=== PATIENT | female | born 1945 | race Caucasian/White ===

== ENCOUNTER 2025-03-05 12:03 | Inpatient (IN) | payer MEDICARE, SELFPAY ==
[2025-03-05] VITALS (12 sets, daily range): BP systolic 110–142; BP diastolic 40–112; PULSE 68–82; RESP 15–24; TEMP 36.9–37.2; O2SAT 91–98
--- NOTE | 2025-03-05 12:00 | DI.CT_ITS ---
Exam(s) CT RENAL COLIC WO EXAM: CT RENAL COLIC WO CLINICAL HISTORY: right flank and lower back pain. TECHNIQUE: Imaging Protocol: Axial computed tomography images with coronal and sagittal reformatted images were created and reviewed CONTRAST MATERIAL: Intravenous: none Oral: None COMPARISON: No exams were available for comparison FINDINGS: VISUALIZED LUNG BASES: There are bilateral pleural effusions, right larger than left. Mild infiltrate in the right lung base. Large hiatal hernia noted in the posterior mediastinum.. ABDOMEN: There is some skin thickening over the anterior right side of the abdomen and subcutaneous streaking-probable cellulitis pattern there is no drainable fluid collection at this level. A metallic foreign body is noted in the subcutaneous tissues anteriorly at the umbilicus level. No abscess seen at this level. There is a small amount of ascites in the right pericolic gutter region. Also in the most dependent aspect of the pelvis. LIVER: Somewhat cirrhotic appearing liver, difficult to assess without IV contrast. There is no obvious focal mass in the liver evident on this non infused study. GALLBLADDER/BILIARY: Gallbladder surgically absent. CBD is not dilated. PANCREAS: No evidence of pancreatic mass nor dilatation of the pancreatic duct. SPLEEN: Spleen is not enlarged. No obvious intrasplenic lesions. ADRENALS: There are no significant adrenal masses. KIDNEYS:There is a parapelvic cyst in the inferior aspect of the left kidney which measures 3 cm. Does not require further workup. There is a larger partially exophytic cyst off the inferior pole of the opposite-right kidney which measures 7 x 6.6 cm. There are no solid renal masses. No calculi evident in the kidneys. No solid renal masses. No hydronephrosis. No hydroureter.. ABDOMINAL AORTA: Abdominal aorta is not enlarged. There is calcified plaque at the origin of the celiac and superior mesenteric arteries. Patency is difficult to assess as there is no IV contrast. However, there are no obvious ischemic appearing bowel loops. LYMPH NODES: No significant lymphadenopathy. ABDOMINAL WALL: Right anterior abdominal and pelvic wall cellulitis pattern. GI: There is no evidence of bowel obstruction, free air, nor abscess. PELVIS: LYMPH NODES: There is no intrapelvic nor inguinal adenopathy. GI: No evidence of appendicitis.Sigmoid diverticulosis but no obvious acute diverticulitis seen. URINARY BLADDER: No calculi nor obvious masses evident REPRODUCTIVE: Uterus is surgically absent. No abnormal adnexal masses. There is some free fluid in the dependent aspect of the pelvis noted. OSSEOUS: No fractures. Severe advanced degenerative changes noted in the right hip. Left hip unremarkable. SI joints unremarkable. Multilevel degenerative disc disease in lumbar spinal scoliosis convex left. IMPRESSION: 1. Somewhat cirrhotic appearing liver and a small amount of ascites. Also bilateral pleural effusions, right larger than left and mild infiltrate lung bases. 2. Skin thickening and subcutaneous infiltration of the fat over the right lower anterior abdominal wall, having the appearance of cellulitis. There is no drainable fluid collection in the subcutaneous fat. 3. Sigmoid diverticulosis without evidence of acute diverticulitis. Prior cholecystectomy and hysterectomy. Preliminary virtual Radiology report was reviewed. RADIATION DOSE DELIVERED: 1,050.06mGy.cm Total DLP DATA REPOSITORY: All CT scans at this facility are submitted to the National Radiology Data Registry (NRDR) Dose Index Registry (DIR) with the [employer] (ACR). RADIATION OPTIMIZATION: All CT scans at this facility use at least one of these dose optimization techniques: automated exposure control; mA and/or kV adjustment per patient size (includes targeted exams where dose is matched to clinical indication); or iterative reconstruction.
--- NOTE | 2025-03-05 12:15 | DI.CT_ITS ---
Exam(s) CT LUMBAR SPINE RECONS EXAM: CT LUMBAR SPINE RECONS CLINICAL HISTORY: lower back pain. TECHNIQUE: Imaging Protocol: Axial computed tomography images with coronal and sagittal reformatted images were created and reviewed COMPARISON: CT CT RENAL COLIC WO from 03/05/2025 FINDINGS: Bones: There are no acute compression fractures but there is multilevel chronic degenerative disc disease.. There are no lytic osseous lesions evident. INDIVIDUAL LEVELS: T12-L1:No disc herniation nor canal stenosis. Mild facet joint degenerative changes. No foraminal stenosis. L1-2: Chronic advanced disc space narrowing and anterior osseous lipping. Also vacuum phenomena seen within the disc space. There is mild degenerative retrolisthesis of L1 upon L2. Annular bulging. Mild central spinal canal stenosis. No significant facet arthropathy. Severe bilateral foraminal st enosis. L2-3: This level also exhibits advanced disc space narrowing, predominately right-sided and there also lateral right-sided osteophytes. Posteriorly there is no obvious disc herniation. Mild central canal stenosis evident. Mild facet joint degenerative changes. No significant foraminal stenosis on the left side. However, there is severe spinal canal stenosis on the right side, this mostly related to the asymmetric right-sided disc space narrowing. L3-4: This level exhibits chronic disc space narrowing and sub endplate sclerosis. There is mild degenerative posterior retrolisthesis of L3 upon L4. There is no distinct focal disc herniation. There is mild central canal stenosis. There is mild foraminal stenosis on the left side and more prominent foraminal stenosis on the right side at this level. L4-5: This level exhibits mild uniform disc space narrowing and vacuum phenomenon within the disc space. Posteriorly there is broad annular bulging with moderate central spinal canal stenosis. There is also significant bilateral facet arthropathy. There is moderate-severe central spinal canal stenosis. Moderate bilateral foraminal stenosis. L5-S1: There is partial fusion of this disc space. No disc herniation at this level. Central canal dimensions are lower normal. There are advanced facet joint degenerative changes bilaterally. There is moderate-severe bilateral foraminal stenosis, this mostly related to posterior annular bulging and facet arthropathy. The visualized sacroiliac joints and sacrum appear unremarkable. PARASPINAL SOFT TISSUES: Visualized paraspinal tissues appear unremarkable. IMPRESSION: 1. No acute fractures. 2. Multi level chronic degenerative disc disease and facet arthropathy. 3. There is moderate-severe spinal canal stenosis at L4-5 level and milder canal stenosis at levels above this level. There is also significant multilevel significant foraminal stenosis as described per individual level as described above. Preliminary virtual Radiology report was reviewed. RADIATION DOSE DELIVERED: 1,050.06mGy.cm Total DLP DATA REPOSITORY: All CT scans at this facility are submitted to the National Radiology Data Registry (NRDR) Dose Index Registry (DIR) with the [employer] (ACR). RADIATION OPTIMIZATION: All CT scans at this facility use at least one of these dose optimization techniques: automated exposure control; mA and/or kV adjustment per patient size (includes targeted exams where dose is matched to clinical indication); or iterative reconstruction.
--- NOTE | 2025-03-05 12:16 | ED.GENADUL_ITS ---
Discharge Plan Disposition Patient Disposition: Admit to [facility] Condition: Stable Discharge Details Clinical Impression: Lumbar back pain, Lung infiltrate, Chills Primary Care Provider: Rambo Rg ED Provider: Johnny Brennan [place] Meds and New Rx's Prescriptions: No Action clotrimazole 1 % cream 1 applic topical BID cyclobenzaprine 5 mg tablet 5 mg PO TID PRN omeprazole 20 mg capsule,delayed release(DR/EC) 20 mg PO DAILY ursodiol 500 mg tablet 500 mg PO .COMPLEX Rx Instructions: 500 mg orally q am and 1000mg q pm; ibuprofen [Advil] 200 mg tablet 400 mg PO Q6H PRN HPI General Mode of arrival: EMS . Date/Time Provider Initiated Documentation: 03/05/25 12:09 . Limitations to Documentation: no limitations . Information obtained by: patient . History of Present Illness 79 year old F presents to the emergency department with the chief complaint of lower back pain, described as moderate, Quality is described as aching, and is localized to the back. Patient reports no radiation. Patient started experiencing this day(s) (2) and it has been constant. No relieving factors improve symptom(s), No exacerbating factors reported . Patient notes denies chest pain and shortness of breath. Patient did receive the following treatments prior to arrival, none Related Data Home Medications ?Medication ?Instructions ?Recorded ?Confirmed clotrimazole 1 % topical cream 1 applic topical BID 03/05/25 cyclobenzaprine 5 mg tablet 5 mg PO TID PRN 01/04/25 0 03/05/25 omeprazole 20 mg capsule,delayed 20 mg PO DAILY 03/05/25 release ursodiol 500 mg tablet 500 mg PO .COMPLEX 01/04/25 03/05/25 ibuprofen 200 mg tablet (Advil) 400 mg PO Q6H PRN 02/1103/05/25 Allergies Allergy/AdvReac Type Severity Reaction Status Date / Time Penicillins Allergy Unknown Unknown Verified 03/05/25 12:20 scopolamine Allergy Unknown Unknown Verified 03/05/25 12:20 General Stated Complaint: GenMedical ALVERTO: 3 Review of Systems All systems reviewed & are unremarkable except as noted in HPI and below Constitutional Constitutional: Denies chills, Denies fever(s) and Denies weakness Cardiovascular Cardiovascular: Denies chest pain and Denies dyspnea Respiratory Respiratory: Denies cough and Denies dyspnea Gastrointestinal Gastrointestinal: Denies abdominal pain, Denies nausea and Denies vomiting Musculoskeletal Musculoskeletal: Reports back pain Neurologic Neurologic: Denies weakness Exam Const General: no acute distress Orientation: alert [facility] Head: normal to inspection Ears: external ears normal General nose exam: external nose normal Mouth: moist mucous membranes Eyes General: appearance normal, both eyes and all related structures Neck Neck: normal visual inspection Resp Effort & Inspection: normal respiratory effort and able to speak in complete sentences Cardio Rate: regular rate GI Palpation: soft and nontender Back/Spine/Pelvis Back: no CVA tenderness Thoracic/Lumbar Spine: No thoracic spinal tenderness and lumbar spinal tenderness Skin General skin exam: no rashes or lesions noted Neuro General: patient alert and patient oriented x3 Extrem General: normal to inspection Psych Mental Status: mental status grossly normal Course Vital Signs Vital signs: Vital Signs Temperature 37.2 C 03/05/25 12:04 Pulse 79 03/05/25 12:04 Respiratory Rate 18 03/05/25 12:04 Blood Pressure 122/40 L 03/05/25 12:04 Pulse Oximetry 92 03/05/25 12:04 Temperature 37.2 C 03/05/25 12:04 Temperature Source Oral 03/05/25 12:04 Pulse 79 03/05/25 12:04 Respiratory Rate 18 03/05/25 12:04 Blood Pressure 122/40 L 03/05/25 12:04 Pulse Oximetry 92 03/05/25 12:04 Medical Decision Making 79-year-old female who states she has a history of rheumatoid arthritis and has chronic issues with her hips and back comes in with 2 days of intermittent chills without fevers as well as increased lower back pain. Denies any cough, chest pain, difficulty breathing, headaches, neck stiffness. She is stable on arrival and localizes the pain to the right lower back. Is no visible or palpable deformities. She has no saddle anesthesia. Intact distal sensation pulses. No leg swelling or calf tenderness. Suspect musculoskeletal back pain versus disc herniation but given her reported chills will check CBC CMP procalcitonin lactate UA and CT renal colic and recons of the lumbar spine. Patient feels better, x-ray per V rad showed no acute findings other than a pleural effusion which is likely related to her known cirrhosis. In-house radiology read as possible mediastinal mass recommended CT. CT renal colic and lumbar spine shows no acute findings. She has known cirrhosis which she is aware of. They also did note infiltrate on the left base of the lungs on the renal colic CT and states she has had a cough. Procalcitonin elevated but could be related to her underlying liver disease rather than sepsis. She is hemodynamically stable and has no fevers and no leukocytosis. Will reevaluate after CT chest ct on my read shows no mediastinal mass waiting for radiology read. Patient with 2 nurses was not able to get from the bed to a wheel chair. Will order iv dilaudid and discuss with hospitalist about admission Differential Diagnosis Differential Diagnosis: Muscle spasm, compression fracture, kidney stone, UTI Lab Data Lab results reviewed: Yes I reviewed the patient's lab results. PFSH All Active Problems (Updated 03/05/25 @ 16:41 by Johnny Brennan MD) Chills (Acute) Lung infiltrate (Acute) Lumbar back pain (Acute) Vitamin D deficiency (Acute) Senile cataract (Acute) Obesity (Chronic) GERD (gastroesophageal reflux disease) (Chronic) Biliary cirrhosis (Acute) Surgical History (Updated 01/04/25 @ 11:24 by Sergio Woodall RN) History of tonsillectomy History of hand surgery Left thumb tendon repair History of hysterectomy History of cholecystectomy History of appendectomy Social History Smoking/Tobacco Use Status: Former Tobacco Use Smoking risk assessment performed?: Yes Alcohol Intake: current Alcohol Intake frequency: a few times a week Alcohol type: beer, wine and hard liquor Drug use: Daily Substance use type: marijuana Housing: house Do you feel safe at home: Yes Do you feel safe in your relationship?: Yes
[2025-03-05 12:23] LABS: BE (Venous) 0 mmol/L (-2-3); HCO3 (Venous) 25 mmol/L (23-28); O2 Sat (Venous) 75 %; TCO2 (Venous) 22 mmol/L (24-29); pCO2 (Venous) 37 mmHg (41-51); pO2 (Venous) 41 mmHg
[2025-03-05 12:24] LABS: Abs Immature Grans 0.04 10^3/uL (0.0-0.06); HCT 35.5 % (36.0-46.0); HGB 11.4 g/dL (11.2-15.7); Immature Grans % 0.4 %; MCH 28.8 pg (27.0-33.0); MCHC 32.1 % (32.0-36.0); MCV 90 fL (80-95); MPV 9.7 fL (8.0-11.0); Platelet Count 153 10^3/uL (130-400); RBC 3.96 10^6/uL (3.93-5.22); RDW 14.4 % (11.7-14.6); RDW-SD 47.8 fL; WBC 10.54 10^3/uL (4.4-10.8)
--- NOTE | 2025-03-05 12:28 | DI.RAD_ITS ---
Exam(s) XR CHEST 2V PA LATERAL EXAM: XR CHEST 2V PA LATERAL CLINICAL HISTORY: ?pneumonia. TECHNIQUE: 2D digital imaging was performed. COMPARISON: CT CT RENAL COLIC WO from 03/05/[address] LUMBAR SPINE RECONS from 03/05/2025 FINDINGS: 2 views: There is mild cardiomegaly. There is abnormal widening of the right side of the mediastinum and significant narrowing of the trachea. Findings are consistent with possible mediastinal mass. There is also a hiatal hernia. Left lung is clear. There is a small right pleural effusion. Degenerative changes in both shoulders noted. IMPRESSION: Right pleural effusion. Abnormal widening of the right-side of the mediastinum and significant narrowing of the airway. Suspect mediastinal mass. Chest CT scan recommended. Preliminary virtual Radiology report was reviewed. Final report and recommendations called by myself to ER physician 03/05/2025 at 2:22 p.m. DATA REPOSITORY: RADIATION DOSE DELIVERED:
[2025-03-05] MEDS: Ketorolac 15 MG/ML VIAL IVP (12:31)
[2025-03-05 12:52] LABS: ALT 21 U/L (14-59); AST 29 U/L (15-37); Albumin 3.0 g/dL (3.4-5.0); Alkaline Phosphatase 100 U/L (46-116); Anion Gap 9.4 mmol/L (3-11); BUN 18 mg/dL (7-18); Bilirubin, Total 1.7 mg/dL (0.2-1.0); CO2 26.6 mmol/L (21.0-32.0); Calcium 8.9 mg/dL (8.5-10.1); Chloride 100 mmol/L (98-107); Estimated GFR 50.48 (mL/min/1.73m2); Glucose 112 mg/dL (74-106); Magnesium 1.7 mg/dL (1.8-2.4); Potassium 3.5 mmol/L (3.5-5.1); Sodium 136 mmol/L (136-145); TSH (W/Ref FT4) 3.75 uIU/mL (0.36-3.74); Total Protein 6.9 g/dL (6.4-8.2)
[2025-03-05 13:00] LABS: COVID-19 PCR Negative (Negative); RSV PCR Negative (Negative)
[2025-03-05 13:13] LABS: Procalcitonin 1.49 ng/mL
--- NOTE | 2025-03-05 13:42 | DI.VRAD_ITS ---
PROCEDURE INFORMATION: Exam: XR Chest Exam date and time: 03/05/2025 1:19 PM Age: 79 years old Clinical indication: Other: ? Pneumonia TECHNIQUE: Imaging protocol: Radiologic exam of the chest. Views: 2 views. COMPARISON: CT RENAL COLIC WO 03/05/2025 1:00 PM FINDINGS: Lungs: No consolidation. Pleural spaces: Small right pleural effusion. No pneumothorax. Heart/Mediastinum: Tortuous aorta and moderate cardiomegaly Bones/joints: Unremarkable. IMPRESSION: Small right pleural fluid Dictated and Authenticated by: Osvaldo Crowder MD. Orderin Mika Truner MD
--- NOTE | 2025-03-05 13:43 | DI.VRAD_ITS ---
PROCEDURE INFORMATION: Exam: CT Abdomen And Pelvis Without Contrast Exam date and time: 03/05/2025 1:00 PM Age: 79 years old Clinical indication: Other: Right flank lower back pain TECHNIQUE: Imaging protocol: Computed tomography of the abdomen and pelvis without contrast. COMPARISON: CT LUMBAR SPINE RECONS 03/05/2025 1:00 PM FINDINGS: Small pleural fluid and subsegmental atelectasis. Calcified left lower lobe granuloma. Moderate to large hiatal hernia Liver: Cirrhosis. Gallbladder and biliary ducts: Normal. No calcified stones. No ductal dilation. Pancreas: Normal. No ductal dilation. Spleen: Normal. No splenomegaly. Adrenal glands: Normal. No mass. Kidneys and ureters: Renal cysts No hydronephrosis. Stomach and bowel: Colonic diverticulosis No obstruction. No mucosal thickening. Appendix: No evidence of appendicitis. Intraperitoneal space: Small ascites No free air. No significant fluid collection. Vasculature: Unremarkable. No abdominal aortic aneurysm. Lymph nodes: Unremarkable. No enlarged lymph nodes. Urinary bladder: Unremarkable as visualized. Reproductive: Prior hysterectomy. Bones/joints: Unremarkable. No acute fracture. Soft tissues: Mild infiltration in the right lower anterior abdominal wall with overlying skin thickening IMPRESSION: Cirrhosis and small ascites Small pleural fluid Colonic diverticulosis without diverticulitis Nonspecific skin thickening and subcutaneous infiltration in the right lower abdominal wall. Correlate clinically for cellulitis. No discrete collection Dictated and Authenticated by: Osvaldo Crowder MD. Orderin Mika Turner MD
--- NOTE | 2025-03-05 13:44 | DI.VRAD_ITS ---
PROCEDURE INFORMATION: Exam: CT Lumbar Spine Without Contrast Exam date and time: 03/05/2025 1:00 PM Age: 79 years old Clinical indication: Other: Lower back pain TECHNIQUE: Imaging protocol: Computed tomography of the lumbar spine without contrast. Radiation optimization: All CT scans at this facility use at least one of these dose optimization techniques: automated exposure control; mA and/or kV adjustment per patient size (includes targeted exams where dose is matched to clinical indication); or iterative reconstruction. COMPARISON: CT RENAL COLIC WO 03/05/2025 1:00 PM FINDINGS: Bones/joints: No acute fracture. Mild levoscoliosis of the lumbar spine. Chronic multilevel loss of vertebral body height and loss of lumbar lordosis presumed degenerative. Retrolisthesis of L2 on L3 and L3 on L4 presumed degenerative. Minimal anterolisthesis of L4 on L5 and L5 on S1 Severe multilevel foraminal stenosis most pronounced at L3-L4 and L5-S1. Moderate central canal stenosis at L4-L5. Soft tissues: Unremarkable. IMPRESSION: Multilevel degenerative changes most pronounced at L3-L4 and L4-L5 Dictated and Authenticated by: Osvaldo Crowder MD. Orderin Mika Turner MD
--- NOTE | 2025-03-05 14:15 | DI.CT_ITS ---
Exam(s) CT CHEST W EXAM: CT CHEST W CLINICAL HISTORY: ?mediastinal mass. TECHNIQUE: Multi planar reconstructions were performed. CONTRAST MATERIAL: Omnipaque 350; 75 cc COMPARISON: CR,XR XR CHEST 2V PA LATERAL from 03/05/2025 FINDINGS: CHEST: LUNGS: Small bilateral pleural effusions, right larger than left. Calcified granulomas noted in left lung base posterior basal segment left lower lobe. There is mild infiltrate in the right lower lobe. Lesser amount in the posterior basal segment of the left lower lobe. No significant focal findings in the trachea and mainstem bronchi. No bronchiectasis. MEDIASTINUM: There is a large retrocardiac hiatal hernia. There is no hilar nor mediastinal adenopathy. The right mediastinal finding on chest x-ray appears to correspond to a somewhat ectatic SVC but there is no mass nor lymphadenopathy at this level. Visualized thyroid unremarkable. CARDIAC: Mild cardiomegaly. No pericardial effusion.Caliber of the thoracic aorta is within normal limits. No evidence of dissection. VISUALIZED UPPER ABDOMEN:Previous cholecystectomy. OSSEOUS: No fractures. No significant osseous lesions.. IMPRESSION: 1. Large retrocardiac hiatal hernia. No other mediastinal masses. The finding on chest x-ray appears to correspond to a somewhat ectatic SVC. 2. Mild cardiomegaly. No pericardial effusion. 3. Infiltrates in the posterior basal segment of both lower lobes, larger on the right side and there is also a small right pleural effusion. 4. There are few lymph nodes in the right infrahilar region around the right main pulmonary vein. These correspond to a small right pericardiac density on chest x-ray. Findings discussed by phone with ER physician 03/05/2025 at 4:35 p.m. RADIATION DOSE DELIVERED: 470.51mGy.cm Total DLP DATA REPOSITORY: All CT scans at this facility are submitted to the National Radiology Data Registry (NRDR) Dose Index Registry (DIR) with the [employer] (ACR). RADIATION OPTIMIZATION: All CT scans at this facility use at least one of these dose optimization techniques: automated exposure control; mA and/or kV adjustment per patient size (includes targeted exams where dose is matched to clinical indication); or iterative reconstruction.
[2025-03-05 15:06] LABS: Glucose Negative (Negative)
[2025-03-05 15:19] LABS: RBC 0-2 HPF (0-2)
[2025-03-05 15:20] LABS: C & S Indicated? No
--- NOTE | 2025-03-05 17:15 | W.PM.HP.N ---
Date of service: 03/05/25 Time of Service: 17:15 Assessment and Plan Assessment and plan (1) Community acquired bilateral lower lobe pneumonia: Status: Acute Assessment and plan: admit to med/surg continue levaquin initiated in the ED d/t allergy profile duoneb qid, albuterol prn add mucinex I/S and acapella (2) GERD (gastroesophageal reflux disease): Status: Chronic Assessment and plan: continue PPI (3) Biliary cirrhosis: Status: Acute Assessment and plan: stable (4) Obesity: Status: Chronic Assessment and plan: nutrition consultation (5) Low back pain: Status: Acute Assessment and plan: scheduled apap ibuprofen prn lidocaine patch PT consultation discussed with Dr Martinez History of Present Illness Narrative: This is 79-year-old female patient past medical history significant for obesity GERD, cirrhosis, back pain who presents to the emergency department for complaints of generalized weakness malaise back pain exacerbation. Workup in the emergency department most concerning for bilateral lower lobe pneumonia. She also was unable to safely be re-ambulated, requiring dilaudid IV. Review of Systems All systems reviewed & are unremarkable except as noted in HPI and below PFSH All Active Problems (Updated 03/05/25 @ 18:14 by Joan Larkin NP) Low back pain (Acute) Community acquired bilateral lower lobe pneumonia (Acute) Chills (Acute) Lung infiltrate (Acute) Lumbar back pain (Acute) Vitamin D deficiency (Acute) Senile cataract (Acute) Obesity (Chronic) GERD (gastroesophageal reflux disease) (Chronic) Biliary cirrhosis (Acute) Surgical History (Updated 01/04/25 @ 11:24 by Sergio Woodall RN) History of tonsillectomy History of hand surgery Left thumb tendon repair History of hysterectomy History of cholecystectomy History of appendectomy Social History Smoking/Tobacco Use Status: Former Tobacco Use Smoking risk assessment performed?: Yes Alcohol Intake: current Alcohol Intake frequency: a few times a week Alcohol type: beer, wine and hard liquor Drug use: Daily Substance use type: marijuana Housing: house Do you feel safe at home: Yes Do you feel safe in your relationship?: Yes Meds Allergies and Home Medications Allergies Allergy/AdvReac Type Severity Reaction Status Date / Time Penicillins Allergy Unknown Unknown Verified 03/05/25 12:20 scopolamine Allergy Unknown Unknown Verified 03/05/25 12:20 Home Medications ?Medication ?Instructions ?Recorded ?Confirmed ?Type clotrimazole 1 % topical cream 1 applic topical BID 01/04/25 03/05/25 History cyclobenzaprine 5 mg tablet 5 mg PO TID PRN 01/04/25 03/05/25 History omeprazole 20 mg capsule,delayed 20 mg PO DAILY 01/04/25 03/05/25 History release ursodiol 500 mg tablet 500 mg PO .COMPLEX 01/04/25 03/05/25 History ibuprofen 200 mg tablet (Advil) 400 mg PO Q6H PRN 03/05/25 03/05/25 History Results Labs 03/05/25 12:14 03/05/25 12:00 Labs: Laboratory Results - last 24 hr 03/05/25 03/05/25 03/05/25 12:00 12:14 14:58 WBC 10.54 RBC 3.96 Hgb 11.4 Hct 35.5 L MCV 90 MCH 28.8 MCHC 32.1 RDW 14.4 Plt Count 153 MPV 9.7 Immature Gran % 0.4 Neutrophils % 83.5 Lymphocytes % 4.6 Monocytes % 11.3 Eosinophils % 0.0 Basophils % 0.2 Nucleated RBC % 0.0 Absolute Neutrophils 8.81 H Absolute Lymphocytes 0.48 L Absolute Monocytes 1.19 H Absolute Eosinophils 0.00 Absolute Basophils 0.02 VBG pH 7.43 H VBG pCO2 37 L VBG pO2 41 VBG HCO3 25 VBG Total CO2 22 L VBG O2 Saturation 75 VBG Base Excess 0 VBG Lactate 1.3 Sodium 136 Potassium 3.5 Chloride 100 Carbon Dioxide 26.6 Anion Gap 9.4 BUN 18 Creatinine 1.1 H Est GFR (CKD-EPI 2020) 50.48 Glucose 112 H Calcium 8.9 Magnesium 1.7 L Total Bilirubin 1.7 H AST 29 ALT 21 Alkaline Phosphatase 100 Total Protein 6.9 Albumin 3.0 L Procalcitonin 1.49 TSH 3.75 H Free T4 1.39 Urine Color Dark Yellow Urine Clarity Sl Cloudy Urine pH 5.5 Ur Specific [place] 1.015 Urine Protein 30 H Urine Ketones Trace H Urine Blood Negative Urine Nitrite Negative Urine Bilirubin Small H Urine Urobilinogen 1.0 H Ur Leukocyte Esterase Trace H Urine RBC 0-2 Urine WBC 3-5 Ur Epithelial Cells Few Urine Crystals Negative Urine Bacteria Moderate Urine Casts 3-5 Hyaline Urine Mucus Negative Urine Other Few Transitional Ur Culture Indicated? No Urine Glucose Negative COVID-19 Source Nasopharynx SARS-CoV-2 (PCR) Negative Influenza Type A (PCR) Negative Influenza Type B (PCR) Negative RSV (PCR) Negative Last Vital Signs Temp 37.2 C 03/05/25 12:04 Pulse 79 03/05/25 12:04 Resp 18 03/05/25 12:04 BP 122/40 L 03/05/25 12:04 Pulse Ox 92 03/05/25 12:04 PAWSS Have you Been Recently Intoxicated or Drunk Within the Last 30 days?: No Have you Ever Experienced Previous Episodes of Alcohol Withdrawal?: No Have you ever Experienced Withdrawal Seizures?: No Have you ever Experienced Delirium Tremens(DT)s?: No Have you ever undergone Alcohol Rehabilitation Treatment (i.e, inpt ot outpatient treatment programs)?: No Have you ever Experienced Blackouts?: No Have you ever Combined Alcohol with other Downers within the last 90 days?: No Have you ever Combined Alcohol with any other Substance of Abuse during the last 90 days?: No Result: 0 Time Spent Time spent with Patient: 55-74 minutes Time was spent: preparing to see the patient(eg.review tests), obtaining and/or reviewing separately otained hiistory, ordering medications,tests, procedures and indepentently interpreting results
[2025-03-05] MEDS: HYDROmorphone 2 MG/ML SYR 1 MG IVP (17:35)
[2025-03-05] MEDS: levoFLOXacin 750 MG/150 ML BAG 100 MG IVPB (17:36)
--- NOTE | 2025-03-05 17:46 | W.PC.ACHO ---
Registration Status: REG ER Primary Language: Preferred Language: ED Information & Data Chief Complaint GenMedical 03/05/25 12:18 Chief Complaint GenMedical 03/05/25 12:17 Triage Note STEPHON - has not been feeling 03/05/25 12:04 well since thursday Hot cold flashes with increased fatigue. Lower right back pain increased yesterday (Last Updated 01/04/25 @ 11:24 by Sergio Woodall RN) History of tonsillectomy History of hand surgery History of hysterectomy History of cholecystectomy History of appendectomy Most Recent Vital Signs Temperature 37.2 C 03/05/25 12:04 Temperature Source Oral 03/05/25 12:04 Pulse 79 03/05/25 12:04 Respiratory Rate 18 03/05/25 12:04 Blood Pressure 122/40 L 03/05/25 12:04 Pulse Oximetry 92 03/05/25 12:04 Pain Level 5 03/05/25 17:35 Allergies Penicillins Allergy (Unknown, Verified 03/05/25 12:20) Unknown scopolamine Allergy (Unknown, Verified 03/05/25 12:20) Unknown Precautions Isolation Standard precaution 03/05/25 12:18 Active Medications Generic Name Dose Route Start Last Admin Trade Name Traeq PRN Reason Stop Dose Admin Levofloxacin 750 mg in 150 mls @ 100 mls/hr 03/05/25 16:36 03/05/25 17:36 Levaquin Premixed Bag IVPB 03/05/25 18:05 100 mls/hr NOW ONE Administration IV IV Catheter Type [Right Saline Lock Antecubital] IV Catheter Gauge [Right 18 Antecubital] Diet Orders Category Date Time Status Regular/Normal [DIET] Nutrition 03/05/25 Dinner Active Diagnostics 03/05/25 03/05/25 03/05/25 Range/Units 14:58 12:14 12:00 WBC 10.54 (4.4-10.8) 10^3/uL RBC 3.96 (3.93-5.22) 10^6/uL Hgb 11.4 (11.2-15.7) g/dL Hct 35.5 L (36.0-46.0) % MCV 90 (80-95) fL MCH 28.8 (27.0-33.0) pg MCHC 32.1 (32.0-36.0) % RDW 14.4 (11.7-14.6) % Plt Count 153 (130-400) 10^3/uL MPV 9.7 (8.0-11.0) fL Immature Gran % 0.4 % Neutrophils % 83.5 % Lymphocytes % 4.6 % Monocytes % 11.3 % Eosinophils % 0.0 % Basophils % 0.2 % Nucleated RBC % 0.0 (0.0-0.3) % Absolute Neutrophils 8.81 H (1.2-6.7) 10^3/uL Absolute Lymphocytes 0.48 L (1.2-3.4) 10^3/uL Absolute Monocytes 1.19 H (0.1-0.8) 10^3/uL Absolute Eosinophils 0.00 (0.0-0.7) 10^3/uL Absolute Basophils 0.02 (0.0-0.2) 10^3/uL VBG pH 7.43 H (7.31-7.41) VBG pCO2 37 L (41-51) mmHg VBG pO2 41 mmHg VBG HCO3 25 (23-28) mmol/L VBG Total CO2 22 L (24-29) mmol/L VBG O2 Saturation 75 % VBG Base Excess 0 (-2-3) mmol/L VBG Lactate 1.3 (<or=2.0) mmol/L Sodium 136 (136-145) mmol/L Potassium 3.5 (3.5-5.1) mmol/L Chloride 100 (98-107) mmol/L Carbon Dioxide 26.6 (21.0-32.0) mmol/L Anion Gap 9.4 (3-11) mmol/L BUN 18 (7-18) mg/dL Creatinine 1.1 H (0.55-1.02) mg/dL Est GFR (CKD-EPI 2020) 50.48 (mL/min/1.73m2) Glucose 112 H (74-106) mg/dL Calcium 8.9 (8.5-10.1) mg/dL Magnesium 1.7 L (1.8-2.4) mg/dL Total Bilirubin 1.7 H (0.2-1.0) mg/dL AST 29 (15-37) U/L ALT 21 (14-59) U/L Alkaline Phosphatase 100 (46-116) U/L Total Protein 6.9 (6.4-8.2) g/dL Albumin 3.0 L (3.4-5.0) g/dL Procalcitonin 1.49 ng/mL TSH 3.75 H (0.36-3.74) uIU/mL Free T4 1.39 (0.76-1.46) ng/dL Urine Color Dark Yellow (Yellow) Urine Clarity Sl Cloudy (Clear) Urine pH 5.5 (5-8) Ur Specific [place] 1.015 (1.005-1.025) Urine Protein 30 H (Neg-Trace) mg/dL Urine Ketones Trace H (Negative) mg/dL Urine Blood Negative (Negative) Urine Nitrite Negative (Negative) Urine Bilirubin Small H (Negative) Urine Urobilinogen 1.0 H (Up to 0.2) mg/dL Ur Leukocyte Esterase Trace H (Negative) Urine RBC 0-2 (0-2) HPF Urine WBC 3-5 (0-5) HPF Ur Epithelial Cells Few (Negative) HPF Urine Crystals Negative (Negative) HPF Urine Bacteria Moderate (Negative) HPF Urine Casts 3-5 Hyaline (Negative) LPF Urine Mucus Negative (Negative) Urine Other Few Transitional (Negative) Ur Culture Indicated? No Urine Glucose Negative (Negative) mg/dL COVID-19 Source Nasopharynx SARS-CoV-2 (PCR) Negative (Negative) Influenza Type A (PCR) Negative (Negative) Influenza Type B (PCR) Negative (Negative) RSV (PCR) Negative (Negative) 03/05/25 17:15 Blood Culture - Pending Blood 03/05/25 17:15 Blood Culture - Pending Blood Intake and Output - 24 Hour Total 03/05/25 11:49 thru 03/05/25 12:17 Intake Total 10 Balance 10 Weight 112.854 kg Intake: IV 10 Falls Risk Assessment History of Falls Previous History 03/05/25 17:12 Contributing Factors Impairments 03/05/25 17:12 Ambulatory Aids Uses ambulatory device + 03/05/25 17:12 Tubes/Lines With any additional score 03/05/25 17:12 Gait Evaluation W/any additional score 03/05/25 17:12 Fall Total Score 88 03/05/25 17:12 Level of Risk Maximum Risk 03/05/25 17:12 Problems Community acquired bilateral lower lobe pneumonia (Acute) Obesity (Chronic) GERD (gastroesophageal reflux disease) (Chronic) Biliary cirrhosis (Acute) v v v v v v v v v Sending and/or Receiving Nurses: Please use comment section below to note any information pertinent to the patient hand-off not included above. Information / Comments: report received, all questions answered. Report received from: LAZ Miranda [id number]
[2025-03-05] MEDS: Cyclobenzaprine 10 MG TAB 5 MG PO (18:43)
[2025-03-05] MEDS: Lidocaine 5% Patch 2 PATCH TP (18:44)
[2025-03-05] MEDS: Acetaminophen 325 MG TAB 650 MG PO (20:31)
[2025-03-05] MEDS: Normal Saline Flush 10 ML SYR IVP (20:32)
[2025-03-06] VITALS (7 sets, daily range): BP systolic 100–113; BP diastolic 57–60; PULSE 74–90; RESP 17–18; TEMP 36.7; O2SAT 90–95
[2025-03-06] MEDS: Albuterol/Ipratropium 3 ML UPD VIAL UPD ×2 (00:03→05:54)
[2025-03-06] MEDS: Ibuprofen 200 MG TAB 400 MG PO ×2 (05:02→10:33)
[2025-03-06 07:02] LABS: Abs Immature Grans 0.04 10^3/uL (0.0-0.06); HCT 32.2 % (36.0-46.0); HGB 10.6 g/dL (11.2-15.7); Immature Grans % 0.4 %; MCH 29.5 pg (27.0-33.0); MCHC 32.9 % (32.0-36.0); MCV 90 fL (80-95); MPV 10.3 fL (8.0-11.0); Platelet Count 154 10^3/uL (130-400); RBC 3.59 10^6/uL (3.93-5.22); RDW 14.6 % (11.7-14.6); RDW-SD 48.1 fL; WBC 8.99 10^3/uL (4.4-10.8)
[2025-03-06 07:35] LABS: ALT 16 U/L (14-59); AST 22 U/L (15-37); Albumin 2.4 g/dL (3.4-5.0); Alkaline Phosphatase 88 U/L (46-116); Anion Gap 9.5 mmol/L (3-11); BUN 20 mg/dL (7-18); Bilirubin, Total 1.1 mg/dL (0.2-1.0); CO2 25.5 mmol/L (21.0-32.0); Calcium 8.5 mg/dL (8.5-10.1); Chloride 101 mmol/L (98-107); Estimated GFR 56.60 (mL/min/1.73m2); Glucose 95 mg/dL (74-106); Potassium 3.5 mmol/L (3.5-5.1); Sodium 136 mmol/L (136-145); Total Protein 6.1 g/dL (6.4-8.2)
[2025-03-06] MEDS: Acetaminophen 325 MG TAB 650 MG PO ×4 (08:14→19:37)
[2025-03-06] MEDS: levoFLOXacin 500 MG, levoFLOXacin 250 MG 750 MG PO (08:16)
[2025-03-06] MEDS: Omeprazole 20 MG CAPCR PO (08:16)
[2025-03-06] MEDS: Enoxaparin 40 MG/0.4 ML SYR SC (08:19)
[2025-03-06] MEDS: Normal Saline Flush 10 ML SYR IVP ×3 (08:25→19:38)
--- NOTE | 2025-03-06 08:44 | PDOC.CMIN ---
Date of service: 03/06/25 Time of Service: 14:44 Care Management Initial Assmt Initial Assessment Reason for Hospitalization: pneumonia, back pain, cirrhosis Functional Status/Living Situation Patient Presentation: Angeline was awake and lying in bed when CM met with her. She presented to the ED yesterday afternoon for evaluation of lower back pain, described as moderate. A PT consult was placed, and the recommendation is for discharge to a SNF for LTP. Angeline currently lives with her son, Мария, and [id number], Kaylen, in [place], [place]. She shares that she co-owns two homes in [place] with her son but feels more comfortable [facility]. Angeline is connected with the [place] [facility] ([facility]), and her foster care case manager is Bernadette, who can be reached at . Angeline is not currently on Choices for Care and has not completed the Long-Term Medicaid application due to concerns about potential financial barriers. Angeline reports that she is experiencing pain at present. At home, her baseline pain is typically steady at 2?4/10. She currently manages her pain with Tylenol, which she reports is inconsistently effective. Functionally, Angeline states she is independent while living at her son's home. However, she has recently begun using a wheelchair due to increased pain and ceased driving approximately four months ago and now utilizes [facility] as a primary form of transportation. Angeline states she is on the 'board' for [employer]. Angeline states her mu-ism is Unitarian Universalist. CM completed advance directives with Angeline during the visit; Copies sent to [place] AD registry, and PCP office. She is agreeable to SNF placement and has requested to take the night to consider her preferred location for referral. CM will continue to follow up. 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 ) Medications Medication Management: No Issues/Barriers identified Physical Functioning/Mobility Assistive Device: utilizes a wheelchair her son got her. Advance Directives Advance Directives: Do you have an Advance Directive: Y Today, 15:56 AD On File at [facility]: Y Today, 15:56 Date Asked 03/06/25 Today, 15:56 AD Date Reviewed COLST On File at [facility] No 03/05/25, 15:35 COLST Date Scanned Comment: Advanced directives completed on this date with this contract writer. Will have them scanned into the pateints chart. Code Status Resuscitation Status Full Code Portal Pt does not currently have a portal and education provided: Yes Insurance Coverage/Financial Issues Insurance: Medicare Part A & B - [id number] [employer]ETNA [facility] Ins - [id number] Care Team Visit Care Team Role Provider Type Lianet Alfonso NP MD [facility] STAFF PHYSICIAN Rambo Rg Primary Care Provider NON-[facility] STAFF PHYSICIAN InPatient Froy Awan Other Providers OTHER Johnny Brennan MD Emergency Provider [facility] STAFF PHYSICIAN Pio Martinez MD Admit Provider [facility] STAFF PHYSICIAN Attending Provider Discharge Potential Discharge Needs: PT Evaluation and PCP F/U Appt Anticipated Barriers to Discharge: None Identified Patient/Family Education Needs: Review discharge instructions, discuss Ask Me Three Transportation: Private vehicle Plan: Anticipate Angeline will be discharged to a SNF prior to going home. It is recommended Angeline will follow up with her community providers and continue per her plan of care. Angeline's transport is pending PT recommendation and patient mobility at discharge. CM will continue to follow. Social Determinants of Health Screening Will the Patient Participate in the Screening?: Declined to provide Do you worry about having a steady place to live?: no PFSH All Active Problems (Updated 03/05/25 @ 18:14 by Joan Larkin NP) Low back pain (Acute) Community acquired bilateral lower lobe pneumonia (Acute) Chills (Acute) Lung infiltrate (Acute) Lumbar back pain (Acute) Vitamin D deficiency (Acute) Senile cataract (Acute) Obesity (Chronic) GERD (gastroesophageal reflux disease) (Chronic) Biliary cirrhosis (Acute) Surgical History (Updated 01/04/25 @ 11:24 by Sergio Woodall RN) History of tonsillectomy History of hand surgery Left thumb tendon repair History of hysterectomy History of cholecystectomy History of appendectomy Social History Smoking/Tobacco Use Status: Former Tobacco Use Smoking risk assessment performed?: Yes Alcohol Intake: current Alcohol Intake frequency: a few times a week Alcohol type: beer, wine and hard liquor Drug use: Daily Substance use type: marijuana Housing: house Do you feel safe at home: Yes Do you feel safe in your relationship?: Yes Readmission Within the Past 30 Days Yes or No: No
[2025-03-06] MEDS: Clotrimazole 1% 15 GM TUBE TP (09:23)
[2025-03-06] MEDS: Patch Removal 1 EACH TP (09:24)
[2025-03-06] MEDS: VANCOMYCIN/WATER (PEG) 2 GM/400 ML BAG IVPB (10:18)
[2025-03-06] MEDS: Cyclobenzaprine 10 MG TAB 5 MG PO (10:34)
--- NOTE | 2025-03-06 12:19 | IN_ITS ---
PT Notes Visit Reasons: Pneumonia, Back Pain, Cirrhosis Physical Therapy Inpatient Initial Evaluation Date:03/06/2025 Referring Doctor: Joan Larkin PATTERN KEEPER PT Orders: PT CONSULT: PT evaluation and treatment Precautions: IV access right antecubital, fall risk Patient Profile/Admitting Diagnosis: Pt is an 80 yo female who presented to the ED on 03/05/25 with severe right hip and low back pain x 2 days. 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 Pt treated with antibiotic. and started Flexeral for pain management. No imaging of hip completed PMHX: Low back pain (Acute) Community acquired bilateral lower lobe pneumonia (Acute) Chills (Acute) Lung infiltrate (Acute) Lumbar back pain (Acute) Vitamin D deficiency (Acute) Senile cataract (Acute) Obesity (Chronic) GERD (gastroesophageal reflux disease) (Chronic) Biliary cirrhosis (Acute) Surgical History (Updated 01/04/25 @ 11:24 by Sergio Woodall RN) History of tonsillectomy History of hand surgery Left thumb tendon repair History of hysterectomy History of cholecystectomy History of appendectomy Social History/Home Situation: Resides in her son and dtr in law home. she is w/c bound, nonambulatory for 2+years. She utilizes a commode to hold onto ken ria on her forearms to support her for swiveling her feet to sit on w/c. She uses the grab bar leaning on her forearms to get onto the toilet which has a raised toilet seat. Pt reports she is able to go out of the 2 rooms which are considered her space into the rest of the home. Pt reported she transitions to sit at foot of her bed by sliding down to end of bed then using the arms of a commode to pull trunk upright after her feet are on the floor. Equipment Owned/DME: w/c ( donation) commode, raised toilet seat, grab bar near the toilet., Elena wheelchair. Subjective: Pt reports it hurts to just roll how do you expect me to get sitting at the edge of the bed unless they give me something else. [ Nurse present and aware. Pt was premedicated 1/2 hour before session. Objective: [] General Observation: female supine in bed, ER BLE , (+) charcot joint noted B, stockinette discoloration to BLE. Pt with weight shift toward right Mental Status: A+Ox4 pleasant cooperative, able to follow instructions and able to provide direction for her care to reduce pain. Pain: 2 at rest and 10 with mobility low back at L4 and right LE ROM: [] Right Upper Extremity: WNL Left Upper Extremity: WNL Right Lower Extremity: hip flexion 70 degrees AAROM, hip abduction 12 degrees AAROM, knee 0- 94 degrees, ankle DF to neutral, flat footed with collapsed arch noted Left Lower Extremity: hip flexion 90 degrees, hip abduction 15 degrees, knee 0-98 degrees, ankle DF to neutral with (+) charcot joint Strength: [] Right Upper Extremity: 4/5 Left Upper Extremity: 4/5 Right Lower Extremity: Hip flexion: 2- /5; hip abduction: 2- /5; hip extension: 2- /5; knee extension: 2- /5; knee flexion: 2- /5 ankle DF: 2 /5 ; ankle PF: 2 /5 Left Lower Extremity: Hip flexion: 3- /5; hip abduction: 2 /5; hip extension: 3-/5; knee extension: 3/5; knee flexion: 2 /5 ankle DF: 2/5 ; ankle PF: 2 /5 Sensation: Intact to pain and touch Bed Mobility/Transfers: Rolling to right with rail CGA with increase time to move LEs , Roll to the left with rail Max Assist of 1 Supine to sit - pt able to get BLE off bed with min A and attempted to perform however severe pain in back even with HOB elevated to highest level. Sit to stand not able to attempt at this time Stand to sit not able to attempt at this time Bed to chair not able to attempt at this time Gait:non ambulatory at baseline Balance: [] Static Sitting: not able to assess Dynamic Sitting: not able to attempt at this time Static Standing:not able to attempt at this time Dynamic Standing: not able to attempt at this time Special Tests: [] Mobility Limitations Standardized Measure [] [facility] AM-PAC 6 clicks Basic Mobility Inpatient Short Form: [] Raw Score: 7 CMS Score: 92.36% Informed Consent/Education: Patient instructed in purpose of PT consult. Assessment: Pt demonstrates significant RLE ROM deficits and pain. Pt with varus and valgus instability of right knee resulting in significant pain with ROM and functional movements in supine at this time. Pt vocalizing pain in right knee and hip with repositioning. Pt also limited by B charcot joints . Pt attempted supine to sit able to get BLE off bed slowly with mod A however with attempts at transitioning trunk from supine to sit pt yells out. unable to achieve seated position. Pt dependent of 4 to boost in bed d/t pain in LB and right LE. Requested further imaging of right hip/pelvis from medical team. Patient is an 79 yo female who presents with clinical signs and symptoms consistent with current/admitting diagnoses that have resulted to mobility limitations, gait instability, generalized weakness, and impairment of motor control as demonstrated by the following impairment level findings: 1. Decreased strength to BLE major muscle groups 2. Impaired standing balance 3. Limitation of joint range of motion in B knee 4. Pain in Right hip and low back at L4 5. inability to tolerate unsupported sitting 6. impaired functional activity tolerance Impairments are contributing to the following functional limitations: 1. Inability to safely ambulate without assistive device 2. Increase completion time for mobility ADL performance 3. Increased fall risk 4. decline in bed mobility 5. decline in transfer skills Patient is assessed as a moderate complexity based on the following: History: 80-year-old female with impairment level findings, functional limitations, and past medical history as indicated above Examination: Demonstrable impairment in strength, balance, and mobility level with underlying impairments and functional limitations as documented above Presentation: evolving Decision Making:moderate Goalsx 1week: 1. roll B directions with rails with min A 2. supine to sit at EOB with max A of 2 3. sit at EOB with min A in prep for transfers 4. participate in OOB assessment to chair Plan of Care/Treatment Plan: 1-2x/day, 7 days/week x 1 week. Plan of care has been reviewed with the MORTUARY OPERATIONS MANAGER providing the service under Physical Therapy direction. Initiate Physical Therapy intervention for strengthening, bed mobility, transfers, gait, stairs, balance training, use of assistive device. DISCHARGE RECOMMENDATIONS: SNF VS LTP if unable to return to prior level of function TREATMENT CODE/TIME: [id number] Thank you for the opportunity to participate in the care of this patient. Marianne Lee, PT [facility]
[2025-03-06] MEDS: Magnesium Chloride 64 MG TABCR PO (13:48)
[2025-03-06] MEDS: Lidocaine 5% Patch 2 PATCH TP (17:47)
[2025-03-06 19:43] LABS: Legionella Ag Detection Urine Negative (Negative)
--- NOTE | 2025-03-06 20:00 | W.PM.PROGNOT ---
Date of Service Date of service: 03/06/25 Time of Service: 20:00 Assessment and Plan Assessment and plan (1) Community acquired bilateral lower lobe pneumonia: Status: Acute Assessment and plan: admit to med/surg continue levaquin initiated in the ED d/t allergy profile; + BC gm + cocci - add vanco - await sensitivities and narrow duoneb qid, albuterol prn add mucinex I/S and acapella (2) GERD (gastroesophageal reflux disease): Status: Chronic Assessment and plan: continue PPI (3) Biliary cirrhosis: Status: Acute Assessment and plan: stable (4) Obesity: Status: Chronic Assessment and plan: nutrition consultation (5) Low back pain: Status: Acute Assessment and plan: scheduled apap ibuprofen prn lidocaine patch PT consultation discussed with Dr Martinez Exam Const General: no acute distress Orientation: alert HENMT Head: normal to inspection Ears: external ears normal General nose exam: external nose normal Mouth: moist mucous membranes Eyes General: appearance normal, both eyes and all related structures Neck Neck: normal visual inspection Resp Effort & Inspection: normal respiratory effort and able to speak in complete sentences Cardio Rate: regular rate GI Palpation: soft and nontender Back/Spine/Pelvis Back: no CVA tenderness Thoracic/Lumbar Spine: No thoracic spinal tenderness and lumbar spinal tenderness Skin General skin exam: no rashes or lesions noted Neuro General: patient alert and patient oriented x3 Extrem General: normal to inspection Psych Mental Status: mental status grossly normal Objective Last Vital Signs Temp 36.7 C 03/06/25 19:22 Pulse 74 03/06/25 19:22 Resp 18 03/06/25 19:22 BP 113/60 03/06/25 19:22 Pulse Ox 95 03/06/25 19:22 Laboratory Results - last 24 hr 03/06/25 06:25 WBC 8.99 RBC 3.59 L Hgb 10.6 L Hct 32.2 L MCV 90 MCH 29.5 MCHC 32.9 RDW 14.6 Plt Count 154 MPV 10.3 Immature Gran % 0.4 Neutrophils % 78.5 Lymphocytes % 9.9 Monocytes % 10.9 Eosinophils % 0.1 Basophils % 0.2 Nucleated RBC % 0.0 Absolute Neutrophils 7.05 H Absolute Lymphocytes 0.89 L Absolute Monocytes 0.98 H Absolute Eosinophils 0.01 Absolute Basophils 0.02 Sodium 136 Potassium 3.5 Chloride 101 Carbon Dioxide 25.5 Anion Gap 9.5 BUN 20 H Creatinine 1.0 Est GFR (CKD-EPI 2020) 56.60 Glucose 95 Calcium 8.5 Total Bilirubin 1.1 H AST 22 ALT 16 Alkaline Phosphatase 88 Total Protein 6.1 L Albumin 2.4 L PAWSS Have you Been Recently Intoxicated or Drunk Within the Last 30 days?: No Have you Ever Experienced Previous Episodes of Alcohol Withdrawal?: No Have you ever Experienced Withdrawal Seizures?: No Have you ever Experienced Delirium Tremens(DT)s?: No Have you ever undergone Alcohol Rehabilitation Treatment (i.e, inpt ot outpatient treatment programs)?: No Have you ever Experienced Blackouts?: No Have you ever Combined Alcohol with other Downers within the last 90 days?: No Have you ever Combined Alcohol with any other Substance of Abuse during the last 90 days?: No Positive Blood Alcohol level on Presentation? [PCS.BAL]: No Evidence of Increased Autonomic Activity (i.e. HR>120, tremor, sweating, agitation, nausea)?: No Result: 0 Time Spent with Patient Time Spent with Patient: 35-49 minutes Time was spent: preparing to see the patient(eg.review tests), ordering medications,tests, procedures, referring, communicating with other health animal care service worker, indepentently interpreting results, counseling the patient and care coordination
--- NOTE | 2025-03-07 | DI.RAD_ITS ---
Exam(s) XR HIP RT COMPLETE AP PELVIS EXAM: XR HIP RT COMPLETE AP PELVIS CLINICAL HISTORY: Pain with ambulation/movement; no known trauma. TECHNIQUE: 2D digital imaging was performed. COMPARISON: No exams were available for comparison FINDINGS: 3 views There is severe advanced degenerative changes in the right hip noted and unremarkable appearing opposite-left hip. No osseous lesions. Sacroiliac joints unremarkable. Degenerative facet arthropathy noted in the lower lumbar spine. 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 DATA REPOSITORY: RADIATION DOSE DELIVERED:
[2025-03-07] MEDS: Cyclobenzaprine 10 MG TAB 5 MG PO ×2 (03:18→20:27)
[2025-03-07] MEDS: Ibuprofen 200 MG TAB 400 MG PO (03:18)
[2025-03-07] MEDS: Patch Removal 1 EACH TP (06:09)
[2025-03-07 06:39] LABS: Abs Immature Grans 0.04 10^3/uL (0.0-0.06); HCT 33.3 % (36.0-46.0); HGB 10.9 g/dL (11.2-15.7); Immature Grans % 0.5 %; MCH 29.2 pg (27.0-33.0); MCHC 32.7 % (32.0-36.0); MCV 89 fL (80-95); MPV 10.0 fL (8.0-11.0); Platelet Count 164 10^3/uL (130-400); RBC 3.73 10^6/uL (3.93-5.22); RDW 14.5 % (11.7-14.6); RDW-SD 46.8 fL; WBC 7.67 10^3/uL (4.4-10.8)
[2025-03-07 06:53] LABS: Anion Gap 9.5 mmol/L (3-11); BUN 18 mg/dL (7-18); CO2 25.5 mmol/L (21.0-32.0); Calcium 8.3 mg/dL (8.5-10.1); Chloride 104 mmol/L (98-107); Estimated GFR 63.83 (mL/min/1.73m2); Glucose 95 mg/dL (74-106); Magnesium 1.7 mg/dL (1.8-2.4); Potassium 3.3 mmol/L (3.5-5.1); Sodium 139 mmol/L (136-145)
[2025-03-07 06:58] LABS: Vancomycin, Random 11.1 ug/mL
[2025-03-07 07:34] VITALS: BP 118/66; PULSE 77; RESP 18; TEMP 37.6; O2SAT 94
[2025-03-07] MEDS: Enoxaparin 40 MG/0.4 ML SYR SC (08:01)
[2025-03-07] MEDS: levoFLOXacin 500 MG, levoFLOXacin 250 MG 750 MG PO (08:02)
[2025-03-07] MEDS: Normal Saline Flush 10 ML SYR IVP ×3 (08:03→20:24)
[2025-03-07] MEDS: Acetaminophen 325 MG TAB 650 MG PO ×4 (08:03→20:23)
--- NOTE | 2025-03-07 09:43 | PDOC.CMPRO ---
Date of service: 03/07/25 Time of Service: 16:04 Care Management Progress Note Progress Note Text Progress Note Text: Angeline was lying in bed with her eyes covered by a pillow when CM met with her. It is Angeline's birthday today. She was agreeable to referrals being sent to [facility] for potential post-acute care placement. Angeline will continue to participate in PT. Per report, she is experiencing pain in her hip. She shared that while she does experience hip pain at home, the intensity has increased and was her primary reason for presenting to the ED. PT has recommended imaging and the development of a structured pain management plan. In support of these efforts, CM has requested a palliative care consult to assist with managing Angeline?s pain and to explore options for continuity of care upon discharge. Per provider, an X-ray will be done and results are pending. CM will continue to follow. Discharge Potential Discharge Needs: PCP F/U Appt Anticipated Barriers to Discharge: None Identified Patient/Family Education Needs: Review discharge instructions, discuss Ask Me Three Transportation: Private vehicle Plan: Anticipate Angeline will be discharged to a SNF prior to going home. It is recommended Angeline will follow up with her community providers and continue per her plan of care. Angeline's transport is pending PT recommendation and patient mobility at discharge. CM will continue to follow. Social Determinants of Health Screening Will the Patient Participate in the Screening?: Declined to provide Do you worry about having a steady place to live?: no
[2025-03-07] MEDS: Clotrimazole 1% 15 GM TUBE TP (10:05)
[2025-03-07] MEDS: MAGNESIUM SULFATE 1 GM/100 ML BAG IV_INF (10:31)
[2025-03-07] MEDS: Potassium Chloride 20 MEQ TABCR 40 MEQ PO (10:31)
[2025-03-07 11:57] VITALS: BP 122/76; PULSE 73; RESP 17; TEMP 36.2; O2SAT 95
[2025-03-07] MEDS: VANCOMYCIN/WATER (PEG) 1.5 GM/300 ML BAG IVPB (12:20)
[2025-03-07] MEDS: Magnesium Chloride 64 MG TABCR PO (12:41)
--- NOTE | 2025-03-07 13:43 | W.PM.PROGNOT ---
Date of Service Date of service: 03/07/25 Time of Service: 13:43 Assessment and Plan Assessment and plan (1) Community acquired bilateral lower lobe pneumonia: Status: Acute Assessment and plan: admit to med/surg Discontinue levaquin and vanco - bc + for GBS - start Cefazolin 2 gm IV q8h duoneb qid, albuterol prn mucinex I/S and acapella (2) GERD (gastroesophageal reflux disease): Status: Chronic Assessment and plan: continue PPI (3) Biliary cirrhosis: Status: Acute Assessment and plan: stable (4) Obesity: Status: Chronic Assessment and plan: nutrition consultation Lovenox BID (5) Low back pain: Status: Acute Assessment and plan: scheduled apap Ketorolac prn lidocaine patch Continue PT - premedicate discussed with Dr Portillo Exam Const General: no acute distress Orientation: alert HENMT Head: normal to inspection Ears: external ears normal General nose exam: external nose normal Mouth: moist mucous membranes Eyes General: appearance normal, both eyes and all related structures Neck Neck: normal visual inspection Resp Effort & Inspection: normal respiratory effort and able to speak in complete sentences Cardio Rate: regular rate GI Palpation: soft and nontender Back/Spine/Pelvis Back: no CVA tenderness Thoracic/Lumbar Spine: No thoracic spinal tenderness and lumbar spinal tenderness Skin General skin exam: no rashes or lesions noted Neuro General: patient alert and patient oriented x3 Extrem General: normal to inspection Psych Mental Status: mental status grossly normal Objective Last Vital Signs Temp 36.2 C L 03/07/25 11:57 Pulse 73 03/07/25 11:57 Resp 17 03/07/25 11:57 BP 122/76 03/07/25 11:57 Pulse Ox 95 03/07/25 11:57 Laboratory Results - last 24 hr 03/06/25 03/07/25 11:16 06:03 WBC 7.67 RBC 3.73 L Hgb 10.9 L Hct 33.3 L MCV 89 MCH 29.2 MCHC 32.7 RDW 14.5 Plt Count 164 MPV 10.0 Immature Gran % 0.5 Neutrophils % 78.7 Lymphocytes % 6.8 Monocytes % 13.0 Eosinophils % 0.5 Basophils % 0.5 Nucleated RBC % 0.0 Absolute Neutrophils 6.03 Absolute Lymphocytes 0.52 L Absolute Monocytes 1.00 H Absolute Eosinophils 0.04 Absolute Basophils 0.04 Sodium 139 Potassium 3.3 L Chloride 104 Carbon Dioxide 25.5 Anion Gap 9.5 BUN 18 Creatinine 0.9 Est GFR (CKD-EPI 2020) 63.83 Glucose 95 Calcium 8.3 L Magnesium 1.7 L Random Vancomycin 11.1 Urine Legionella Ag Negative PAWSS Have you Been Recently Intoxicated or Drunk Within the Last 30 days?: No Have you Ever Experienced Previous Episodes of Alcohol Withdrawal?: No Have you ever Experienced Withdrawal Seizures?: No Have you ever Experienced Delirium Tremens(DT)s?: No Have you ever undergone Alcohol Rehabilitation Treatment (i.e, inpt ot outpatient treatment programs)?: No Have you ever Experienced Blackouts?: No Have you ever Combined Alcohol with other Downers within the last 90 days?: No Have you ever Combined Alcohol with any other Substance of Abuse during the last 90 days?: No Positive Blood Alcohol level on Presentation? [PCS.BAL]: No Evidence of Increased Autonomic Activity (i.e. HR>120, tremor, sweating, agitation, nausea)?: No Result: 0 Time Spent with Patient Time Spent with Patient: 25-34 minutes Time was spent: preparing to see the patient(eg.review tests), ordering medications,tests, procedures, referring, communicating with other health assisted living care manager, indepentently interpreting results, counseling the patient and care coordination
--- NOTE | 2025-03-07 14:30 | PTTR_ITS ---
PT Notes Visit Reasons: Pneumonia, Back Pain, Cirrhosis Inpatient Physical Therapy Treatment Note [facility] Date:03/07/2025 PRECAUTIONS:standard, IV access right antecubital SUBJECTIVE:Pt reports she had a terrible night , she did not get much sleep. She states she feels she can move her legs a bit easier than yesterday, but still has pain in her right hip with all movement of the hip OBJECTIVE: ? PAIN: right hip with movement 5/10 VITALS: ?monitored by Nursing Therapeutic Activities ([id number]): Direct one-on-one instruction in dynamic activities to improve functional performance. ?? Provided skilled cues and instruction on performance and technique throughout. ? BED MOBILITY/TRANSFERS? Rolling L/R: min A B directions multiple times for repositioning and care Supine-sit: with HOB fully upright max A of 3? Sit-supine: max A of 3 ? Sit-stand: unable? Stand-sit: unable ? Bed-Chair: unable ? Chair-bed: unable - pt able to perform sit at EOB with BUE and BLE support including weight shif ting down on R/L elbow with CGA for 8 mins then began to fatigue requiring min A and resultant increase right hip pain. ASSESSMENT:? Pt progress noted with ableity to perform active ROM BLE Left >Ri ght pt continues to require assistance to flex right knee with hip in neutral but is able to perform knee flexion with right hip ER. Pt able to assist with rolling and was able to achieve sitting at the EOB this session. Pt has most pain with hip flexion and knee flexion. right knee ligamentous instability remains with crepitus with knee ROM. Pt position of pain relief is sidelying on right hip. Medical team was updated on concern for right hip pain limiting pt's functional ability. Pt is very motivated to return to her home after STR. PLAN: 1-2x/day, 7 days/week x 1 week. Plan of care has been reviewed with the FLORIST SUPPLIES SALESPERSON providing the service under Physical Therapy direction. Initiate Physical Therapy intervention for strengthening, bed mobility, transfers, gait, stairs, balance training, use of assistive device. TREATMENT CODE/TIME: 09545/ [id number] DISCHARGE RECOMMENDATION: Short term SNF
--- NOTE | 2025-03-07 14:59 | CHAPLAIN ---
Angeline was resting in bed when I visited. She had one visitor with her, possibly her son. 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 Angeline attends by [employer] on Sundays. According to Care Management notes, Angeline currently lives in [facility] with her son. I explained my role and offered support.
[2025-03-07 15:00] VITALS: BP 111/66; PULSE 78; RESP 16; TEMP 36.4; O2SAT 94
[2025-03-07] MEDS: ceFAZolin 2 GM/50 ML BAG IVPB (17:46)
[2025-03-07] MEDS: Lidocaine 5% Patch 2 PATCH TP (17:46)
[2025-03-07 20:00] VITALS: BP 123/65; PULSE 79; RESP 18; TEMP 36.8; O2SAT 94
[2025-03-08 00:17] LABS: Streptococcus Pneumoniae Ag, U Negative (Negative)
[2025-03-08] MEDS: Ketorolac 15 MG/ML VIAL IVP ×2 (00:23→16:12)
[2025-03-08] MEDS: Normal Saline Flush 10 ML SYR IVP ×7 (00:24→20:53)
[2025-03-08] MEDS: ceFAZolin 2 GM/50 ML BAG IVPB ×3 (02:02→18:12)
[2025-03-08] MEDS: Patch Removal 1 EACH TP (06:30)
--- NOTE | 2025-03-08 06:46 | OCONE_ITS ---
Date of service: 03/08/25 Time of Service: 12:00 History of Present Illness History of Present Illness Chief Complaint: Right Hip Pain Narrative: Angeline is an 80-year-old female who was admitted for pneumonia and overall malaise and weakness. She has known lumbar spine arthritis with previous issues of low back pain. She was receiving medications as well as antibiotics. She worked with physical therapy. However, she had quite significant pain in the back but particular the right hip. This pain of the right hip is described as being in the posterior aspect the hip below the sacrum and the butt. She also describes some pain about the anterior thigh extending towards the groin. This pain has been worsen when she tries to actively flex the right hip. Is also been quite problematic with weightbearing. Her blood cultures have also returned positive with group B strep, strep agalactiae. Due to the pain, an x- ray of the right hip was ordered which demonstrated severe arthritis about the right hip with deformity to the femoral head, collapse, and large cystic change. In reviewing previous notes within the system she has been seen in [facility] for most of her previous care. She also has seen orthopedist at [facility] as well as [facility] for her low back, hip, bilateral knees and bilateral feet. 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 She uses a wheelchair at baseline for any long distance mobility but can still walk short distances. While she does report having some discomfort with walking she is able to do so and short distances. However, she has been unable to here. She denies any radicular symptoms. She reports never having pain this severe. She will take ibuprofen on occasion but otherwise no chronic pain medications. She currently denies any fevers, chills, sweats. Her malaise has improved slightly but limited by pain of the right hip. 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 She presented initially to the emergency department with generalized weakness, malaise and low back pain. The right hip seems to be primarily her biggest complaint at this point. Interestingly, she does not have significant pain with internal and external rotation. Her pain is mostly with flexion. She denies any systemic complaints although does have positive blood cultures for strep agalactiae. An ultrasound aspiration of the right hip was performed but unfortunately was not successful. There is no significant effusion able to be withdrawn. However, I was able to inject the right hip. This did seem to help out some of her pain. I do not have a great explanation for her constellation of symptoms. She has multiple joint ailments. She has severe arthritis of the back, SI joint, knees, and bilateral feet and ankles with notable planovalgus deformity with talonavicular dissociation. She is not ambulating currently. Even for the past few years she is only ambulated very short distance with a walker and a forward flexed and hunched posture. While she does have deformity of the right femoral head and this could be responsible for current ongoing pain, I am reluctant to think that hip replacement is going to be a significant improvement. My greatest concern would be her recovery from the surgery. Additionally, rehabilitation from the hip replacement would be limited by her other joint ailments as well. Nevertheless, it could be considered if she does have significant improvement with this injection. She would not be a surgical candidate here for some time given her current bacteremia. Additionally, further discussion with palliative care and her primary team would have to be performed given the likely need [facility] upon discharge and the potential for long-term. Continue with PT. Weightbearing as tolerated. If no significant improvements could consider CT of the pelvis with contrast. Review of Systems All systems reviewed & are unremarkable except as noted in HPI and below PFSH All Active Problems (Updated 03/09/25 @ 16:29 by Blanca San APRN) Large hiatal hernia (Acute) On deep vein thrombosis (DVT) prophylaxis (Acute) Arthritis of right knee (Acute) Spondylosis of lumbar region without myelopathy or radiculopathy (Acute) Acquired pes planovalgus (Acute) Arthritis of right hip (Acute) Palliative care encounter (Acute) Deficit in activities of daily living (ADL) (Acute) ACP (advance care planning) (Acute) Degenerative arthritis of hip (Acute) Osteoarthritis (Chronic) Low back pain (Acute) Community acquired bilateral lower lobe pneumonia (Acute) Chills (Acute) Lung infiltrate (Acute) Lumbar back pain (Acute) Vitamin D deficiency (Acute) Senile cataract (Acute) Obesity (Chronic) GERD (gastroesophageal reflux disease) (Chronic) Biliary cirrhosis (Acute) Surgical History History of tonsillectomy History of hand surgery Left thumb tendon repair History of hysterectomy History of cholecystectomy History of appendectomy Social History Smoking/Tobacco Use Status: Former Tobacco Use Smoking risk assessment performed?: Yes Alcohol Intake: current Alcohol Intake frequency: a few times a week Alcohol type: beer, wine and hard liquor Drug use: Daily Substance use type: marijuana Housing: house Do you feel safe at home: Yes Do you feel safe in your relationship?: Yes Exam Narrative Exam Narrative: Resting in the supine position in the hospital bed. No acute distress, alert and orient x 3. In a left lateral cubitus position I examined her back. There is a notable hyperlordosis to her lumbar spine. There is no true step-off. There is some mild pain to palpation in the paraspinal region of the low lumbar spine, slightly worse on the right side. Mild pain centrally. There is some pain to palpation of the soft tissues of the right hip and buttock just distal to the sacrum and the pelvic brim. There also is some pain over the iliotibial band and the greater trochanter of the right side although palpation is challenging given the patient habitus. There is very poor muscle tone throughout the examination. In a supine position there is a notable pes planovalgus deformity of bilateral feet, worse on the left side, with exposed talar heads prominent about the medial aspect of the feet. There is some hyperemia over the prominence of the talar head on the left side but no break in the skin. No active signs of infection. Chronic venous stasis changes are seen about both lower extremities. There is a mild valgus deformity of both knees with significant crepitus of range of motion of bilateral knees, worse on the right. She does not seem to report much pain despite the audible and palpable crepitus through range of motion. Range of motion of the right knee is approximately 5 to 105 degrees. There is some laxity with varus and valgus stress, worse with valgus, however with a firm endpoint, and once again no pain. Gentle internal and external rotation of the right leg in the supine position does not seem to increase any pain. However, she is unable to flex the right hip. If I passively flex the right hip she also complains of pain within the buttock region as well as within the anterior thigh and groin. Once into a semiflexed position, approximately 60 degrees, I am able to internally and externally rotate the right hip. This does not seem to increase any pain. Results Last Vital Signs Temp 36.8 C 03/07/25 20:00 Pulse 79 03/07/25 20:00 Resp 18 03/07/25 20:00 BP 123/65 03/07/25 20:00 Pulse Ox 94 03/07/25 20:00 Labs 03/10/25 05:50 03/09/25 06:15 Labs: Laboratory Results - last 24 hr 03/06/25 03/07/25 11:16 06:03 Sodium 139 Potassium 3.3 L Chloride 104 Carbon Dioxide 25.5 Anion Gap 9.5 BUN 18 Creatinine 0.9 Est GFR (CKD-EPI 2020) 63.83 Glucose 95 Calcium 8.3 L Magnesium 1.7 L Random Vancomycin 11.1 Urine Legionella Ag Negative Imaging Imaging Studies: X-ray of the right hip shows grade 4 osteoarthritis with flattening of the femoral head, complete joint space obliteration, cystic change in a superior and lateral subluxed position. Severe arthritic changes are also seen in the lumbar spine, particular at the facet joints on this pelvic film. There also appears to be SI joint disease, worse on the right. Procedures Joint Aspiration/Injection Joint Asp./Inject. 1: Time out performed: Yes Side of body: right Additional comments: An ultrasound-guided evaluation of the right hip was performed. There is notable irregularity the proximal femur and identifying the hip joint is actually quite challenging given the irregularity. There was some bony debris seen within the joint itself. Once the appropriate anatomy was identified, the area of the skin was prepped with ChloraPrep. Using a spinal needle I then inserted the needle down to the proximal femur. In this region there seem to be a small area of the joint with some fluid. The needle was resting against bone and appear to be in appropriate position. However, is unable to aspirate any fluid. I have performed an air arthrogram which showed air within the joint space. Therefore, I proceeded with an injection consisting of 7 cc of 0.25% bupivacaine along with 40 mg of Depo-Medrol. She tolerated the procedure well. Needle was withdrawn and hemostasis was obtained. Joint Injections Hip Joint injection(s): Right Hip Indications: Arthritis Visualized Structures: Femoral Head Findings/Impressions: Verbal consent obtained, Anatomical Landmarks palpated, Injection site marked, Skin prepped with chlorhexidine, Topical Anesthetic sprayed, 7cc bupivacaine mixed with 40mg Depo-Medrol, 22 gauge needle used, Injection made without resistance and Hemostasis achieved Hip Injection Billing: Exam Complete
[2025-03-08 06:52] LABS: Abs Immature Grans 0.07 10^3/uL (0.0-0.06); HCT 31.8 % (36.0-46.0); HGB 10.7 g/dL (11.2-15.7); Immature Grans % 0.8 %; MCH 29.6 pg (27.0-33.0); MCHC 33.6 % (32.0-36.0); MCV 88 fL (80-95); MPV 10.0 fL (8.0-11.0); Platelet Count 190 10^3/uL (130-400); RBC 3.62 10^6/uL (3.93-5.22); RDW 14.3 % (11.7-14.6); RDW-SD 46.2 fL; WBC 8.56 10^3/uL (4.4-10.8)
[2025-03-08 07:16] LABS: Anion Gap 6.0 mmol/L (3-11); BUN 17 mg/dL (7-18); CO2 27.0 mmol/L (21.0-32.0); Calcium 8.5 mg/dL (8.5-10.1); Chloride 107 mmol/L (98-107); Estimated GFR 73.52 (mL/min/1.73m2); Glucose 102 mg/dL (74-106); Magnesium 2.0 mg/dL (1.8-2.4); Potassium 3.4 mmol/L (3.5-5.1); Sodium 140 mmol/L (136-145)
[2025-03-08 08:07] VITALS: BP 130/70; PULSE 72; RESP 16; TEMP 35.5; O2SAT 93
[2025-03-08] MEDS: Acetaminophen 325 MG TAB 650 MG PO ×4 (08:27→20:54)
[2025-03-08] MEDS: Enoxaparin 40 MG/0.4 ML SYR SC (08:27)
[2025-03-08] MEDS: Omeprazole 20 MG CAPCR PO (08:28)
[2025-03-08] MEDS: Potassium Chloride 20 MEQ TABCR 40 MEQ PO (10:13)
--- NOTE | 2025-03-08 10:31 | PTTR_ITS ---
PT Notes Visit Reasons: Pneumonia, Back Pain, Cirrhosis Inpatient Physical Therapy Treatment Note [facility] Date:03/07/2025 PRECAUTIONS:standard SUBJECTIVE:Pt reports she had a terrible night , and is having significantly more pain with all movement of the hip OBJECTIVE: Pt had xray of right hip showing severe osseous changes with collapse of femoral head. Pt to be seen by Ortho for further consultation and Plan of treatment? PAIN: right hip with movement 12/20 VITALS: ?monitored by Nursing Therapeutic Activities ([id number]): Direct one-on-one instruction in dynamic activities to improve functional performance. ?? Provided skilled cues and instruction on performance and technique throughout. ? BED MOBILITY/TRANSFERS? Rolling L/R: max A B directions multiple times for repositioning and care ASSESSMENT:? Pt with significantly increased pain with IR, hip flexion and abduction. Pt increased assistance for bed mobility. Pt positioned on side with use of multiple pillow to support RLE. Will await Ortho COnsult for further direction on plan to treat . PLAN: 1-2x/day, 7 days/week x 1 week. Plan of care has been reviewed with the BEHAVIORAL INTERVENTION SPECIALIST providing the service under Physical Therapy direction. Initiate Physical Therapy intervention for strengthening, bed mobility, transfers, gait, stairs, balance training, use of assistive device. TREATMENT CODE/TIME:1st session: [id number]/ [id number] 2nd Session: pt undergoing procedure by Ortho not available for PT treatment. DISCHARGE RECOMMENDATION: Short term SNF
--- NOTE | 2025-03-08 12:01 | CMPROGNOTE_ITS ---
Date of service: 03/08/25 Time of Service: 16:26 Care Management Progress Note Progress Note Text Progress Note Text: Angeline currently has a pending bed offer at [facility] which she happily accepted. Angeline states she would prefer to stay here since she is familiarized with the staff and comfortable here. Per provider, she may require 10?14 days of IV antibiotics. If no oral regimen is optional, Angeline may remain at [facility] for IV abx. Per Physical Therapy, Angeline is currently an assist of three to sit at the edge of the bed. Discharge planning will proceed once her antibiotic regimen is finalized. Had an ortho consult today, see documentation. CM will continue to fo llow and coordinate her care. Discharge Potential Discharge Needs: Imaging/labs and PCP F/U Appt Anticipated Barriers to Discharge: Medical Status Patient/Family Education Needs: Review discharge instructions, discuss Ask Me Three Transportation: RCT RCT Transportation: Wheel chair van Plan: Anticipate Angeline will be discharged to a SNF prior to going home vs swingbed; [facility] has accepted this patient. Angeline may require 10-14 days of IV abx prior to d/c. It is recommended Angeline will follow up with her community providers and continue per her plan of care. Angeline's transport recommendation per PT is EMS due to being unable to sit up, at this time. CM will continue to follow. Social Determinants of Health Screening Will the Patient Participate in the Screening?: Declined to provide Do you worry about having a steady place to live?: no
[2025-03-08] MEDS: Magnesium Chloride 64 MG TABCR PO (12:31)
--- NOTE | 2025-03-08 13:14 | PHA.REVIEW2 ---
Pharmacy Admission Review Admission Clinical Review Admission Pharmacy Review: Low back pain (Acute) Community acquired bilateral lower lobe pneumonia (Acute) Biliary cirrhosis (Acute) Penicillins Allergy (Unknown, Verified 03/05/25 12:20) Unknown scopolamine Allergy (Unknown, Verified 03/05/25 12:20) Unknown Resuscitation Status Full Code Height 5 ft 9 in Weight 112.854 kg Pharmacy Admission Review Renal Dosing Renal Dosing: BUN 17 mg/dL (7-18) 03/08/25 06:20 Creatinine 0.8 mg/dL (0.55-1.02) 03/08/25 06:20 Medications needing adjustments: Reviewed (CrCl 58.11 mL/min) List of meds needing interventions: Current medications are okay Anticoagulation Anticoagulation: Hgb 10.7 g/dL (11.2-15.7) L 03/08/25 06:20 Hct 31.8 % (36.0-46.0) L 03/08/25 06:20 Plt Count 190 10^3/uL (130-400) 03/08/25 06:20 Creatinine 0.8 mg/dL (0.55-1.02) 03/08/25 06:20 DVT Prophylaxis: Reviewed Medications: Enoxaparin (40mg daily) Opiate Usage Evaluate Pain Scale/Pains Meds: Reviewed (hydromorphone 0.5mg IVP q4h PRN - no doses given) Scheduled Bowel Reg ordered if on Opiates?: No (PRN Miralax) Relevant Labs Relevant Labs: Sodium 140 mmol/L (136-145) 03/08/25 06:20 Potassium 3.4 mmol/L (3.5-5.1) L 03/08/25 06:20 Chloride 107 mmol/L (98-107) 03/08/25 06:20 Magnesium 2.0 mg/dL (1.8-2.4) 03/08/25 06:20 Electrolytes, C-Reactive P, ESR: Reviewed (potassium 40mEq PO now one given this morning) Cardiac Review BP, HR, EF%: Reviewed (BP and HR WNL) QTc Review QTc: Reviewed (No EKG on file) IV to PO Switch IV Medications: Reviewed (cefazolin, hydromorphone and ketorolac) Home Meds Home Med List reviewed: Reviewed Relevent Home Meds Not ordered & why?: ibuprofen (PRN and has order for PRN ketorolac) Current Meds Current Medication Order Review: Intervened Comments: Changed lidocaine patch timing from 1818 to 1800 per pharmacy protocol Pharmacy Antibiotic Review Relevant Labs: WBC 8.56 10^3/uL (4.4-10.8) 03/08/25 06:20 Procalcitonin 1.49 ng/mL 03/05/25 12:00 Temperature 35.5 C Comments: Patient is on cefazolin, day 1, for pneumonia/bacteremia. Had received 2 days of levofloxacin and vancomycin before changing to cefazolin. Per provider patient will require 10-14 days of IV cefazolin for bacteremia. Inital blood cultures grew strep. agalactiae. Repeat blood cultures are pending.
--- NOTE | 2025-03-08 13:45 | W.PALLCONSUL ---
Date of service: 03/08/25 Time of Service: 12:30 History of Present Illness Narrative: Ms. Marcus is an 80 y/o F currently hospitalized 2/2 bilateral LL PNA; PMHx sig for severe OA of L hip, GERD, biliary cirrhosis, lymphedema Hospital course: presented to ED 03/05 w/CC excruciating back/hip pain; work up in ED most concerning for bilateral lower lobe PNA; admitted for management and unable to safely ambulate; given IV Dilaudid in ED w/good effect; GBS +, started on cefazolin IV q8h on 03/07, midline placed; PT consult recommends SNF w/potential need for LTP; XR of hip showed severe advanced degenerative arthritis; scheduled for ortho consult today; ketorolac today w/good effect Angeline reports she initially presented to hospital w/CC hip pain; on Thursday she was not feeling too well, w/chills and sweats intermittent, went to bed Thursday, extremely sleepy/fatigued Thursday, remained in bed all day, on Thursday went to get up, extreme/severe pain, like nothing she has never felt before. reports her pain is keeping her up at night. - reports her pain has been present for a long time, has been managing at home, not taking a lot of meds, increasing impairment overtime, she is using a WC in home more often than not. scheduled for outpatient ortho in [place], WC evaluation in [place], pursuing both directions for hip replacement vs no replacement/unable to walk. Lives at home w/son Мария and his Kaylen, she is extremely grateful for both of them. She typically only eats two meals a day, skips breakfast, this is not a new trend for her. difficult eating 2/2 having next to no teeth and reduced saliva, does best w/moist/minced foods Previously completed AD. trusts son to be HCA; would want LST, no matter what, goal ot live another 20 years. her goal w/hip right now is to fix it and get going, she would want surgery for hip if there was a 50/50 or greater shot it would work, for her, to work means to be able to walk If she were at the end of her life, she would be interested in participating in [facility] Assessment and Plan Assessment and plan (1) Community acquired bilateral lower lobe pneumonia: Status: Acute Assessment and plan: continue cefazolin q8h IV midline placed current POC for 10-14d of IV abx (2) Low back pain: Status: Acute Assessment and plan: continue ketorolac q6h IV, diluadid q4h IV PRN for both reviewed w/Angeline need for requesting pain meds if pain intolerable, otherwise not scheduled (3) Osteoarthritis: Status: Chronic Assessment and plan: see ortho note significant and multiple locations (4) Degenerative arthritis of hip: Status: Acute Assessment and plan: plan for steroid injection today as above per conversation w/ortho: likely hip replacement will not aide in her goal of regaining ability to walk d/t significant arhtritis in multiple joints, would not recommend surgery at this time given generalized weakness and muscle atrophy (5) Deficit in activities of daily living (ADL): Status: Acute Assessment and plan: now requiring assistance w/transfers, unable to ambulate d/t current pain, 3 person assist to edge of bed continue pain management (6) Palliative care encounter: Status: Acute Assessment and plan: PC will continue to follow, if remains inpatient saturday 03/10 PC may follow up - recommend outpatient f/u pending d/c location and pain management requirements Angeline may remain hospitalized for 14d of antibiotics, would recommend work w/PT 2x/d, potentially avoid SNF pending response to pain mx w/injection/medications (7) ACP (advance care planning): Status: Acute Assessment and plan: reviewed AD completed on Thursday, reflects accurately her preferences, reviewed CPR, what it involves and statistics of survival; remains full code reviewed preferences for management of hip, surgery only if 50/50% or higher of returning to walk, otherwise would not consider it worth it; reviewed pain management, need for honest assessment of pain and request for medications for appropriate management spent 20m w/ACP Review of Systems Narrative: as per HPI PFSH All Active Problems (Updated 03/08/25 @ 15:58 by Michael Arevalo MD) Arthritis of right knee (Acute) Spondylosis of lumbar region without myelopathy or radiculopathy (Acute) Acquired pes planovalgus (Acute) Arthritis of right hip (Acute) Palliative care encounter (Acute) Deficit in activities of daily living (ADL) (Acute) ACP (advance care planning) (Acute) Degenerative arthritis of hip (Acute) Osteoarthritis (Chronic) Low back pain (Acute) Community acquired bilateral lower lobe pneumonia (Acute) Chills (Acute) Lung infiltrate (Acute) Lumbar back pain (Acute) Vitamin D deficiency (Acute) Senile cataract (Acute) Obesity (Chronic) GERD (gastroesophageal reflux disease) (Chronic) Biliary cirrhosis (Acute) Surgical History History of tonsillectomy History of hand surgery Left thumb tendon repair History of hysterectomy History of cholecystectomy History of appendectomy Social History Smoking/Tobacco Use Status: Former Tobacco Use Smoking risk assessment performed?: Yes Alcohol Intake: current Alcohol Intake frequency: a few times a week Alcohol type: beer, wine and hard liquor Drug use: Daily Substance use type: marijuana Housing: house Do you feel safe at home: Yes Do you feel safe in your relationship?: Yes Exam Narrative Exam Narrative: General: frail appearing older adult female sitting in hospital bed HEENT: edentulous, eats yogurt w/no issues, MMM, hearing grossly WNL Resp: even and unlabored, speaks full sentences w/o SOB; no cough, no audible wheeze Psych: cooperative, pleasant, MS WNL, speech clear, mood/affect congruent; thought process impoverished, loose association, normal; thought content normal; insight/judgment limited Results Last Vital Signs Temp 95.9 F L 03/08/25 08:07 Pulse 72 03/08/25 08:07 Resp 16 03/08/25 08:07 BP 130/70 03/08/25 08:07 Pulse Ox 93 03/08/25 08:07 Labs 03/08/25 06:20 03/08/25 06:20 Labs: Laboratory Results - last 24 hr 03/08/25 06:20 WBC 8.56 RBC 3.62 L Hgb 10.7 L Hct 31.8 L MCV 88 MCH 29.6 MCHC 33.6 RDW 14.3 Plt Count 190 MPV 10.0 Immature Gran % 0.8 Neutrophils % 74.3 Lymphocytes % 8.9 Monocytes % 14.1 Eosinophils % 1.3 Basophils % 0.6 Nucleated RBC % 0.0 Absolute Neutrophils 6.36 Absolute Lymphocytes 0.76 L Absolute Monocytes 1.21 H Absolute Eosinophils 0.11 Absolute Basophils 0.05 Sodium 140 Potassium 3.4 L Chloride 107 Carbon Dioxide 27.0 Anion Gap 6.0 BUN 17 Creatinine 0.8 Est GFR (CKD-EPI 2020) 73.52 Glucose 102 Calcium 8.5 Magnesium 2.0 Time Spent Time Spent with Patient Time Spent(min): 70
[2025-03-08] MEDS: Cyclobenzaprine 10 MG TAB 5 MG PO ×2 (13:56→20:54)
--- NOTE | 2025-03-08 14:50 | W.PM.PROGNOT ---
Date of Service Date of service: 03/08/25 Time of Service: 14:50 Assessment and Plan Assessment and plan (1) Community acquired bilateral lower lobe pneumonia: Status: Acute Assessment and plan: continue cefazolin q8h IV current POC for 10-14d of IV abx for + BC - GBS; second BC pending Midline (2) Low back pain: Status: Acute Assessment and plan: continue ketorolac q6h IV prn - watch renal fxn. diluadid q4h IV PRN breakthrough Asked nursing to offer pain medicine - she felt her pain was not controlled, however she did not receive pain medication that was ordered prn (3) Osteoarthritis: Status: Chronic Assessment and plan: see ortho note significant and multiple locations; she has been wc bound for quite some time, months to years. (4) Degenerative arthritis of hip: Status: Acute Assessment and plan: Ortho attempted to aspirate joint and got nothing - steroid injection done by ortho; shantel well. as above hip replacement is not an option as it will not aide in her goal of regaining ability to walk and surgery is not recommended (5) Deficit in activities of daily living (ADL): Status: Acute Assessment and plan: Not ambulatory, has not been for quite sometime, 3 person assist to edge of bed continue pain management Discussed with Lindsey and Dr Arevalo Subjective Subjective Patient reports: no new complaints, tolerating liquids well, tolerating a regular diet, voiding w/o difficulty, bowel movement and afebrile; denies diarrhea, nausea or vomiting Interval history since last seen: C/A supine in bed, conversant, pleasant. Exam Const General: no acute distress Orientation: alert HENOH Head: normal to inspection Ears: external ears normal General nose exam: external nose normal Mouth: moist mucous membranes Eyes General: appearance normal, both eyes and all related structures Neck Neck: normal visual inspection Resp Effort & Inspection: normal respiratory effort and able to speak in complete sentences Cardio Rate: regular rate GI Palpation: soft and nontender Back/Spine/Pelvis Back: no CVA tenderness Thoracic/Lumbar Spine: No thoracic spinal tenderness and lumbar spinal tenderness Skin General skin exam: no rashes or lesions noted Neuro General: patient alert and patient oriented x3 Extrem General: normal to inspection Other: severe right hip pain, increased with ROM and touch; 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 Psych Mental Status: mental status grossly normal Objective Last Vital Signs Temp 35.5 C L 03/08/25 08:07 Pulse 72 03/08/25 08:07 Resp 16 03/08/25 08:07 BP 130/70 03/08/25 08:07 Pulse Ox 93 03/08/25 08:07 Laboratory Results - last 24 hr 03/06/25 03/08/25 11:16 06:20 WBC 8.56 RBC 3.62 L Hgb 10.7 L Hct 31.8 L MCV 88 MCH 29.6 MCHC 33.6 RDW 14.3 Plt Count 190 MPV 10.0 Immature Gran % 0.8 Neutrophils % 74.3 Lymphocytes % 8.9 Monocytes % 14.1 Eosinophils % 1.3 Basophils % 0.6 Nucleated RBC % 0.0 Absolute Neutrophils 6.36 Absolute Lymphocytes 0.76 L Absolute Monocytes 1.21 H Absolute Eosinophils 0.11 Absolute Basophils 0.05 Sodium 140 Potassium 3.4 L Chloride 107 Carbon Dioxide 27.0 Anion Gap 6.0 BUN 17 Creatinine 0.8 Est GFR (CKD-EPI 2020) 73.52 Glucose 102 Calcium 8.5 Magnesium 2.0 Ur Strep pneumoniae Ag Negative PAWSS Have you Been Recently Intoxicated or Drunk Within the Last 30 days?: No Have you Ever Experienced Previous Episodes of Alcohol Withdrawal?: No Have you ever Experienced Withdrawal Seizures?: No Have you ever Experienced Delirium Tremens(DT)s?: No Have you ever undergone Alcohol Rehabilitation Treatment (i.e, inpt ot outpatient treatment programs)?: No Have you ever Experienced Blackouts?: No Have you ever Combined Alcohol with other Downers within the last 90 days?: No Have you ever Combined Alcohol with any other Substance of Abuse during the last 90 days?: No Positive Blood Alcohol level on Presentation? [PCS.BAL]: No Evidence of Increased Autonomic Activity (i.e. HR>120, tremor, sweating, agitation, nausea)?: No Result: 0 Time Spent with Patient Time Spent with Patient: 25-34 minutes Time was spent: preparing to see the patient(eg.review tests), ordering medications,tests, procedures, referring, communicating with other health critical care physician assistant, indepentently interpreting results, counseling the patient and care coordination
[2025-03-08] MEDS: Bupivacaine 0.25% Pres-Free 10 ML VIAL IJ (15:29)
[2025-03-08] MEDS: methylPREDNISolone ACETATE 80 MG/ML VIAL 40 MG IJ (15:36)
[2025-03-08] MEDS: Lidocaine 5% Patch 2 PATCH TP (18:13)
[2025-03-08 18:37] VITALS: BP 131/77; PULSE 69; RESP 18; TEMP 36.3; O2SAT 93
[2025-03-09] MEDS: ceFAZolin 2 GM/50 ML BAG IVPB ×3 (02:48→17:31)
[2025-03-09] MEDS: Normal Saline Flush 10 ML SYR IVP ×4 (02:49→20:47)
[2025-03-09] MEDS: Ketorolac 15 MG/ML VIAL IVP (06:37)
[2025-03-09 06:46] LABS: Abs Immature Grans 0.14 10^3/uL (0.0-0.06); HCT 34.9 % (36.0-46.0); HGB 11.5 g/dL (11.2-15.7); MCH 29.3 pg (27.0-33.0); MCHC 33.0 % (32.0-36.0); MCV 89 fL (80-95); MPV 9.9 fL (8.0-11.0); Platelet Count 230 10^3/uL (130-400); RBC 3.92 10^6/uL (3.93-5.22); RDW 14.2 % (11.7-14.6); RDW-SD 46.1 fL; WBC 7.02 10^3/uL (4.4-10.8)
[2025-03-09] MEDS: Patch Removal 1 EACH TP (06:46)
[2025-03-09 07:04] LABS: Anion Gap 6.9 mmol/L (3-11); BUN 20 mg/dL (7-18); CO2 26.1 mmol/L (21.0-32.0); Calcium 8.8 mg/dL (8.5-10.1); Chloride 107 mmol/L (98-107); Estimated GFR 73.52 (mL/min/1.73m2); Glucose 169 mg/dL (74-106); Magnesium 2.0 mg/dL (1.8-2.4); Potassium 4.3 mmol/L (3.5-5.1); Sodium 140 mmol/L (136-145)
[2025-03-09 07:23] VITALS: BP 150/84; PULSE 57; TEMP 36; O2SAT 96
[2025-03-09 07:39] LABS: Immature Grans % 0.0 %
[2025-03-09 07:40] LABS: RBC Morphology Normal
[2025-03-09] MEDS: Acetaminophen 325 MG TAB 650 MG PO ×4 (08:38→20:46)
[2025-03-09] MEDS: Enoxaparin 40 MG/0.4 ML SYR SC (08:38)
--- NOTE | 2025-03-09 09:58 | PGE_ITS ---
Date of Service Date of service: 03/09/25 Time of Service: 09:58 Assessment and Plan Assessment and plan (1) Community acquired bilateral lower lobe pneumonia: Status: Acute Assessment and plan: As per Chest CT : bilat infiltrates in the posterior basal segment of both lower lobes, R>L and there is also a small right pleural effusion. continue cefazolin q8h IV current POC for 2 weeks of IV abx for + BC - GBS:Streptococcus agalactiae(Gp B) If outpatient infusion is an option will transition to ceftraixone 2 gm Q 24 hours 03/08/25- second BC - negative at 24 hours - end date IV antibiotics --will be 03/22/[address] (2) Large hiatal hernia: Status: Acute Assessment and plan: As per Chest CT report: - Large retrocardiac hiatal hernia w/o other mediastinal masses; questioning to a somewhat ectatic SVC -Few lymph nodes in the right infrahilar region around the right main pulmonary vein. These correspond to a small right pericardiac density on chest x-ray. Stable hemodynamically Echocardiogram results are pending - If positive for vegetation/endocarditis - IV antibiotics X 4 weeks (3) Low back pain: Status: Acute Assessment and plan: As per XR findings on 03/07/25:severe advanced degenerative changes in the right hip and degenerative facet arthropathy noted in the lower lumbar spine. Steroid infiltration completed to R hip joint by Dr. Arevalo on 03/08 with improved pain control - As per notes: If no significant improvements could consider CT of the pelvis with contrast. On IV PPI - will resume home oral PPI at d/c BMP in AM Consider scheduled celebrex asper discussion with orthopedics- will stop ketorolac q6h IV prn - Continue Dilaudid q4h IV PRN breakthrough Nursing to offer pain medicine - and will premedicate prior to PT (4) Osteoarthritis: Status: Chronic Assessment and plan: see ortho note significant and multiple locations; she has been wc bound for quite some time, months to years. (5) Degenerative arthritis of hip: Status: Acute Assessment and plan: As per XR findingson 03/07/25:severe advanced degenerative changes in the right hip and degenerative facet arthropathy noted in the lower lumbar spine. Ortho attempted to aspirate joint and got nothing - steroid injection done by ortho; shanetl well. as above hip replacement is not an option as it will not aide in her goal of regaining ability to walk and surgery is not recommended (6) Deficit in activities of daily living (ADL): Status: Acute Assessment and plan: Not ambulatory, has not been for quite sometime, 3 person assist to edge of bed continue pain management Discussed with Lindsey and Dr Arevalo (7) On deep vein thrombosis (DVT) prophylaxis: Status: Acute Assessment and plan: On LMWH Discussed with Dr. Portillo Subjective Subjective Patient reports: still having pain, pain is less, tolerating liquids well, tolerating a regular diet, voiding w/o difficulty and no bowel movement (Last BM liquid on 03/07); denies diarrhea, nausea, vomiting, shortness of breath or fever Exam Narrative Exam Narrative: 78-year-old female patient without acute distress, unlabored breathing clear lungs, S1-S2 regular heart, abdomen is nondistended soft nontender, no CVA tenderness, ankles and feet deformities with chronic dark discoloration, pulses are positive palpable to all 4 extremities Objective Last Vital Signs Temp 36.0 C L 03/09/25 07:23 Pulse 57 L 03/09/25 07:23 Resp 18 03/08/25 18:37 BP 150/84 H 03/09/25 07:23 Pulse Ox 96 03/09/25 07:23 Laboratory Results - last 24 hr 03/06/25 03/08/25 03/09/25 11:16 13:59 06:15 WBC 7.02 RBC 3.92 L Hgb 11.5 Hct 34.9 L MCV 89 MCH 29.3 MCHC 33.0 RDW 14.2 Plt Count 230 MPV 9.9 Immature Gran % 0.0 Neutrophils % 84.0 Lymphocytes % 8.0 Atypical Lymphs % 2 Monocytes % 6.0 Eosinophils % 0.0 Basophils % 0.3 Nucleated RBC % 0.0 Absolute Neutrophils 5.90 Absolute Lymphocytes 0.70 L Absolute Monocytes 0.42 Absolute Eosinophils 0.00 Absolute Basophils 0.02 RBC Morphology Normal Sodium 140 Potassium 4.3 Chloride 107 Carbon Dioxide 26.1 Anion Gap 6.9 BUN 20 H Creatinine 0.8 Est GFR (CKD-EPI 2020) 73.52 Glucose 169 H Calcium 8.8 Magnesium 2.0 Fluid Source Cancelled Fluid Color Cancelled Fluid Clarity Cancelled Fluid WBC Cancelled Fld Polynuclear WBCs % Cancelled Fluid Mononuclear Cell Cancelled Fluid Other Cells Cancelled Ur Strep pneumoniae Ag Negative Path Cons Comment Cancelled PAWSS Have you Been Recently Intoxicated or Drunk Within the Last 30 days?: No Have you Ever Experienced Previous Episodes of Alcohol Withdrawal?: No Have you ever Experienced Withdrawal Seizures?: No Have you ever Experienced Delirium Tremens(DT)s?: No Have you ever undergone Alcohol Rehabilitation Treatment (i.e, inpt ot outpatient treatment programs)?: No Have you ever Experienced Blackouts?: No Have you ever Combined Alcohol with other Downers within the last 90 days?: No Have you ever Combined Alcohol with any other Substance of Abuse during the last 90 days?: No Positive Blood Alcohol level on Presentation? [PCS.BAL]: No Evidence of Increased Autonomic Activity (i.e. HR>120, tremor, sweating, agitation, nausea)?: No Result: 0 Time Spent with Patient Time Spent with Patient: >50 minutes Time was spent: preparing to see the patient(eg.review tests), obtaining and/or reviewing separately otained hiistory, ordering medications,tests, procedures, referring, communicating with other health healthcare administration internship, indepentently interpreting results, counseling the patient and care coordination
[2025-03-09] MEDS: Pantoprazole 40 MG VIAL IVP (11:01)
[2025-03-09] MEDS: Cyclobenzaprine 10 MG TAB 5 MG PO (11:01)
[2025-03-09] MEDS: Magnesium Chloride 64 MG TABCR PO (11:01)
--- NOTE | 2025-03-09 12:12 | PTTR_ITS ---
PT Notes Visit Reasons: Pneumonia, Back Pain, Cirrhosis Inpatient Physical Therapy Treatment Note [facility] Date:03/09/2025 PRECAUTIONS:standard SUBJECTIVE: Upon this PT entering her room she stated look what I can do ( as she was able to achieve upright position without pain in her hip utilizing bed control) OBJECTIVE: pt s/p injection to right hip by Dr Arevalo on 03/08/2025.Pt presented supine in bed.? PAIN: right hip with movement /10 VITALS: ?monitored by Nursing Therapeutic Activities ([id number]): Direct one-on-one instruction in dynamic activities to improve functional performance. ?? Provided skilled cues and instruction on performance and technique throughout. ? BED MOBILITY/TRANSFERS? am session Rolling L/R: min A of 1 B directions multiple times for repositioning and care supine to sit at EOB with HOB upright : mod A of 2 scoot at EOB with min A of 2 pivot transfer toward the left with mod A of 2 and increased time and use of commode for BUE support. - pm session: scoot forward on recliner with min A of 2 sit to 3/4 stand with mod A of 2 in prep for step turn toward left with use of commode in front of her for BUE WB support. Pt able to reposition UE and LE to perform turn with CGA of 2 and increased time to allow her to move slowly. sit to semirecline with HOB elevated with mod A of 2 for trunk and RLE ASSESSMENT:? Significant improvement in level of pain allowing her to particiapte in transfers in and out of bed on this date. Pt was premedicated prior to session. She demonstrates ability to manipulate her RLE with her LLE as she did at home. Knee flexion with hip flexion she continues to require dependent assist for. Pt does not transition to the side of the bed at her home she enters and exits her bed via the bottom/foot of the bed as it is too difficult for her to get BLE off and on from the side of the bed. PLAN: 1-2x/day, 7 days/week x 1 week. Plan of care has been reviewed with the [employer] providing the service under Physical Therapy direction. Initiate Physical Therapy intervention for strengthening, bed mobility, transfers, gait, stairs, balance training, use of assistive device. TREATMENT CODE/TIME:1st session: 40999/ [id number] 2nd Session: 91652/ [id number] DISCHARGE RECOMMENDATION: Short term SNF vs HHPT if continues to progress.
--- NOTE | 2025-03-09 14:45 | DI.US_ITS ---
APPROVED REPORT EXAM: Comprehensive 2D, Doppler, and color-flow Echocardiogram Patient Location: In-Patient Room/Bed: [address] Worker: Little Peck RDCS (AE) Indications: Bacteremia Other Information Study Quality: Poor. Technically limited study due to body habitus, inability to position patient exam done supine bedside, H/O smoking. Conclusion Technically limited study Normal left ventricular wall thickness chamber size and systolic function. Ejection fraction is 55% Right ventricle not well-visualized but appears grossly normal in size Atria are not well-visualized The aortic valve is sclerotic. There is mild aortic regurgitation Normal mitral valve with mild regurgitation Normal tricuspid valve with moderate regurgitation. Estimated right ventricular systolic pressure is 40 mmHg Within the limits of the study no valvular vegetations are identified Wall motion Left Ventricle The left ventricle is normal size. The overall left ventricular systolic function appears normal. Technically limited images. Unable to position patient. There is normal left ventricular wall thickness. There is normal LV segmental wall motion. There is no ventricular septal defect visualized. LVEF is 55%. Right Ventricle Right ventricle is not well visualized. Right ventricular systolic function could not be assessed. Atria Left atrium is not well visualized. Right atrium is not well visualized. The interatrial septum is intact with no evidence for an atrial septal defect. Aortic Valve The Aortic valve is sclerotic. Number of aortic valve leaflets could not be assessed. There is no aortic valvular stenosis. Mild aortic regurgitation. Mitral Valve The mitral valve is normal in structure. No evidence of mitral valve stenosis. Mild mitral regurgitation. Tricuspid Valve The tricuspid valve is normal in structure. There is no tricuspid valve stenosis. Moderate tricuspid regurgitation. The RVSP is 39.7mmHg. Pulmonic Valve Pulmonic valve is not well visualized. There is no pulmonic valvular stenosis. Great Vessels The aortic root is normal in size. Ascending aorta is not well visualized. Aortic arch is not well visualized. IVC is normal in size and collapses >50% with inspiration. Pericardium There is no pericardial effusion. 2D Dimensions IVSD d PLAX 0.90 cm F: 0.6-1.0 Ao Root d 2.93 cm F: 2.7 - 3.3 LVPW d PLAX 0.92 cm F: 0.6 - 1.0 LVID d PLAX 5.10 cm F: 3.8 - 5.2 LVDs 3.60 cm F: 2.2 - 3.5 LV EF Teichholz 55.7 % FS 29.18 % LV EDV (Teich) 122.8 mL LV ESV (Teich) 54.4 mL Auto EF LV EDV A4C 168.5 mL LV EDV A2C 193.3 mL LV EDV BP 183.8 mL LV ESV A4C 76.6 mL LV ESV A2C 84.7 mL LV ESV BP 83.5 mL LVEF(%) A4C 54.6 % LVEF(%) A2C 56.2 % LVEF(%) BP 54.6 % LV SV A4C 92.0 ml LV SV A2C 108.6 ml LV SV BP 100.4 ml LV CO A4C 6.2 L/min LV CO A2C 7.0 L/min LV CO BP 6.6 L/min HR A4C 67.80 BPM HR A2C 64.52 BPM LV EDV Index (BP) LV Diastology MV E' medial 0.094 (>0.07 m/s) MV E Vmax 0.79 (0.4-1.3 m/s) MV E/E' MED 8.41 (<14) MV A Vmax 0.55 (0.4-1.3 m/s) MV E' lateral 0.108 (>0.1 m/s) E/A Ratio 1.4 MV E/E' LAT 7.37 (<14) MV E' Average 0.101 m/s MV E/E'(average) 7.86 Aortic Valve AoV Vmax 1.52 m/s LVOT Vmax 1.08 m/s AoV Peak Grad 9.3 mmHg LVOT Peak Grad 4.7 mmHg AoV Area (Vmax) 2.27 cm2 LVOT VTI 0.234 m AoV VTI 0.319 m LVOT Mean Grad 2.6 mmHg AoV Mean Semaj. 0.99 m/s LVOT SV 74.84 mL AoV Mean Grad 4.7 mmHg LVOT Diam s 2.00 cm AoV Area (VTI) 2.34 cm2 AV Regurg Peak Gr. 9.30 mmHg Velocity Ratio 0.71 Mitral Valve MV DT 202 (160-240 msec) MV Vmax TIPS 0.95 m/s MV Mean Grad 1.3 (<2mmHg) MV VTI 0.246 m Pulmonary Valve PV Vmax 0.97 (0.5-1.5 m/s) RVOT Vmax 0.67 m/s PV Peak Grad 3.7 mmHg RVOT Peak Gr. 1.8 mmHg PV Mean Semaj 0.69 m/s RVOT VTI 0.127 m PV Mean Grad 2.1 mmHg RVOT Mean Gr. 0.8 mmHg Tricuspid Valve RA Pressure 3.00 mmHg TR Vmax 3.03 m/s TV S' 0.14 m/s TR Peak Grad 36.7 mmHg RVSP (TR) 39.7 mmHg
--- NOTE | 2025-03-09 16:30 | W.PM.PROGNOT ---
Date of Service Date of service: 03/09/25 Time of Service: 16:30 Assessment and Plan Assessment and plan (1) Arthritis of right hip: Status: Acute Assessment and plan: Angeline had significant improvement with pain after the right hip injection. We could consider repeating injections about the right hip to help manage pain every 3 months or longer based on the results she has. While hip replacement would potentially improve her pain in a more permanent fashion given the amount of arthritis and deformity of the right hip along with the response she had with the injection, I am somewhat pessimistic that it would make a meaningful difference in her overall function. At this point she has been relegated to a wheelchair for many months and even before that she walked very minimal steps. She has significant deformity of both the and notable knee arthritis which is going to limit her ultimate functional progress. They will have to see how this injection works and also be realistic with expectation and goals in addition to risk of surgery. With her recent bacteremia I would not recommend any joint replacement until this has been fully treated. I will plan to see her in the office in 3 months. Subjective Subjective Interval history since last seen: Angeline reports to be doing much better after the injection. She was able to sit up to the edge of the bed and turn and pivot. The pain has been significantly improved about the right side. No other new symptoms. Objective Last Vital Signs Temp 36.5 C 03/09/25 23:14 Pulse 66 03/09/25 23:14 Resp 18 03/09/25 23:14 BP 134/74 03/09/25 23:14 Pulse Ox 97 03/09/25 23:14 Laboratory Results - last 24 hr 03/09/25 06:15 WBC 7.02 RBC 3.92 L Hgb 11.5 Hct 34.9 L MCV 89 MCH 29.3 MCHC 33.0 RDW 14.2 Plt Count 230 MPV 9.9 Immature Gran % 0.0 Neutrophils % 84.0 Lymphocytes % 8.0 Atypical Lymphs % 2 Monocytes % 6.0 Eosinophils % 0.0 Basophils % 0.3 Nucleated RBC % 0.0 Absolute Neutrophils 5.90 Absolute Lymphocytes 0.70 L Absolute Monocytes 0.42 Absolute Eosinophils 0.00 Absolute Basophils 0.02 RBC Morphology Normal Sodium 140 Potassium 4.3 Chloride 107 Carbon Dioxide 26.1 Anion Gap 6.9 BUN 20 H Creatinine 0.8 Est GFR (CKD-EPI 2020) 73.52 Glucose 169 H Calcium 8.8 Magnesium 2.0 PAWSS Have you Been Recently Intoxicated or Drunk Within the Last 30 days?: No Have you Ever Experienced Previous Episodes of Alcohol Withdrawal?: No Have you ever Experienced Withdrawal Seizures?: No Have you ever Experienced Delirium Tremens(DT)s?: No Have you ever undergone Alcohol Rehabilitation Treatment (i.e, inpt ot outpatient treatment programs)?: No Have you ever Experienced Blackouts?: No Have you ever Combined Alcohol with other Downers within the last 90 days?: No Have you ever Combined Alcohol with any other Substance of Abuse during the last 90 days?: No Positive Blood Alcohol level on Presentation? [PCS.BAL]: No Evidence of Increased Autonomic Activity (i.e. HR>120, tremor, sweating, agitation, nausea)?: No Result: 0 Time Spent with Patient Time Spent with Patient: <25 minutes Time was spent: preparing to see the patient(eg.review tests), obtaining and/or reviewing separately otained hiistory, referring, communicating with other health medical care manager and counseling the patient
--- NOTE | 2025-03-09 17:27 | PDOC.CMPRO ---
Date of service: 03/09/25 Time of Service: 17:27 Care Management Progress Note Progress Note Text Progress Note Text: Angeline was sitting up in the bed when CM met with her today. She was very pleasant, and very easy to talk with. She stated that she is feeling so much better since Dr. Arevalo did his magic. Angeline will require 10-14 days more of IV antibiotics for her bacteremia. She stated that she will not be able to get a ride to and from the infusion center for these treatments. She will not be able to receive IV abx at any SNF. Angeline is willling to stay at [facility] through the course of the antibiotics. Discharge Potential Discharge Needs: PCP F/U Appt Anticipated Barriers to Discharge: Medical Status Patient/Family Education Needs: Review discharge instructions, discuss Ask Me Three Transportation: RCT Plan: Angeline will need any extended course of antibiotics, and will likely need to transition to swing bed 1. Currently, she is still being worked up medically, and is not quite ready for that. Once discharged, Angeline will f/u with her PCP and community providers and continue per her plan of care. CM will continue to follow. Social Determinants of Health Screening Will the Patient Participate in the Screening?: Declined to provide Do you worry about having a steady place to live?: no
[2025-03-09] MEDS: Lidocaine 5% Patch 2 PATCH TP (17:30)
[2025-03-09] MEDS: Celecoxib 100 MG CAP PO (20:46)
[2025-03-09 20:51] VITALS: BP 146/82; PULSE 79; RESP 18; TEMP 36.2; O2SAT 96
[2025-03-09 23:14] VITALS: BP 134/74; PULSE 66; RESP 18; TEMP 36.5; O2SAT 97
[2025-03-10] MEDS: ceFAZolin 2 GM/50 ML BAG IVPB ×2 (02:34→10:44)
[2025-03-10] MEDS: Patch Removal 1 EACH TP (05:38)
[2025-03-10 06:29] LABS: Abs Immature Grans 0.27 10^3/uL (0.0-0.06); HCT 31.9 % (36.0-46.0); HGB 10.5 g/dL (11.2-15.7); Immature Grans % 3.1 %; MCH 28.8 pg (27.0-33.0); MCHC 32.9 % (32.0-36.0); MCV 87 fL (80-95); MPV 9.6 fL (8.0-11.0); Platelet Count 267 10^3/uL (130-400); RBC 3.65 10^6/uL (3.93-5.22); RDW 14.6 % (11.7-14.6); RDW-SD 47.1 fL; WBC 8.73 10^3/uL (4.4-10.8)
[2025-03-10 07:04] LABS: Anion Gap 7.8 mmol/L (3-11); BUN 27 mg/dL (7-18); CO2 25.2 mmol/L (21.0-32.0); Calcium 8.5 mg/dL (8.5-10.1); Chloride 106 mmol/L (98-107); Estimated GFR 63.83 (mL/min/1.73m2); Glucose 131 mg/dL (74-106); Potassium 4.2 mmol/L (3.5-5.1); Sodium 139 mmol/L (136-145)
[2025-03-10 07:22] VITALS: BP 124/70; PULSE 69; RESP 17; TEMP 36.7; O2SAT 95
[2025-03-10] MEDS: Pantoprazole 40 MG VIAL IVP (08:45)
[2025-03-10] MEDS: Celecoxib 100 MG CAP PO (08:45)
[2025-03-10] MEDS: Acetaminophen 325 MG TAB 650 MG PO ×2 (08:45→12:14)
[2025-03-10] MEDS: Normal Saline Flush 10 ML SYR IVP (08:46)
[2025-03-10] MEDS: Enoxaparin 40 MG/0.4 ML SYR SC (08:46)
--- NOTE | 2025-03-10 08:51 | CMPROGNOTE_ITS ---
Date of service: 03/10/25 Time of Service: 13:34 Care Management Progress Note Progress Note Text Progress Note Text: Angeline was lying down in bed and awake when CM met with her. Per PT, she is making significant progress and Angeline states she is feeling less pain in her hip. Angeline will require 10 - 14 days of IV abx and will be transitioned to swingbed 1 today for prolonged IV antibiotics, and strengthing by working with PT. Patient is agreeable to this plan. CM will continue to follow. Discharge Potential Discharge Needs: PCP F/U Appt, Surgical F/U Appt and Other (SB 1) Anticipated Barriers to Discharge: Medical Status Patient/Family Education Needs: Review discharge instructions, discuss Ask Me Three Plan: Angeline will need any extended course of antibiotics, and will likely need to transition to swing bed 1. Currently, she is still being worked up medically. Once discharged, Angeline community providers and continue per her plan of care. Angeline's transport recommendation will be dependant upon her mobility at time of discharged. She likely will be referred to services of PT/OT/REMEDIAL READING TEACHER at discharge. CM will continue to follow. Social Determinants of Health Screening Will the Patient Participate in the Screening?: Declined to provide Do you worry about having a steady place to live?: no
[2025-03-10] MEDS: HYDROmorphone 2 MG/ML SYR 0.5 MG IVP (09:44)
--- NOTE | 2025-03-10 11:54 | PTTR_ITS ---
PT Notes Visit Reasons: Pneumonia, Back Pain, Cirrhosis Inpatient Physical Therapy Treatment Note [facility] Date:03/10/2025 PRECAUTIONS:standard SUBJECTIVE: Pt eports her hip still feels good and the patches to her back are really helping alot as well as the IV pain meds. OBJECTIVE: pt s/p injection to right hip by Dr Arevalo on 03/08/2025.Pt presented supine in bed.? PAIN: right hip with movement / VITALS: ?monitored by Nursing Therapeutic Activities ([id number]): Direct one-on-one instruction in dynamic activities to improve functional performance. ?? Provided skilled cues and instruction on performance and technique throughout. ? BED MOBILITY/TRANSFERS? am session ( pt will provide full instructions on how to set up for transfer including placement of commode which she uses for BUE support) Rolling L/R: min A of 1 B directions multiple times for repositioning and care supine to sit at EOB with HOB upright : min A of 1 to scoot forward to get feet onto floor scoot at EOB with min A of 1 pivot transfer toward the right with CGA and increased time and use of commode for BUE support. ASSESSMENT:? Pt continues to report (+) effect from injection enabling her to progress to stand step turn transfers with 1 assist and stand by of 1. Pt was able to perform transition to EOB with min A and HOB fully upright. Pt with poor footwear although this is all that will accomodate her pes valgus deformities. Pt does not transition to the side of the bed at her home she enters and exits her bed via the bottom/foot of the bed as it is too difficult for her to get BLE off and on from the side of the bed. PLAN: 1-2x/day, 7 days/week x 1 week. Plan of care has been reviewed with the NURSING ADMIN providing the service under Physical Therapy direction. Initiate Physical Therapy intervention for strengthening, bed mobility, transfers, gait, stairs, balance training, use of assistive device. TREATMENT CODE/TIME:1st session: [id number]/ [id number] DISCHARGE RECOMMENDATION: Short term SNF vs HHPT if continues to progress.
[2025-03-10] MEDS: Magnesium Chloride 64 MG TABCR PO (12:15)
--- NOTE | 2025-03-10 13:23 | CM.SWINGPC ---
Date of service: 03/10/25 Time of Service: 13:31 Swingbed Plan of Care Activites/Discharge Plan of care: SWING BED PROGRAM ACTIVITIES/DISCHARGE PLAN OF CARE ACTIVITIES PLAN Date: 03/10/25 Identified Need: individual needs/life enrichment during prolonged hospital stay. Intervention/Plan: TV in room, offer activity cart, reiki, pet and music therapy. Initials: AB DISCHARGE PLAN Date: 03/24/25 Identified Need: Safe discharge plan Intervention/Plan: Angeline will be discharged home with new PT/OT/TONE CABINET ASSEMBLER, once PT goals are met and IV antibiotic course completed. Initials: AB
--- NOTE | 2025-03-10 13:45 | W.PM.DS.N ---
Date of service: 03/10/25 Time of Service: 17:34 DS: Diagnosis Discharge Diagnosis (1) Arthritis of right hip: Status: Acute Discharge Plan Disposition Patient Disposition: Swing Bed(Skilled,SB1) Condition: Stable Discharge Details Reason For Visit: Pneumonia, Back Pain, Cirrhosis Admit Date/Time: 03/05/25 17:00 Admit Provider: Pio Martinez Attending Provider: Pio Martinez Primary Care Provider: Rambo Rg Hospital Course Hospital Course: This is a morbidly obese female with past medical history significant for osteoarthritis degenerative arthritis, cirrhosis, GERD, back pain who presented to the emergency department with complaints of general malaise back pain exacerbation. Workup in the emergency department was most concerning for bilateral lobe pneumonia she was unable to be safely really ambulated so admitted under hospitalist service. She was treated with antibiotics. Blood cultures did grow positive for group B strep. Plan is for cefazolin for a 2-week course. Second set of blood cultures on March 08 was negative to date. If this remains negative her course of antibiotics will complete on March 22, 2025. She does have a midline in place. Hospital course was also complicated with right hip pain. she has been working with physical therapy but was complaining of significant pain in the back but worse in the right hip. Orthopedics was consulted and she did receive an injection in her right hip with significant improvement in her symptoms. She also has significant deformity of both of her ankles with notable knee arthritis which will also hinder her rehabilitation. It is thought that she will be realistically reliant on wheelchair for mobility. Plan is for discharge to swing level status to continue working with physical therapy and to complete her course of IV antibiotics. She has remained medically stable. She has been weaned off oxygen. She is eating and drinking and bowels and bladder functioning. Pain has been managed on scheduled Tylenol and Celebrex. She can use Dilaudid for breakthrough pain which she has rarely needed. Plan will be for her to be discharged to skilled level rehabilitation after she has completed her IV antibiotics Discharged discussed with Dr. Sommer [place] Meds and New Rx's Prescriptions: No Action clotrimazole 1 % cream 1 applic topical BID cyclobenzaprine 5 mg tablet 5 mg PO TID PRN omeprazole 20 mg capsule,delayed release(DR/EC) 20 mg PO DAILY ursodiol 500 mg tablet 500 mg PO .COMPLEX Rx Instructions: 500 mg orally q am and 1000mg q pm; Discharge Instructions Activity:: Activity as Tolerated Equipment/Supplies:: No Equipment Needed Diet:: As Tolerated Discharge Orders Discharge Orders: Discharge Order (Routine); Ordered 03/10/25 Ordered By: Joan Larkin Discharge Data Discharge Date/Time-TO BE ENTERED AT DEPARTURE: 03/10/25 14:38 DS: Summary Time Spent with Patient providing and/or coordinating discharge services: Greater than 30 minutes Status at Discharge Functional status at discharge: wheelchair bound Overall status at discharge: patient is not back to baseline Mental Status: mental status grossly normal Speech and Movement: speech and movement normal Mood: congruent mood Affect: normal affect Exam Narrative Exam Narrative: Morbidly obese female no acute distress head is atraumatic eyes nonicteric noninjected oral dentition poor most missing teeth respirations even and unlabored abdomen round soft obese nontender cardiovascular regular rate and rhythm bilateral lower extremities with severe deformity at the ankles positive edema at baseline chronic discoloration consistent with venous stasis dermatitis Psych Mental Status: mental status grossly normal Speech and Movement: speech and movement normal Mood: congruent mood Affect: normal affect DS: Data Vitals/I&O Vitals and I&O: Vital Signs Temperature 36.7 C 03/10/25 07:22 Temperature Source Temporal Artery Scan 03/10/25 07:22 Pulse 69 03/10/25 07:22 Pulse Rhythm Regular 03/05/25 18:29 Pulse 74 03/05/25 17:40 Respiratory Rate 17 03/10/25 07:22 Respiratory Effort Normal 03/05/25 18:29 Respiratory Depth Normal 03/05/25 18:29 Respiratory Pattern Normal 03/05/25 18:29 Blood Pressure 124/70 03/10/25 07:22 Blood Pressure Mean 88 03/10/25 07:22 Pulse Oximetry 95 03/10/25 07:22 Oxygen Delivery Method Room Air 03/10/25 07:22 Oxygen Flow Rate 0 03/10/25 07:22 Pain Level 0 03/10/25 07:22 Intake & Output 03/09/25 03/10/25 03/10/25 23:59 11:59 23:59 Intake Total 50 / 210 50 / 50 Output Total 700 / 1100 1000 / 1000 Balance -650 / -890 -950 / -950 Intake: IV 50 / 210 50 / 50 Output: Urine 700 / 1100 1000 / 1000 Other: Urine Color Yellow Yellow Urine Appearance Clear Cloudy Urine Odor Normal None Data Completed and Pending Labs on day of discharge: Labs from last 24 hours 03/10/25 05:50 WBC 8.73 RBC 3.65 L Hgb 10.5 L Hct 31.9 L MCV 87 MCH 28.8 MCHC 32.9 RDW 14.6 Plt Count 267 MPV 9.6 Immature Gran % 3.1 Neutrophils % 72.7 Lymphocytes % 12.6 Monocytes % 11.0 Eosinophils % 0.3 Basophils % 0.3 Nucleated RBC % 0.0 Absolute Neutrophils 6.34 Absolute Lymphocytes 1.10 L Absolute Monocytes 0.96 H Absolute Eosinophils 0.03 Absolute Basophils 0.03 Sodium 139 Potassium 4.2 Chloride 106 Carbon Dioxide 25.2 Anion Gap 7.8 BUN 27 H Creatinine 0.9 Est GFR (CKD-EPI 2020) 63.83 Glucose 131 H Calcium 8.5 03/10/25 11:00 Sputum - Expectorated Sputum Culture - Pending 03/10/25 11:00 Sputum - Expectorated Gram Stain - Pending 03/09/25 09:58 Sputum Sputum Culture - Pending 03/09/25 09:58 Sputum Gram Stain - Pending Preliminary micro results at discharge 03/10/25 11:00 Sputum - Expectorated Sputum Culture - Pending 03/10/25 11:00 Sputum - Expectorated Gram Stain - Pending 03/09/25 09:58 Sputum Sputum Culture - Pending 03/09/25 09:58 Sputum Gram Stain - Pending 03/08/25 12:48 Blood Blood Culture - Preliminary NO GROWTH 24 HOURS 03/08/25 12:40 Blood Blood Culture - Preliminary NO GROWTH 24 HOURS PFSH All Active Problems (Updated 03/10/25 @ 14:23 by Joan Larkin NP) Bacteremia (Acute) Large hiatal hernia (Acute) On deep vein thrombosis (DVT) prophylaxis (Acute) Arthritis of right knee (Acute) Spondylosis of lumbar region without myelopathy or radiculopathy (Acute) Acquired pes planovalgus (Acute) Arthritis of right hip (Acute) Palliative care encounter (Acute) Deficit in activities of daily living (ADL) (Acute) ACP (advance care planning) (Acute) Degenerative arthritis of hip (Acute) Osteoarthritis (Chronic) Low back pain (Acute) Community acquired bilateral lower lobe pneumonia (Acute) Chills (Acute) Lung infiltrate (Acute) Lumbar back pain (Acute) Vitamin D deficiency (Acute) Senile cataract (Acute) Obesity (Chronic) GERD (gastroesophageal reflux disease) (Chronic) Biliary cirrhosis (Acute) Surgical History History of tonsillectomy History of hand surgery Left thumb tendon repair History of hysterectomy History of cholecystectomy History of appendectomy Social History Smoking/Tobacco Use Status: Former Tobacco Use Smoking risk assessment performed?: Yes Alcohol Intake: current Alcohol Intake frequency: a few times a week Alcohol type: beer, wine and hard liquor Drug use: Daily Substance use type: marijuana Housing: house Do you feel safe at home: Yes Do you feel safe in your relationship?: Yes Time Spent with Patient Time Spent with Patient: 70-84 minutes4 Time was spent: preparing to see the patient(eg.review tests), obtaining and/or reviewing separately otained hiistory, ordering medications,tests, procedures, indepentently interpreting results, counseling the patient and care coordination
== END 2025-03-10 14:38 | disposition swing bed (61) | DRG 195 ==
LOC: ER 17:14 → MS 17:52
PROVIDERS: Nurse Practitioner Acute Care; Nurse Practitioner Family; Admitting Provider Family Medicine; Emergency Provider Emergency Medicine; PCP Registered Nurse; Responsible Provider Nurse Practitioner Acute Care; Visit Provider Family Medicine
DX: J18.9 Pneumonia, unspecified organism (principal); K74.5 Biliary cirrhosis, unspecified; K21.9 Gastro-esophageal reflux disease without esophagitis; M47.816 Spondylosis without myelopathy or radiculopathy, lumbar region; K44.9 Diaphragmatic hernia without obstruction or gangrene; Z79.899 Other long term (current) drug therapy; R53.1 Weakness; E55.9 Vitamin D deficiency, unspecified; Z87.891 Personal history of nicotine dependence; M21.072 Valgus deformity, not elsewhere classified, left ankle; M21.071 Valgus deformity, not elsewhere classified, right ankle; M15.9 Polyosteoarthritis, unspecified; Z73.89 Other problems related to life management difficulty; Z74.09 Other reduced mobility; E66.01 Morbid (severe) obesity due to excess calories; Z68.36 Body mass index [BMI] 36.0-36.9, adult
CPT/HCPCS: 36410; 20610; 00123; 36415; 80048; 80053; 82805; 84145; 87040; 87077; 87449; 87637; 93306; 96365; 96375; 97140; 97162; 97530; 99222; 99285; J1650; 71046; 71260; 73502; 74176; 80202; 81003; 81015; 83605; 83735; 84439; 84443; 85025; 87070; 87205; 87899; 89051; 94640; 94760; 99231; 99232; 99233; 99239; J0665; J0690; J1010; J1171; J1885; J1956; J2470; J3373; J3475; J3490; J7620

== ENCOUNTER 2025-03-10 14:20 | Inpatient (IN) | payer MEDICARE, SELFPAY ==
--- NOTE | 2025-03-10 14:22 | W.PM.HP.N ---
Date of service: 03/10/25 Time of Service: 14:22 Assessment and Plan Assessment and plan (1) Bacteremia: Status: Acute Assessment and plan: continue cefazolin for positive blood cultures 03/05/25 growning group B strep negative blood cultures to date from 03/08/25 will complete 2 weeks on March 22, 2025. echo shows no evidence of vegetation to complete 14 days of IV antibiotics. (2) Large hiatal hernia: Status: Acute Assessment and plan: Chest CT report: - Large retrocardiac hiatal hernia w/o other mediastinal masses; questioning to a somewhat ectatic SVC -Few lymph nodes in the right infrahilar region around the right main pulmonary vein. These correspond to a small right pericardiac density on chest x-ray. (3) Low back pain: Status: Acute Assessment and plan: As per XR findings on 03/07/25:severe advanced degenerative changes in the right hip and degenerative facet arthropathy noted in the lower lumbar spine. Steroid infiltration completed to R hip joint by Dr. Arevalo on 03/08 with improved pain control - As per notes: If no significant improvements could consider CT of the pelvis with contrast. Continue scheduled apap and celebrex Continue Dilaudid q4h IV PRN breakthrough Nursing to offer pain medicine - and will premedicate prior to PT (4) Osteoarthritis: Status: Chronic Assessment and plan: see ortho note significant and multiple locations; she has been wc bound for quite some time, months to years. (5) Degenerative arthritis of hip: Status: Acute Assessment and plan: As per XR findingson 03/07/25:severe advanced degenerative changes in the right hip and degenerative facet arthropathy noted in the lower lumbar spine. Ortho attempted to aspirate joint and got nothing - steroid injection done by ortho; shantel well. as above hip replacement is not an option as it will not aide in her goal of regaining ability to walk and surgery is not recommended (6) Deficit in activities of daily living (ADL): Status: Acute Assessment and plan: Not ambulatory, has not been for quite sometime, 3 person assist to edge of bed continue pain management (7) On deep vein thrombosis (DVT) prophylaxis: Status: Acute Assessment and plan: On LMWH Discussed with Dr. Portillo History of Present Illness Narrative: This is a morbidly obese female with past medical history significant for osteoarthritis degenerative arthritis, cirrhosis, GERD, back pain who presented to the emergency department with complaints of general malaise back pain exacerbation. Workup in the emergency department was most concerning for bilateral lobe pneumonia she was unable to be safely really ambulated so admitted under hospitalist service. She was treated with antibiotics. Blood cultures did grow positive for group B strep. Plan is for cefazolin for a 2-week course. Second set of blood cultures on March 08 was negative to date. If this remains negative her course of antibiotics will complete on March 22, 2025. She does have a midline in place. Hospital course was also complicated with right hip pain. she has been working with physical therapy but was complaining of significant pain in the back but worse in the right hip. Orthopedics was consulted and she did receive an injection in her right hip with significant improvement in her symptoms. She also has significant deformity of both of her ankles with notable knee arthritis which will also hinder her rehabilitation. It is thought that she will be realistically reliant on wheelchair for mobility. Plan is for discharge to swing level status to continue working with physical therapy and to complete her course of IV antibiotics. She has remained medically stable. She has been weaned off oxygen. She is eating and drinking and bowels and bladder functioning. Pain has been managed on scheduled Tylenol and Celebrex. She can use Dilaudid for breakthrough pain which she has rarely needed. She is being admitted to skilled level rehabilitation after she has completed her IV antibiotics Review of Systems All systems reviewed & are unremarkable except as noted in HPI and below PFSH All Active Problems (Updated 03/10/25 @ 14:23 by Joan Larkin NP) Bacteremia (Acute) Large hiatal hernia (Acute) On deep vein thrombosis (DVT) prophylaxis (Acute) Arthritis of right knee (Acute) Spondylosis of lumbar region without myelopathy or radiculopathy (Acute) Acquired pes planovalgus (Acute) Arthritis of right hip (Acute) Palliative care encounter (Acute) Deficit in activities of daily living (ADL) (Acute) ACP (advance care planning) (Acute) Degenerative arthritis of hip (Acute) Osteoarthritis (Chronic) Low back pain (Acute) Community acquired bilateral lower lobe pneumonia (Acute) Chills (Acute) Lung infiltrate (Acute) Lumbar back pain (Acute) Vitamin D deficiency (Acute) Senile cataract (Acute) Obesity (Chronic) GERD (gastroesophageal reflux disease) (Chronic) Biliary cirrhosis (Acute) Surgical History History of tonsillectomy History of hand surgery Left thumb tendon repair History of hysterectomy History of cholecystectomy History of appendectomy Social History Smoking/Tobacco Use Status: Former Tobacco Use Smoking risk assessment performed?: Yes Alcohol Intake: current Alcohol Intake frequency: a few times a week Alcohol type: beer, wine and hard liquor Drug use: Daily Substance use type: marijuana Housing: house Do you feel safe at home: Yes Do you feel safe in your relationship?: Yes Meds Allergies and Home Medications Allergies Allergy/AdvReac Type Severity Reaction Status Date / Time Penicillins Allergy Unknown Unknown Verified 03/05/25 12:20 scopolamine Allergy Unknown Unknown Verified 03/05/25 12:20 Home Medications ?Medication ?Instructions ?Recorded ?Confirmed ?Type clotrimazole 1 % topical cream 1 applic topical BID 01/04/25 03/10/25 History cyclobenzaprine 5 mg tablet 5 mg PO TID PRN 01/04/25 03/10/25 History omeprazole 20 mg capsule,delayed 20 mg PO DAILY 01/04/25 03/10/25 History release ursodiol 500 mg tablet 500 mg PO .COMPLEX 01/04/25 03/10/25 History Exam Narrative Exam Narrative: Morbidly obese female no acute distress head is atraumatic eyes nonicteric noninjected oral dentition poor most missing teeth respirations even and unlabored abdomen round soft obese nontender cardiovascular regular rate and rhythm bilateral lower extremities with severe deformity at the ankles positive edema at baseline chronic discoloration consistent with venous stasis dermatitis Time Spent Time spent with Patient: 55-74 minutes Time was spent: preparing to see the patient(eg.review tests), obtaining and/or reviewing separately otained hiistory, ordering medications,tests, procedures, indepentently interpreting results and counseling the patient
--- NOTE | 2025-03-10 14:57 | W.PC.ACHO ---
Registration Status: ADM IN Primary Language: Preferred Language: (Last Reviewed 03/08/25 @ 06:50 by Michael Arevalo MD) History of tonsillectomy History of hand surgery History of hysterectomy History of cholecystectomy History of appendectomy Allergies Penicillins Allergy (Unknown, Verified 03/05/25 12:20) Unknown scopolamine Allergy (Unknown, Verified 03/05/25 12:20) Unknown Diet Orders Category Date Time Status Regular/Normal [DIET] Nutrition 03/10/25 Dinner Active 03/10/25 14:19 Sputum Culture - Pending Sputum Gram Stain - Pending Problems (Last Reviewed 03/08/25 @ 06:50 by Michael Arevalo MD) Bacteremia (Acute) Large hiatal hernia (Acute) On deep vein thrombosis (DVT) prophylaxis (Acute) Deficit in activities of daily living (ADL) (Acute) Degenerative arthritis of hip (Acute) Osteoarthritis (Chronic) Low back pain (Acute) v v v v v v v v v Sending and/or Receiving Nurses: Please use comment section below to note any information pertinent to the patient hand-off not included above. Information / Comments: This nurse received orders to switch patient to swing bed for better management, patient keeps same room number. Report received from:
--- NOTE | 2025-03-10 15:03 | CM.SBPSYCH ---
Date of service: 03/10/25 Time of Service: 15:03 SB Psychosocial/Act. Assme Hospital Admission Admission Date: 03/10/25 Admission From:: [facility] Diagnosis:: Pneumonia, back pain, cirrhosis Swing Bed Admission Swing Bed Admit Date:: 03/10/25 Swing Bed Level of Care: Level 1/SNF Social Supports PREVIOUS FUNCTIONAL STATUS/SOCIAL/FAMILY SUPPORTS:: Aureeloise Prior to Admission Living Arrangements/Environment Prior to Admission:: Lives in her sons home in [facility] Education Highest Grade Completed:: Masters Degree Where did you attend School:: [employer] Special Education/Training:: Non-violent communication Work History 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 DRB board Interests Music:: yes TV/Movies:: yes Gardening:: yes Reading:: yes Present Functional Status Physical Abilities:: Patient presents with pain in the right hip, particularly with movement, which limits functional mobility. Currently requires assistance of two persons for transfers. Able to sit upright with support, demonstrating improved tolerance to upright positioning. Still limited in initiating or completing functional mobility tasks. Ongoing physical therapy and pain management are recommended to improve mobility, transfer ability, and overall functional independence. Cognitive:: Patient is alert and oriented to person, place, time, and situation. Demonstrates normal memory, attention, and judgment. No cognitive deficits noted; able to follow commands and participate in care. Communication:: Patient demonstrates clear and effective communication. Speech is coherent and appropriate. Able to express needs and follow verbal instructions without difficulty. Sensory Systems: Patient demonstrates intact vision, hearing, and sensation. No deficits noted in response to verbal cues, tactile stimuli, or visual input during assessment. Behavior:: Patient demonstrates appropriate behavior and affect. Cooperative with care, engages appropriately with staff, and exhibits no signs of agitation or behavioral concerns. Admission Data Reason for Swing Bed Admission:: IV antibiotic course, and continue with strength training for PT Discharge Plan:: Anticipate Angeline will be discharged back to her sons home possibly with new PT, OT, and HEART SPECIALIST. It will be recommended that Angeline follow up with her community providers, services, palliative care, and discharge plan of care. Her transportation will be dependent on mobility at time of discharge. CM will continue to follow. Assessment: Pleasant female patient with intact cognitive and communication abilities. Alert and oriented ?4, follows commands, and communicates needs clearly. Demonstrates appropriate behavior and affect; cooperative and engaged during care. Sensory systems are intact, with no noted deficits in vision, hearing, or sensation. Currently experiences right hip pain with movement and requires maximum assistance (?2) for transfers. Able to sit upright with support and is participating in ongoing rehabilitation. Patient continues to show meaningful effort to improve and get stronger, and she consistently expresses a clear desire to return home. Yield Loss Inspector: Lani Baron Date Assessment was completed:: 03/10/25
[2025-03-10] MEDS: Acetaminophen 325 MG TAB 650 MG PO ×2 (15:28→21:03)
--- NOTE | 2025-03-10 16:09 | PT.INTREAT ---
PT Notes Visit Reasons: Bacteemia Date: 03/10/2025 PRECAUTIONS: Fall, standard, Activity as tolerated. SUBJECTIVE: Pt in recliner resting when approached for therapy this afternoon, agreed to participating with therapy session OBJECTIVE: + pes valgus deformities? PAIN: 2/10 at rest, 8/10 standing up VITALS: monitored by nursing Therapeutic Activities 69163: Direct one-on-one instruction in dynamic activities to improve functional performance. ?? BED MOBILITY/TRANSFERS? Sit-stand: Max A from recliner? Stand-sit: ?CGA? Chair to commode:?Max A ? Commode to Chair: Max A Provided skilled cues and instruction on performance and technique throughout. ASSESSMENT:?Pt able to scoot backward in recliner min A, reports feeling weaker since it is late in the afternoon, pt felt relief with TPR on the lumbar paraspinals/quadratus lumborum followed by lateral trunk rotation with side bending. pt stayed in recliner after using commode and stand pivot transfer PLAN: Continue with balance training, global strengthening and general conditioning for improved safety, mobility and activity tolerance until pt is ready for DC. TREATMENT CODE/TIME: [id number], [id number] 30mins (2:00-2:38pm)
[2025-03-10] MEDS: ceFAZolin 2 GM/50 ML BAG IVPB (17:54)
[2025-03-10] MEDS: Lidocaine 5% Patch 2 PATCH TP ×2 (17:57→20:17)
[2025-03-10 19:34] VITALS: BP 112/69; PULSE 63; RESP 18; TEMP 36.6; O2SAT 95
[2025-03-10] MEDS: Celecoxib 100 MG CAP PO (21:03)
[2025-03-10] MEDS: Normal Saline Flush 10 ML SYR IVP (21:04)
[2025-03-11] MEDS: ceFAZolin 2 GM/50 ML BAG IVPB ×3 (01:56→17:14)
[2025-03-11 08:39] VITALS: BP 149/82; PULSE 63; RESP 16; TEMP 35.9; O2SAT 98
[2025-03-11] MEDS: Acetaminophen 325 MG TAB 650 MG PO ×4 (09:17→21:28)
[2025-03-11] MEDS: Enoxaparin 40 MG/0.4 ML SYR SC (09:18)
[2025-03-11] MEDS: Celecoxib 100 MG CAP PO ×2 (09:18→21:28)
[2025-03-11] MEDS: Omeprazole 20 MG CAPCR PO (09:18)
[2025-03-11] MEDS: Normal Saline Flush 10 ML SYR IVP ×2 (09:19→21:27)
--- NOTE | 2025-03-11 10:04 | IN_ITS ---
PT Notes Visit Reasons: Bacteemia Physical Therapy Swing Bed level 1 Initial Evaluation Date: 03/10/2025 Referring Doctor: Joan Larkin NP PT Orders: PT CONSULT: PT evaluation and treatment Precautions: Wheelchair-bound. Stand pivot transfer only. Activity as tolerated. May use STEDY back to bed if for safety. Patient Profile/Admitting Diagnosis: Angeline converted to swing bed level I of care as of 03/10/2025 for continued management and rehabilitation. She is an 80-year-old female who presented to the ED on 03/05/25 with general body malaise and severe right hip/low back pain 2 days prior. Patient was admitted for management of B LL PNA as well as L4-L5 severe central canal stenosis. Patient has been placed on cefazolin as of 03/05/25 for growing group B streptococcus, tested negative for it as of 03/08/25 with plan to continue abx treatment until 03/22/2025. Patient also with large retrocardiac hiatal herna, and severe DJD of the R hip as well as facet arthropathy of the lower lumbar spine per most recent radiographs. She received steroid injection through the R hip by Dr Arevalo on 03/08/25 with good relief from pain since. Patient is now being followed by PT services for continued functional mobilty training in order to increase safety and independence of stand pivot transfers. PMHX: Surgical History (Updated 01/04/25 @ 11:24 by Sergio Woodall RN) Low back pain (Acute) Community acquired bilateral lower lobe pneumonia (Acute) Chills (Acute) Lung infiltrate (Acute) Lumbar back pain (Acute) Vitamin D deficiency (Acute) Senile cataract (Acute) Obesity (Chronic) GERD (gastroesophageal reflux disease) (Chronic) Biliary cirrhosis (Acute) Surgical History (Updated 01/04/25 @ 11:24 by Sergio Woodall RN) History of tonsillectomy History of hand surgery Left thumb tendon repair History of hysterectomy History of cholecystectomy History of appendectomy Social History/Home Situation: Resides with son's family in a private home. Wheelchair-bound and non-ambulatory for over 2 years now, only able to stand using pivot transfer. Space at home has been specifically arranged to allow her to scoot down at the foot of her bed and to stand pivot onto wheelchair using pivot technique while holding onto said commode. Son and [id number] have been very supportive. Main mode of mobility inside house has been the wheelcahir. Equipment Owned/DME: w/c, bedside commode, raised toilet seat, grab bar near the toilet, walker Subjective: Wanted to simulate home environment arrangement and perform transfer as close to how it is at home. Had a challenging time scooting down onto foot of bed due to mattress quality, patient's high BMI, continued weakness, and low back pain. Patient was anxious but was able to complete task with support from PT and from ELEAZAR Younger. Added that wheelchair at home does not fit her and will need reassessment of fit from PT. Objective: General Observation: Patient with high BMI resting in bed in semi-hernandez's in bed. B hip in ER with R more than L. B ankle with charcot deformities. H emosiderring staining to B legs from venous insufficiency. Mental Status: A and O x 4 Pain: 4-5/10 while transferrring ROM: Right Upper Extremity: WNL Left Upper Extremity: WNL Right Lower Extremity: Hip flexion allowed up to 70 degrees. Hip abduction about 10 degrees. Knee flexion about 90 degrees. Ankle DF to neutral. Left Lower Extremity: Hip flexion allowed up to 90 degrees, hip abduction about 15 degrees. Hip ER to about 45 degrees. Knee up to about 100 degrees. Ankle DF to neutral only. Strength: Right Upper Extremity: 4/5 Left Upper Extremity: 4/5 Right Lower Extremity: Hip flexion: 2- /5. Hip abduction 2- /5. Hip extension: 2-/5. Knee extension 2-/5. knee flexion 3- /5. Ankle DF: 3-/5. Ankle DF 3-/5. Left Lower Extremity: Hip flexion 3- /5. Hip abduction 3- /5. Hip ER 3-/5. Hip extension 3-/5. Knee extension 3-/5. Knee flexion 3- /5. Ankle DF 3-/5. Ankle PF 3-/5. Sensation: Intact to pain and light touch in B LE Bed Mobility/Transfers: Provided minimal verbal cueing to make use of the HOB adjustments as well as the bed rails as needed to move in bed Rolling to right with rail CGA with increase time to move LE Supine to sit stand by assist midway through the task but needed intermittent hand-held assist to minimal assist so she could pull on PT's and ELEAZAR Younger's hands interchangeably to scoot to the foot of the bed safely Sit to stand not able to attempt at this time Stand to sit not able to attempt at this time Sit to squat contact guard assist with B hands holding onto bedside commode handles Bed to wheelchair minimal assist of 2 with stand pivot while holding onto bedside commode handles for support and stability Sit to stand from wheelchair moderate assist of 2 while pulling from horizontal and vertical grab bars Wheelchair to toilet seat moderate assist of 2 while pulling from horizontal and vertical grab bars Toilet seat to edge of bed STEDY lift of 2 as patient was too tired to try atsnd up this time Sit to supine moderate assist of 2 by PT and ELEAZAR Younger Gait: Not applicable, patient has been non-ambulatory Balance: Static Sitting: Good Dynamic Sitting: Fair Static Standing: Poor Dynamic Standing: Unable to test Special Tests: Mobility Limitations Standardized Measure [] [facility] AM-PAC 6 clicks Basic Mobility Inpatient Short Form: [] Raw Score: 10 CMS Score: 77% Informed Consent/Education: Patient instructed in purpose of PT consult and plan of care. Agreeable to proceed with established PT POC to achieve personal goals. Assessment: Patient with pre-existing high BMI, B LE /generalized weakness, B knee pain, recurrent low back pain, and ankle deformity which have rendered patient non- ambulatory and have been wheelchair-bound for over 2 years now. Admitting diagnoses have compounded mobility status as well as activity tolerance. Patient converted to swing bed level I status as of 03/10/2025 for continued abx treatment and functional mobility training. Session today consisted of SB1 initial evalaution and observation of patient's ability to move in bed and perform stand pivot transfer onto wheelchair in a simulated environment where a bedside commode was placed at foot of bed and wheelchair placed placed adjacent to commode and bed to assess transfer. Patient remains relatively weak and needed assistance of 2 people for safety. Standing up from a low surface would require up to 3 people for safety but if patient is placed in an elevated seat, patient is able to manage on her own using either a stable surface or grab bars. Onset of fatigue is quick related to ongoing pneumonia and pain level immediately increases from low back issue which negatively impact mobility performance. Patient is an 79 yo female who presents with clinical signs and symptoms consistent with current/admitting diagnoses that have resulted to mobility limitations, gait instability, generalized weakness, and impairment of motor control as demonstrated by the following impairment level findings: 1. Decreased strength to BLE major muscle groups 2. Impaired standing balance 3. Limitation of joint range of motion in B knee 4. Pain in Right hip and low back at L4 5. inability to tolerate unsupported sitting 6. impaired functional activity tolerance Impairments are contributing to the following functional limitations: 1. Inability to safely ambulate without assistive device 2. Increase completion time for mobility ADL performance 3. Increased fall risk 4. decline in bed mobility 5. decline in transfer skills Patient is assessed as a 24755 moderate complexity based on the following: History: 80-year-old female with impairment level findings, functional limitations, and past medical history as indicated above Examination: Demonstrable impairment in strength, balance, and mobility level with underlying impairments and functional limitations as documented above Presentation: Evolving Decision Makin moderate complexity Goalsx 1week: 1. roll B directions with rails with stand by assist 2. supine to sit at EOB with mod A of 2 3. sit at EOB with min A in prep for transfers 4. scoot to foot of bed with stand by assist 5. foot of bed transfer to wheelchair with stand by assist using stand ivot technique while holding onto bedside commode for stability 6. perform bed level exercises with 100% mastery for core and B LE strength ening Plan of Care/Treatment Plan: 1x/day, 7 days/week x 1 week. Plan of care has been reviewed with the CHARGE AUTHORIZER providing the service under Physical Therapy direction. Initiate Physical Therapy intervention for strengthening, bed mobility, transfers, gait, stairs, balance training, use of assistive device. DISCHARGE RECOMMENDATIONS: PT vs short-term SNF based on ability and availability of caregivers at home TREATMENT CODE/TIME: Sessin1--31612 x 20 minutes for 1 unit, 22091 x 35 mnutes for 2 units (10:04- 10:59). Session 2-- 00939 x 30 minutes for 2 units (12:58-13:28). Thank you for the opportunity to participate in the care of this patient. Marina Macario PT, DPT, CLT [facility], [place]
--- NOTE | 2025-03-11 11:46 | PHACLINREV_ITS ---
Pharmacy Admission Review Admission Clinical Review Admission Pharmacy Review: Bacteremia (Acute) Large hiatal hernia (Acute) On deep vein thrombosis (DVT) prophylaxis (Acute) Deficit in activities of daily living (ADL) (Acute) Degenerative arthritis of hip (Acute) Low back pain (Acute) Penicillins Allergy (Unknown, Verified 03/05/25 12:20) Unknown scopolamine Allergy (Unknown, Verified 03/05/25 12:20) Unknown Resuscitation Status Full Code Height 5 ft 9 in Weight 112.9 kg Pharmacy Admission Review Renal Dosing Medications needing adjustments: Reviewed (CrCl 58.11 mL/min) List of meds needing interventions: Current medications are okay Anticoagulation DVT Prophylaxis: Reviewed Medications: Enoxaparin (40mg daily) Opiate Usage Evaluate Pain Scale/Pains Meds: Reviewed (hydromorphone 0.5mg IVP q4h PRN - no doses given) Scheduled Bowel Reg ordered if on Opiates?: No (PRN Miralax) Relevant Labs Electrolytes, C-Reactive P, ESR: Reviewed (No new labs for today) Cardiac Review BP, HR, EF%: Reviewed (BP 149/82, HR WNL) QTc Review QTc: Reviewed (No EKG on file) IV to PO Switch IV Medications: Reviewed (cefazolin and hydromorphone) Home Meds Home Med List reviewed: Reviewed Relevent Home Meds Not ordered & why?: Patients own ursodiol brought in - 1 bottle sent up stairs, 2 others put in 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 Patient changed to swing bed status for 2 weeks of IV antibiotics - will complete on 03/22/25. Negative blood cultures on 03/08/25.
[2025-03-11] MEDS: Magnesium Chloride 64 MG TABCR PO (12:08)
[2025-03-11] MEDS: Lidocaine 5% Patch 2 PATCH TP (17:15)
[2025-03-11 19:45] VITALS: BP 131/70; PULSE 71; RESP 14; TEMP 36.9; O2SAT 94
[2025-03-11 20:00] VITALS: PULSE 72; O2SAT 96
[2025-03-11] MEDS: Albuterol/Ipratropium 3 ML UPD VIAL UPD (20:00)
[2025-03-11 20:04] VITALS: PULSE 73
[2025-03-12] MEDS: Normal Saline Flush 10 ML SYR IVP ×3 (03:07→20:28)
[2025-03-12] MEDS: ceFAZolin 2 GM/50 ML BAG IVPB ×3 (03:08→17:01)
[2025-03-12 07:34] VITALS: BP 138/87; PULSE 67; RESP 20; TEMP 36.6; O2SAT 94
[2025-03-12] MEDS: Celecoxib 100 MG CAP PO ×2 (09:17→20:30)
[2025-03-12] MEDS: Enoxaparin 40 MG/0.4 ML SYR SC (09:17)
[2025-03-12] MEDS: Patch Removal 1 EACH TP (09:19)
[2025-03-12] MEDS: Acetaminophen 325 MG TAB 650 MG PO ×4 (09:22→20:30)
[2025-03-12] MEDS: Clotrimazole 1% 15 GM TUBE TP (10:34)
[2025-03-12] MEDS: Magnesium Chloride 64 MG TABCR PO (12:54)
--- NOTE | 2025-03-12 16:08 | PT.INNT ---
PT Notes Visit Reasons: Bacteemia Patient expressed fatigue from yesterday's activities and planned to rest for today. Complained of increased B knee discomfort and feet pain. Nurse aware and managing. Agreeable to having no session today. Refused bed level exercises as well. Patient was seen from 16:08-16:16. No charge was made for this session. Patient will be seen tomorrow. Decrease to one time a day as of 03/13/2025 for PT services under swing bed elvel of care.
[2025-03-12] MEDS: Lidocaine 5% Patch 2 PATCH TP (20:30)
[2025-03-12 20:42] VITALS: BP 140/75; PULSE 72; RESP 18; TEMP 36.8; O2SAT 94
[2025-03-13] MEDS: ceFAZolin 2 GM/50 ML BAG IVPB ×3 (01:37→17:14)
[2025-03-13 08:00] VITALS: BP 153/93; PULSE 59; RESP 16; TEMP 36.2; O2SAT 93
[2025-03-13] MEDS: Celecoxib 100 MG CAP PO ×2 (09:11→20:43)
[2025-03-13] MEDS: Enoxaparin 40 MG/0.4 ML SYR SC (09:11)
[2025-03-13] MEDS: Normal Saline Flush 10 ML SYR IVP ×2 (09:13→20:45)
[2025-03-13] MEDS: Patch Removal 1 EACH TP (10:18)
[2025-03-13] MEDS: Magnesium Chloride 64 MG TABCR PO (11:05)
[2025-03-13] MEDS: Acetaminophen 325 MG TAB 650 MG PO ×3 (11:07→20:43)
[2025-03-13] MEDS: Clotrimazole 1% 15 GM TUBE TP ×2 (11:07→20:50)
--- NOTE | 2025-03-13 14:39 | PT.INTREAT ---
PT Notes Visit Reasons: Bacteemia Inpatient Physical Therapy Treatment Note [facility] Date: 03/13/25 PRECAUTIONS:Wheelchair-bound. Stand pivot transfer only. Activity as tolerated. May use STEDY back to bed if for safety. SUBJECTIVE: c/o right LE pain with bed mobility but states that it is better than it was prior to her injection. Pt reports that stretching is helpful with her pain management. She was able to perform a trunk rotation stretch that she likes to do in sitting with supervision. OBJECTIVE: ? Therapeutic Activities (50098w[1]): Direct one-on-one instruction in dynamic activities to improve functional performance. ?? BED MOBILITY/TRANSFERS? Rolling L/R: min assit and use of bed rail Supine-sit: min assist for trunk and left LE, mod assist for right LE? Sit-supine: min assist for trunk and left LE, mod assist for right LE?Static Sitting at edge of bed with supervision Dynamic sitting at edge with trunk rotation with supervision ? Therapeutic Exercises (07801a[1]): Direct one-on-one instruction in therapeutic exercises to develop strength, endurance, range of motion and flexibility. ? Exercises ? In bed: ankle pumps x 10 heel slides x 10 hip abd/add with assist right x 10 ASSESSMENT:? Pt continues to have limited functional mobility requiring skilled PT intervention. PLAN: Plan of Care/Treatment Plan: 1x/day, 7 days/week x 1 week. Plan of care has been reviewed with the SPECIAL AGENT FBI providing the service under Physical Therapy direction. Initiate Physical Therapy intervention for strengthening, bed mobility, transfers, gait, balance training, use of assistive device. DISCHARGE RECOMMENDATIONS: HH PT vs short-term SNF based on ability and availability of caregivers at home TREATMENT CODE/TIME: 48146 x 1 (20 minutes) 05247 x 1 (10 minutes) Total rx time 30 minutes 14:00-14:30
[2025-03-13] MEDS: Lidocaine 5% Patch 2 PATCH TP (20:44)
[2025-03-13 22:19] VITALS: BP 164/89; PULSE 75; RESP 18; TEMP 37.6; O2SAT 94
[2025-03-14] MEDS: ceFAZolin 2 GM/50 ML BAG IVPB ×3 (01:46→17:35)
[2025-03-14] MEDS: Acetaminophen 325 MG TAB 650 MG PO ×3 (08:00→17:35)
[2025-03-14] MEDS: Celecoxib 100 MG CAP PO ×2 (08:00→20:02)
[2025-03-14] MEDS: Enoxaparin 40 MG/0.4 ML SYR SC (08:01)
[2025-03-14] MEDS: Normal Saline Flush 10 ML SYR IVP ×2 (08:03→20:00)
[2025-03-14 08:42] VITALS: BP 147/76; PULSE 69; RESP 16; TEMP 36.3; O2SAT 93
--- NOTE | 2025-03-14 11:43 | PT.INTREAT ---
PT Notes Visit Reasons: Bacteemia Inpatient Physical Therapy Treatment Note [facility] Date: 03/14/25 SUBJECTIVE: Angeline is willing to participate in PT this am. Offers no complaints to me. OBJECTIVE: []? VITALS: ?monitored by nsg. Therapeutic Activities (51705n7): Direct one-on-one instruction in dynamic activities to improve functional performance. ? BED MOBILITY/TRANSFERS? Supine-sit: CGA/Min A? Sit-supine: ? Sit-stand: CGA of 2.? Stand-sit: CGA of 2.? Bed-Chair:CGA/min A of 2 ? Pivot transfer only? Chair-bed: [] Provided skilled cues and instruction on performance and technique throughout. Does well as long as bed is elevated. ? Therapeutic Exercises (46188h3): Direct one-on-one instruction in therapeutic exercises to develop strength, endurance, range of motion and flexibility. ? Exercises ?AP and circles. SAQ x10 ea, hip flex, abd/add x10 ea. SLR x8ea ? Provided skilled instruction in proper exercise performance ASSESSMENT:? tolerated session well. Has a hard time transferring sit to stand if hips are not quite a bit higher than knees. PLAN: will continue to work on her strength and improving her functional mobility to tolerance. TREATMENT CODE/TIME: 25 min. [id number] 67823h4 DISCHARGE RECOMMENDATION: home with HH PT vs SNF
[2025-03-14] MEDS: Patch Removal 1 EACH TP (11:52)
[2025-03-14] MEDS: Magnesium Chloride 64 MG TABCR PO (13:02)
[2025-03-14 17:30] VITALS: BP 157/93; PULSE 89; RESP 16; TEMP 36.8; O2SAT 92
[2025-03-14 18:16] VITALS: BP 157/93; PULSE 89; RESP 16; TEMP 36.8; O2SAT 92
[2025-03-14 19:28] VITALS: BP 124/79; PULSE 66; RESP 18; TEMP 36.4; O2SAT 96
[2025-03-14] MEDS: Lidocaine 5% Patch 2 PATCH TP (20:00)
[2025-03-15] MEDS: ceFAZolin 2 GM/50 ML BAG IVPB ×3 (01:52→17:34)
[2025-03-15 07:31] VITALS: BP 137/71; PULSE 66; RESP 16; TEMP 36.7; O2SAT 95
--- NOTE | 2025-03-15 09:22 | CMPROGNOTE_ITS ---
Date of service: 03/15/25 Time of Service: 13:58 Care Management Progress Note Progress Note Text Progress Note Text: Angeline was sitting in the chair and reading on her Ipad when CM met with her. She was pleasant and states she is feeling much better. Angeline remains on IV antibiotics, with the current treatment scheduled to continue through 03/22. Per RN, Angeline has been declining to work with some members of the care team. CM discussed with Angeline, the importance of collaboration with all staff involved in her care to support a safe and effective recovery. CM encouraged Angeline to increase her mobility with some independence, as appropriate, to help simulate the daily activities she will need to perform at home such as moving up in bed. Angeline has previously stated her goal is to return to baseline function. CM will continue to monitor and provide support as needed. Discharge Potential Discharge Needs: PCP F/U Appt Anticipated Barriers to Discharge: Medical Status Patient/Family Education Needs: Review discharge instructions, discuss Ask Me Three Transportation: Private vehicle Plan: Angeline continues to need any extended course of antibiotics, is working with PT and remains in swing bed 1. Once discharged, Angeline community providers and continue per her plan of care. Angeline's transport recommendation will be dependant upon her mobility at time of discharged. She likely will be referred to services of PT/OT/SENIOR RADIATION THERAPIST at discharge. CM will continue to follow. Social Determinants of Health Screening Will the Patient Participate in the Screening?: Unable to obtain
[2025-03-15] MEDS: Acetaminophen 325 MG TAB 650 MG PO ×4 (09:47→21:56)
[2025-03-15] MEDS: Omeprazole 20 MG CAPCR PO (09:47)
[2025-03-15] MEDS: Celecoxib 100 MG CAP PO ×2 (09:47→21:56)
[2025-03-15] MEDS: Enoxaparin 40 MG/0.4 ML SYR SC (09:47)
[2025-03-15] MEDS: Normal Saline Flush 10 ML SYR IVP ×3 (09:48→17:34)
[2025-03-15] MEDS: Patch Removal 1 EACH TP (10:35)
[2025-03-15] MEDS: Magnesium Chloride 64 MG TABCR PO (13:18)
[2025-03-15] MEDS: Clotrimazole 1% 15 GM TUBE TP (13:20)
--- NOTE | 2025-03-15 13:35 | PTTR_ITS ---
PT Notes Visit Reasons: Bacteemia Physical Therapy Swing Bed level 1 Treatment Note Date: 03/15/2025 Precautions: Wheelchair-bound. Stand pivot transfer only. Activity as tolerated. Subjective: Willing to get out of bed this afternoon. Wanted to try getting out from edge of bed today, happy that she has gotten better with this. Objective: General Observation: RACHEL Garibay in room discussing discharge plans with patient. Patient with high BMI. Resting in bed in semi-hernandez's in bed. B hip in ER with R more than L. B ankle with charcot deformities. Hemosiderrin staining to B legs from venous insufficiency. Mental Status: A and O x 4 Pain: None reported during transfers Bed Mobility/Transfers: Provided minimal verbal cueing to make use of the HOB adjustments as well as the bed rails as needed to move in bed Supine to sit--stand by assist Sit to squat from elevated bed height while holding onto elevated bedside commode handles--contact guard assist of PT, bedside commode stabilized as well to prevent it from tipping. Bed to bedside commode contact guard assist using squat pivot technique with both hands holding onto commode handles/commode seat/edge of bed for support. Provided assiatnce with pericare after a bowel movement. Bedside commode to bed contact guard assist using squat pivot technique with both hands holding onto commode handles/commode seat/edge of bed for support Bed to wheelchair contact guard assist using squat pivot technique with both hands holding onto commode handles/commode seat/edge of bed for support Wheelchair Propulsion: Modified independent using B UE and LE for maneuvering. Two 2-inch cushions were placed to elevate patient to allow for better alignment, small piece of rubber placed in between cushion to prevent slippage of top cushion over bottom cushion. Patient highly enjoys this ability to independently explore environm ent. Gait: Not applicable, patient has been non-ambulatory Balance: Static Sitting: Good Dynamic Sitting: Fair Static Standing: Poor Dynamic Standing: Unable to test Assessment: Functional gains improving with patient now able to get in and out of bed from the edge with just stand by assist. After set up, with transfer surface at the right height and with pain level well-managed, patient is able to independently transfer bed<>commode<>wheelchair with contact guard assist using stand pivot technique and stabilization of transfer surface by provider/caregiver. Patient has developed B LE deformity and long-standing edema which alongside her high BMI have required the use of wheelchair as her main mode of mobility at home. She has had a good set up of all her equipment at home which has enabled her to manage with modified independence for all transfers at home. Patient will continue to benefit from progressive strengthening and functional mobility training to optimize transfer performance and reduce fall risk at home. Plan of Care/Treatment Plan: 1x/day, 7 days/week x 1 week. Plan of care has been reviewed with the VITICULTURE TEACHER providing the service under Physical Therapy direction. Initiate Physical Therapy intervention for strengthening, bed mobility, transfers, gait, stairs, balance training, use of assistive device. DISCHARGE RECOMMENDATIONS: PT TREATMENT CODE/TIME: 84580 x 38 minutes for 3 units (13:35-14:13)
[2025-03-15 21:50] VITALS: BP 141/80; PULSE 73; RESP 16; TEMP 36.2; O2SAT 96
[2025-03-15] MEDS: Lidocaine 5% Patch 2 PATCH TP (21:56)
[2025-03-16] MEDS: ceFAZolin 2 GM/50 ML BAG IVPB ×3 (02:29→18:31)
[2025-03-16 07:45] VITALS: BP 137/76; PULSE 59; RESP 16; O2SAT 92
[2025-03-16] MEDS: Celecoxib 100 MG CAP PO ×2 (08:29→20:36)
[2025-03-16] MEDS: Acetaminophen 325 MG TAB 650 MG PO ×4 (08:29→20:36)
[2025-03-16] MEDS: Normal Saline Flush 10 ML SYR IVP ×2 (08:30→20:37)
[2025-03-16] MEDS: Enoxaparin 40 MG/0.4 ML SYR SC (08:30)
[2025-03-16] MEDS: Clotrimazole 1% 15 GM TUBE TP ×2 (08:31→20:43)
[2025-03-16] MEDS: Patch Removal 1 EACH TP (08:32)
[2025-03-16] MEDS: Magnesium Chloride 64 MG TABCR PO (12:12)
--- NOTE | 2025-03-16 12:39 | PTTR_ITS ---
PT Notes Visit Reasons: Bacteemia Physical Therapy Swing Bed level 1 Treatment Note Date: 03/16/2025 Precautions: Wheelchair-bound. Stand pivot transfer only. Activity as tolerated. Subjective: Willing to get out of bed this afternoon. Pt requesting to attempt commode/toilet transfer from w/c this session. Objective: General Observation: Patient with high BMI. Resting in bed in semi-hernandez's in bed. B hip in ER with R more than L. B ankle with charcot deformities. Hemosiderrin staining to B legs from venous insufficiency. Mental Status: A and O x 4 Pain: None reported during transfers Bed Mobility/Transfers: Provided minimal verbal cueing to make use of the HOB adjustments as well as the bed rails as needed to move in bed Supine to sit--stand by assist Bed to w/c transfer as follows: Sit to squat from elevated bed height (25) while holding onto elevated bedside commode handles--contact guard assist of PT, bedside commode stabilized as well to prevent it from tipping. Pt moves slowly and and is able to reposition BUE and BLE as needed for transfer. pull to stand at grab bar x 6 trials from elevated w/c height of 25.5 height with min A of 1 in prep for pivot to toilet like she does at home. pull to stand at grab bar from 24 inch height pt min A - attempt transfer from w/c to toilet with elevated seat however pt unable to pivot/swivel feet ones she achieved stand position d/t texture of the tile on the floor near the toilet. Wheelchair Propulsion: Modified independent using B UE and LE for maneuvering within room. Two 2-inch cushions were placed to elevate patient to allow for better alignment, nonslip matting placed in between cushion to prevent slippage of top cushion over bottom cushion. Patient highly enjoys this ability to independently explore environment. Gait: Not applicable, patient has been non-ambulatory Balance: Static Sitting: Good Dynamic Sitting: Fair Static Standing: Poor Dynamic Standing: Unable to test Assessment: Functional gains improving with patient now able to get in and out of bed from the edge with just stand by assist. After set up, with transfer surface at the right height and with pain level well-managed, patient is able to transfer bed<>wheelchair/commode with contact guard assist using stand pivot technique and stabilization of transfer surface by provider/caregiver utilizing a commode for BUE support. Pt requires surfaces >25.5 inches to perform sit to stand without assistance. At surfaces less than 25 inches, pt requires assist to get weight shift forward onto her feet . Patient has developed B foot deformity and long-standing edema which alongside her high BMI have required the use of wheelchair as her main mode of mobility at home. She has had a good set up of all her equipment at home which has enabled her to manage with modified independence for all transfers at home. Patient will continue to benefit from progressive strengthening and functional mobility training to optimize transfer performance and reduce fall risk at home. Plan of Care/Treatment Plan: 1x/day, 7 days/week x 1 week. Plan of care has been reviewed with the VETERINARY SCIENCE TEACHER providing the service under Physical Therapy direction. Initiate Physical Therapy intervention for strengthening, bed mobility, transfers, gait, stairs, balance training, use of assistive device. DISCHARGE RECOMMENDATIONS: PT TREATMENT CODE/TIME: 45005 x 45 minutes for 3 units ([id number])
[2025-03-16 20:34] VITALS: BP 134/75; PULSE 76; RESP 18; TEMP 36; O2SAT 96
[2025-03-16] MEDS: Lidocaine 5% Patch 2 PATCH TP (20:48)
[2025-03-17] MEDS: ceFAZolin 2 GM/50 ML BAG IVPB ×3 (01:55→18:23)
[2025-03-17 07:14] LABS: Abs Immature Grans 0.05 10^3/uL (0.0-0.06); HCT 33.3 % (36.0-46.0); HGB 10.6 g/dL (11.2-15.7); Immature Grans % 0.9 %; MCH 28.6 pg (27.0-33.0); MCHC 31.8 % (32.0-36.0); MCV 90 fL (80-95); MPV 9.3 fL (8.0-11.0); Platelet Count 345 10^3/uL (130-400); RBC 3.71 10^6/uL (3.93-5.22); RDW 14.7 % (11.7-14.6); RDW-SD 48.5 fL; WBC 5.28 10^3/uL (4.4-10.8)
[2025-03-17 07:29] LABS: Anion Gap 6.6 mmol/L (3-11); BUN 21 mg/dL (7-18); CO2 29.4 mmol/L (21.0-32.0); Calcium 9.0 mg/dL (8.5-10.1); Chloride 105 mmol/L (98-107); Estimated GFR 73.52 (mL/min/1.73m2); Glucose 91 mg/dL (74-106); Magnesium 1.7 mg/dL (1.8-2.4); Potassium 4.4 mmol/L (3.5-5.1); Sodium 141 mmol/L (136-145)
[2025-03-17 07:48] VITALS: BP 136/71; PULSE 64; RESP 17; TEMP 36.9; O2SAT 94
--- NOTE | 2025-03-17 09:38 | PGE_ITS ---
Date of Service Date of service: 03/17/25 Time of Service: 09:38 Assessment and Plan Assessment and plan (1) Bacteremia: Status: Acute Assessment and plan: On IV cefazolin for positive blood cultures 03/05/25 gowing group B strep Negative blood cultures at 120 hours from 03/08/25 and 2 weeks of IV cefazolin to be completed on March 22, 2025. echo w/o no evidence of vegetation (2) Large hiatal hernia: Status: Acute Assessment and plan: Chest CT report: - Large retrocardiac hiatal hernia w/o other mediastinal masses; questioning to a somewhat ectatic SVC -Few lymph nodes in the right infrahilar region around the right main pulmonary vein. These correspond to a small right pericardiac density on chest x-ray. Outpatient follow-up- PCP to refer to GI (3) Low back pain: Status: Acute Assessment and plan: As per XR findings on 03/07/25: severe advanced degenerative changes in the right hip and degenerative facet arthropathy noted in the lower lumbar spine. Steroid infiltration completed to R hip joint by Dr. Arevalo on 03/08 with ongoing improved pain control - As per notes: If no significant improvements could consider CT of the pelvis with contrast. - Consider outpatient f/u with orhtopedics Ongoing scheduled acetaminophen and celebrex Dilaudid will transition to PRN oral Nursing to offer pain medicine - and will premedicate prior to PT (4) Osteoarthritis: Status: Chronic Assessment and plan: see ortho notes significant and multiple locations; she has been wc bound for quite some time, months to years. Has less pain on current pain medicines (5) Degenerative arthritis of hip: Status: Acute Assessment and plan: As per XR on 03/07/25:severe advanced degenerative changes in the right hip and degenerative facet arthropathy noted in the lower lumbar spine. 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 Martinez Subjective Subjective Patient reports: feels better, still having pain, pain is less, tolerating liquids well, tolerating a regular diet, voiding w/o difficulty, flatus and bowel movement; denies diarrhea, nausea, vomiting, shortness of breath or fever Exam Narrative Exam Narrative: 80-year-old female patient without acute distress, neurologically intact , unlabored breathing clear lungs, S1-S2 regular heart, abdomen is nondistended soft nontender,ankles and feet deformities with chronic dark discoloration, pulses are positive palpable to all 4 extremities Objective Last Vital Signs Temp 36.9 C 03/17/25 07:48 Pulse 64 03/17/25 07:48 Resp 17 03/17/25 07:48 BP 136/71 03/17/25 07:48 Pulse Ox 94 03/17/25 07:48 Laboratory Results - last 24 hr 03/17/25 06:30 WBC 5.28 RBC 3.71 L Hgb 10.6 L Hct 33.3 L MCV 90 MCH 28.6 MCHC 31.8 L RDW 14.7 H Plt Count 345 MPV 9.3 Immature Gran % 0.9 Neutrophils % 51.6 Lymphocytes % 25.9 Monocytes % 15.2 Eosinophils % 5.1 Basophils % 1.3 Nucleated RBC % 0.0 Absolute Neutrophils 2.72 Absolute Lymphocytes 1.37 Absolute Monocytes 0.80 Absolute Eosinophils 0.27 Absolute Basophils 0.07 Sodium 141 Potassium 4.4 Chloride 105 Carbon Dioxide 29.4 Anion Gap 6.6 BUN 21 H Creatinine 0.8 Est GFR (CKD-EPI 2020) 73.52 Glucose 91 Calcium 9.0 Magnesium 1.7 L Time Spent with Patient Time Spent with Patient: >50 minutes Time was spent: preparing to see the patient(eg.review tests), obtaining and/or reviewing separately otained hiistory, ordering medications,tests, procedures, referring, communicating with other health patient care technician instructor, indepentently interpreting results, counseling the patient, care coordination and other
[2025-03-17] MEDS: Celecoxib 100 MG CAP PO ×2 (09:39→20:26)
[2025-03-17] MEDS: Acetaminophen 325 MG TAB 650 MG PO ×4 (09:40→20:26)
[2025-03-17] MEDS: Enoxaparin 40 MG/0.4 ML SYR SC (09:40)
[2025-03-17] MEDS: Clotrimazole 1% 15 GM TUBE TP ×2 (09:40→20:33)
[2025-03-17] MEDS: Normal Saline Flush 10 ML SYR IVP ×2 (09:41→20:29)
[2025-03-17] MEDS: Lidocaine Patch Removal 2 EACH TP (09:43)
--- NOTE | 2025-03-17 11:48 | PTTR_ITS ---
PT Notes Visit Reasons: Bacteemia Physical Therapy Swing Bed level 1 Treatment Note Date: 03/17/2025 Precautions: Wheelchair-bound. Stand pivot transfer only. Activity as tolerated. Subjective: Pt agreeable to use the commode for toileting. Objective: General Observation: Patient with high BMI. Resting in bed in semi-hernandez's in bed. B hip in ER with R more than L. B ankle with charcot deformities. Hemosiderrin staining to B legs from venous insufficiency. Mental Status: A and O x 4 Pain: None reported during transfers Bed Mobility/Transfers: Provided minimal verbal cueing to make use of the HOB adjustments as well as the bed rails as needed to move in bed Supine to sit--stand by assist with bed rail Bed to commode transfer as follows: Sit to squat from elevated bed height (25) while holding onto wheelchair--contact guard assist of PT, bedside commode stabilized as well to prevent it from tipping. Pt moves slowly and and is able to reposition BUE and BLE as needed for transfer. Sit to stand from commode min A for initial lift off commode then able to achieve 3/4 stand for transfer holding onto w/c and bed as she pivoted to the left pull to stand at grab bar x 2 trials from elevated w/c height of 25.5 height with min A of 1 in prep for pivot to toilet like she does at home. - attempt transfer from w/c to toilet with elevated seat however pt unable to pivot/swivel feet ones she achieved stand position d/t texture of the tile on the floor near the toilet. Wheelchair Propulsion: Modified independent using B UE and LE for maneuvering within room. Two 2-inch cushions were placed to elevate patient to allow for better alignment, nonslip matting placed in between cushion to prevent slippage of top cushion over bottom cushion. Patient highly enjoys this ability to independently explore environment. Gait: Not applicable, patient has been non-ambulatory Balance: Static Sitting: Good Dynamic Sitting: Fair Static Standing: Poor Dynamic Standing: Unable to test Assessment: Pt able to perform toilet hygiene while on commode as she was able to lean to the right onto the bed then perform pericare. Functional gains improving with patient now able to get in and out of bed from the edge with just stand by assist. After set up, with transfer surface at the right height and with pain level well-managed, patient is able to transfer bed<>wheelchair/commode with contact guard assist using stand pivot technique and stabilization of transfer surface by provider/caregiver utilizing a commode for BUE support. Pt requires surfaces >25.5 inches to perform sit to stand without assistance. At surfaces less than 25 inches, pt requires assist to get weight shift forward onto her feet . Patient has developed B foot deformity and long-standing edema which alongside her high BMI have required the use of wheelchair as her main mode of mobility at home. She has had a good set up of all her equipment at home which has enabled her to manage with modified independence for all transfers at home. Patient will continue to benefit from progressive strengthening and functional mobility training to optimize transfer performance and reduce fall risk at home. Plan of Care/Treatment Plan: 1x/day, 7 days/week x 1 week. Plan of care has been reviewed with the BOOM TRUCK DRIVER providing the service under Physical Therapy direction. Initiate Physical Therapy intervention for strengthening, bed mobility, transfers, gait, stairs, balance training, use of assistive device. DISCHARGE RECOMMENDATIONS: PT TREATMENT CODE/TIME: 55258 x 40 minutes for 3 units ([id number])
[2025-03-17] MEDS: Magnesium Chloride 64 MG TABCR PO (11:59)
[2025-03-17] MEDS: MAGNESIUM SULFATE 2 GM/50 ML BAG IV_INF (12:19)
--- NOTE | 2025-03-17 13:55 | OT.INIE ---
Occupational Therapy Notes Inpatient Occupational Therapy Evaluation Date: 03/17/25 Referring Doctor: Dr. Baron OT Orders: Non Urgent Precautions: Fall, Standard, Full PATIENT PROFILE/ADMITTING DIAGNOSIS: Pt is a 80 year old female who was admitted through the ED on 03/05 with a clinical impression of Lumbar back pain, Lung infiltrate, Chills. She is currently still admitted with the dx of severe right hip and low back pain x 2 days. 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 Past Medical History: All Active Problems (Updated 03/05/25 @ 18:14 by Joan Larkin NP) Low back pain (Acute) Community acquired bilateral lower lobe pneumonia (Acute) Chills (Acute) Lung infiltrate (Acute) Lumbar back pain (Acute) Vitamin D deficiency (Acute) Senile cataract (Acute) Obesity (Chronic) GERD (gastroesophageal reflux disease) (Chronic) Biliary cirrhosis (Acute) Surgical History (Updated 01/04/25 @ 11:24 by Sergio Woodall RN) History of tonsillectomy History of hand surgery Left thumb tendon repair History of hysterectomy History of cholecystectomy History of appendectomy Social History/Home Situation: Pt states that she is living in an apartment off from her family members. She utilizes a wheelchair which she performs her functional mobility through. She notes that she does need (A) at times. She has deformities to her (B) feet which limit her in her functional (I) with her ADLs. She notes that she has a shower which she does not utilize unless her son is around to make sure she is safe. Overall she notes that she has been performing most of her ADLs. She has her own kitchen which she states is hard at times d/t height of the shelves but she is able to perform throughout (I) when she is home. She denies any HH services or regular (A) throughout the day. Equipment owned/DME: Wheelchair, grab bars SUBJECTIVE: Pt was sitting in her wheelchair when OT arrived. She is agreeable to consult. OBJECTIVE: General Observation: Pleasant, IV in (L) UE Mental Status: A&Ox3 Pain: no c/o pain ROM: RUE Functionally WL with some stiffness in (B) shoulders L UE Functionally WL with some stiffness in (B) shoulders STRENGTH: RUE 4/5 throughout globally LUE 4-/5 throughout globally FUNCTIONAL MOBILITY/ADLS: BATHING seated with max (A) Set up/clean up Bathing UE (I) with UE Bathing LE Min (A) LE DRESSING seated in wheelchair Dressing UE (I) Dressing LE Min (A) if needed for shoe placement GROOMING (I) with brushing hair, minimal teeth which she notes that she does not perform oral hygiene d/t this TOILETING on toilet, did not perform this OT but pt describes her pivot transfer as a foot slide. She states that it does make it look like she is going to fall which may pose as a safety risk for toileting at home. EATING seated needs food chopped up and (A) with this. Otherwise (I) with hand to mouth BALANCE: Static sitting Normal Dynamic Sitting Good SPECIAL TESTS: Daily Activity Limitations Standardized Measure [facility] AM -PAC ?6 clicks? Daily Activity Inpatient Short Form: Raw score: 21 Standardized score: 44.27 CMS score: 32.79% INFORMED CONSENT/EDUCATION: Pt instructed in purpose of OT Consult and plan of care. ASSESSMENT: Patient is a 80-year-old female referred to occupational therapy services with diagnosis of severe right hip and low back pain x 2 days. 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 Patient presents with clinical signs and symptoms consistent with dx, as demonstrated by the following impairment level findings/functional limitations: Impairments in ADL/IADL and leisure activities, decreased functional activity tolerance, decreased functional mobility, decreased tolerance to ADLs/IADL routines (I), requires (A) with LE dressing, unsteady shift and transfer at times per pt reports, increased performance time for ADL performance. AMPAC score 21 Patient is assessed as a Moderate 72378 complexity based on the following: History: see above Examination: see functional limitations as noted above Presentation: evolving Decision Making: AMPAC score 21 GOALS Goals x1 week 1. Transfers with pivot transfer to toilet min (A) 2. Dressing seated (I) UE and mod (I) LE 3. Bathing seated (I) UE and min (A) LE 4. Toileting on toilet (I) 5. Eating (I) PLAN OF CARE/TREATMENT PLAN: 1x/day, 3-5 days/ week x 1week Initiate Occupational Therapy Services for bathing, dressing, grooming, toileting, eating, transfer training. DISCHARGE RECOMMENDATIONS OT recommends that pt go SNF vs. HHOT for assessment of her ADLs in the home setting and assessment of pts adaptive equipment needs to improve pts overal safety and functional (I). TREATMENT TIME/MINUTES/CODES 16686, 20 minutes Madelin Villegas OTR/L [facility] [place], [place]
[2025-03-17 19:27] VITALS: BP 124/82; PULSE 82; RESP 22; TEMP 36.5; O2SAT 96
[2025-03-17] MEDS: Lidocaine 5% Patch 2 PATCH TP (20:27)
[2025-03-18] MEDS: ceFAZolin 2 GM/50 ML BAG IVPB ×3 (04:01→18:20)
[2025-03-18 07:24] LABS: Magnesium 2.2 mg/dL (1.8-2.4)
[2025-03-18 08:12] VITALS: BP 117/65; PULSE 65; RESP 16; TEMP 36.7; O2SAT 92
[2025-03-18] MEDS: Acetaminophen 325 MG TAB 650 MG PO ×4 (09:25→19:59)
[2025-03-18] MEDS: Celecoxib 100 MG CAP PO ×2 (09:26→20:00)
[2025-03-18] MEDS: Enoxaparin 40 MG/0.4 ML SYR SC (09:27)
[2025-03-18] MEDS: Omeprazole 20 MG CAPCR PO (09:27)
[2025-03-18] MEDS: Lidocaine Patch Removal 2 EACH TP (09:28)
[2025-03-18] MEDS: Clotrimazole 1% 15 GM TUBE TP ×2 (09:29→20:07)
[2025-03-18] MEDS: Normal Saline Flush 10 ML SYR IVP ×2 (09:30→20:10)
--- NOTE | 2025-03-18 12:17 | PT.INTREAT ---
PT Notes Visit Reasons: Bacteemia Inpatient Physical Therapy Treatment Note [facility] Date: 03/18/25 PRECAUTIONS: foot deformities bilaterally which may effect transfers SUBJECTIVE: I use the commode as a walker. It just works for me. OBJECTIVE: ? PAIN: notes low back pain on the right side VITALS: monitored by nursing Therapeutic Activities ([id number]): Direct one-on-one instruction in dynamic activities to improve functional performance. ? BED MOBILITY/TRANSFERS? Rolling L/R: SBA Supine-sit: min assist ? Sit-stand: min assist? Stand-sit: min assist ? Bed-Chair: CGA? Chair-bed: CGA Provided skilled cues and instruction on performance and technique throughout. ? ASSESSMENT:? Angeline has a particular way of performing her transfer to and from her wheelchair which seems to work for her. She is able to perform this stand pivot transfer with CGA but does demonstrate a significant flexed trunk posture when doing so. She likely has developed low back pain from this so she was instructed on extension based exercises to help with pain management. She was left in her wheelchair by her request and nursing was made aware. PLAN: Continue plan of transfer training, promoting functional independence TREATMENT CODE/TIME: Ther Act x2 (74706) - 25 min DISCHARGE RECOMMENDATION: D/c home with home health services
[2025-03-18] MEDS: Magnesium Chloride 64 MG TABCR PO (12:19)
[2025-03-18 19:31] VITALS: BP 137/93; PULSE 79; RESP 20; TEMP 36.3; O2SAT 93
[2025-03-18] MEDS: Lidocaine 5% Patch 2 PATCH TP (20:00)
[2025-03-19] MEDS: ceFAZolin 2 GM/50 ML BAG IVPB ×3 (01:54→17:37)
[2025-03-19] MEDS: Celecoxib 100 MG CAP PO ×2 (10:07→19:39)
[2025-03-19] MEDS: Enoxaparin 40 MG/0.4 ML SYR SC (10:09)
[2025-03-19] MEDS: Normal Saline Flush 10 ML SYR IVP ×4 (10:10→19:45)
[2025-03-19] MEDS: Clotrimazole 1% 15 GM TUBE TP (10:11)
[2025-03-19] MEDS: Lidocaine Patch Removal 2 EACH TP (10:12)
[2025-03-19] MEDS: Acetaminophen 325 MG TAB 650 MG PO ×3 (10:24→19:39)
[2025-03-19 10:31] VITALS: BP 119/88; PULSE 83; RESP 19; TEMP 36; O2SAT 96
--- NOTE | 2025-03-19 12:29 | PT.INTREAT ---
PT Notes Visit Reasons: Bacteemia Inpatient Physical Therapy Treatment Note [facility] Date: 03/19/25 PRECAUTIONS: fall precautions SUBJECTIVE: I think it's about time to get up and washed up. OBJECTIVE: ? PAIN: some pain noted in RLE today which she states is due to her edema VITALS: monitored by nursing Therapeutic Activities ([id number]): Direct one-on-one instruction in dynamic activities to improve functional performance. ? BED MOBILITY/TRANSFERS? Rolling L/R: SBA Supine-sit: SBA ? Sit-supine: SBA? Sit-stand: CGA ? Stand-sit: CGA? Bed-Chair: CGA ? Chair-bed: CGA -Provided skilled cues and instruction on performance and technique throughout. ? Exercises: quad sets, heel slides, SLRs (AAROM on RLE), bridges to about 50%, sidelying clams x10 each bilaterally ? ASSESSMENT:? Pt a full participant in bed exercise session today before doing a stand pivot transfer to her wheelchair. She has significant glute atrophy especially on the RLE making it difficult for her to perform bridges and clams. She continues to be very particular about her stand pivot transfer. She only requires CGA for this but she does not perform this with the best posture. She was provided with an HEP today to allow her to perform exercises independently. PLAN: continue strengthening progressions, attempt safer transfers TREATMENT CODE/TIME: Ther Act (76570) x2 - 30 min DISCHARGE RECOMMENDATION: PRINCESS PT
[2025-03-19] MEDS: Magnesium Chloride 64 MG TABCR PO (13:22)
[2025-03-19 19:27] VITALS: BP 131/68; PULSE 62; RESP 18; TEMP 36.1; O2SAT 97
[2025-03-19] MEDS: Lidocaine 5% Patch 2 PATCH TP (19:40)
[2025-03-20] MEDS: ceFAZolin 2 GM/50 ML BAG IVPB ×3 (01:05→17:33)
[2025-03-20 08:09] VITALS: BP 118/72; PULSE 65; RESP 16; TEMP 36.6; O2SAT 95
[2025-03-20] MEDS: Enoxaparin 40 MG/0.4 ML SYR SC (09:03)
[2025-03-20] MEDS: Acetaminophen 325 MG TAB 650 MG PO ×4 (09:03→20:03)
[2025-03-20] MEDS: Celecoxib 100 MG CAP PO ×2 (09:03→20:03)
[2025-03-20] MEDS: Lidocaine Patch Removal 2 EACH TP (09:04)
[2025-03-20] MEDS: Normal Saline Flush 10 ML SYR IVP ×2 (09:05→20:03)
[2025-03-20] MEDS: Clotrimazole 1% 15 GM TUBE TP (09:05)
[2025-03-20] MEDS: Magnesium Chloride 64 MG TABCR PO (12:41)
--- NOTE | 2025-03-20 13:55 | OT.INTREAT ---
Occupational Therapy Notes Occupational Therapy Inpatient Treatment Note Date: 03/20/25 PRECAUTIONS: Fall, Standard, Full SUBJECTIVE: Pt was sitting in wheelchair when OT arrived and is agreeable to OT session. She states that she is doing well and feeling well at this time. OBJECTIVE: PAIN:no c/o pain BATHING: NT at todays session however assessment of ROM which pt is (I) with UE ROM required for bathing routines (I). DRESSING: seated in chair Upper Extremity: (I) don and doffing shirt Lower Extremity: (I) don and doffing shoes TREATMENT CODES/TIME: 54681, 10 minutes Madelin Villegas OTR/[facility] [place], [place]
--- NOTE | 2025-03-20 13:56 | PT.INPN ---
PT Notes Visit Reasons: [facility] Inpatient Physical Therapy Progress Note Date: 03/20/2025 Dates of Service: 03/11/2025-03/18/2025 PRECAUTIONS: Fall Risk , IV line LUE, B pes valgus deformities SUBJECTIVE: Pt reports she is feeling stronger and is looking forward to going home after her antibiotics are completed. Pt also expressed interest in outpatient PT after her initial home PT is completed. OBJECTIVE PAIN: right back /10 BED MOBILITY/TRANSFERS Rolling L/R:Independent Supine-sit: CGA with HOB up Sit-supine: min A for LEs Sit-stand: CGA to min A depending on height of surface standing from / >25.5 Inch height CGA ; > 25.5 min A Stand-sit: CGA Bed-Chair: stand pivot technique while holding onto bedside commode for stability- CGA / occassional min A depending on height of bed Chair-bed: stand pivot technique while holding onto bedside commode for stability- CGA / occassional min A depending on height of bed GAIT: Non Ambulatory x 2 years VITALS: monitored by Nursing THEREX: quad sets, heel slides, SLRs (AAROM on RLE), bridges to about 50%, sidelying clams x10 each bilaterally STAIRS: not applicable ASSESSMENT: Angeline has demonstrated significant gains toward her goals. She remains limited by the severity of her B foot deformities.and severity of her Arthritis with crepitus B knee, impaired hip abduction and extension musculature strength/motor control. Patient is an 79 yo female who presents with clinical signs and symptoms consistent with current/admitting diagnoses that have resulted to mobility limitations, gait instability, generalized weakness, and impairment of motor control as demonstrated by the following impairment level findings: 1. Decreased strength to BLE major muscle groups 2. Impaired standing balance 3. Limitation of joint range of motion in B knee 4. Pain in Right hip and low back at L4 5. inability to tolerate unsupported sitting 6. impaired functional activity tolerance Impairments are contributing to the following functional limitations: 1. Inability to safely ambulate without assistive device 2. Increase completion time for mobility ADL performance 3. Increased fall risk 4. decline in bed mobility 5. decline in transfer skills Patient is assessed as a 80910 moderate complexity based on the following: History: 80-year-old female with impairment level findings, functional limitations, and past medical history as indicated above Examination: Demonstrable impairment in strength, balance, and mobility level with underlying impairments and functional limitations as documented above Presentation: Evolving Decision Makin moderate complexity Goalsx 1week: 1. roll B directions with rails with stand by assist Goal MET 2. supine to sit at EOB with mod A of 2- GOAL MET SBA with HOB elevated 3. sit at EOB with min A in prep for transfers - Goal Met x 20 mins Independent 4. scoot to foot of bed with stand by assist- NOT MET occassional min A 5. foot of bed transfer to wheelchair with stand by assist using stand pivot technique while holding onto bedside commode for stability- CGA / occassional min A depending on height of bed 6. perform bed level exercises with 100% mastery for core and B LE strengthening - NOT MET Continued/New goals: 1. scoot to foot of bed with SBA 2. foot of bed transfer to/from wheelchair with stand by assist using stand pivot technique while holding onto bedside commode for stability 3.perform bed level exercises with 100% mastery for core and B LE strengthening 4. sustain stand at grab bar or holding onto bedside commode for >45 sec x 3 trials to improve stand tolerance. Plan of Care/Treatment Plan: 1x/day, 7 days/week x 1 week. Plan of care has been reviewed with the SUPERVISOR STAGE CARPENTRY providing the service under Physical Therapy direction. Initiate Physical Therapy intervention for strengthening, bed mobility, transfers, gait, stairs, balance training, use of assistive device. DISCHARGE RECOMMENDATIONS: HH PT vs short-term SNF based on ability and availability of caregivers at home PLAN OF CARE/TREATMENT PLAN: 1-2x/day, 7 days/ week x 1 week Plan of care has been reviewed with the SUPERVISOR STAGE CARPENTRY providing the service under Physical therapy direction. Initiate physical therapy intervention for strengthening, bed mobility, transfers, gait, stairs, balance training, use of assistive device. TREATMENT CODE/TIME: 82386/[id number]
[2025-03-20 15:00] VITALS: BP 128/69; PULSE 75; RESP 15; TEMP 36.7; O2SAT 92
[2025-03-20 19:33] VITALS: BP 121/72; PULSE 72; RESP 18; TEMP 36.4; O2SAT 98
[2025-03-20] MEDS: Lidocaine 5% Patch 2 PATCH TP (20:02)
[2025-03-21] MEDS: ceFAZolin 2 GM/50 ML BAG IVPB ×3 (02:00→17:50)
[2025-03-21] MEDS: Normal Saline Flush 10 ML SYR IVP ×3 (02:00→20:30)
[2025-03-21 08:14] VITALS: BP 129/74; PULSE 69; RESP 17; TEMP 36.5; O2SAT 95
[2025-03-21] MEDS: Enoxaparin 40 MG/0.4 ML SYR SC (08:38)
[2025-03-21] MEDS: Celecoxib 100 MG CAP PO ×2 (08:41→20:35)
[2025-03-21] MEDS: Acetaminophen 325 MG TAB 650 MG PO ×4 (08:47→20:27)
[2025-03-21] MEDS: Lidocaine Patch Removal 2 EACH TP (08:48)
[2025-03-21] MEDS: Clotrimazole 1% 15 GM TUBE TP ×2 (08:48→20:29)
[2025-03-21] MEDS: Magnesium Chloride 64 MG TABCR PO (12:05)
--- NOTE | 2025-03-21 15:13 | PT.INTREAT ---
PT Notes Visit Reasons: Bacteemia Inpatient Physical Therapy Treatment Note [facility] Date: 03/21/25 PRECAUTIONS: fall precautions SUBJECTIVE: I am just starting to pack up . I will be going home tomorrow later in the afternoon. Pt reports she has noticed the Celebrex has helped with her shoulder and knee pain. OBJECTIVE: ? PAIN: some pain noted in RLE today which she states is due to her edema VITALS: monitored by nursing Therapeutic Activities ([id number]): Direct one-on-one instruction in dynamic activities to improve functional performance. ? BED MOBILITY/TRANSFERS? Supine-sit: SBA ? Sit-supine: SBA? Sit-stand: CGA ?x 2 at grab bar and x 2 at commode ? Stand-sit: CGA? x2 at grab bar and x2 at commode? Bed<->Chair: CGA ?with use of commode for BUE support in a 3/4 stand position ? Static stand at grab bar in upright posture x 40 sec x 2 able to release with 1UE however utilizes head against wall for stability. -Provided skilled cues and instruction on performance and technique throughout. ? Exercises: quad sets, heel slides, SLRs (AAROM on RLE), bridges to about 50%, sidelying clams x10 each bilaterally ? seated : LAQ, marching, AP, Hip abd/add with knee flexion; BUE: scap retraction, bicep curls, rows , horizontal abduction and ER 5 reps BUE ASSESSMENT:?Pt requires tactile and verbal cues/assistance to complete HEP for BUE and supine BLE. Seated LE pt able to perform with visual cue. Pt a full participant in bed exercise session today before doing a stand pivot transfer to her wheelchair. She has significant glute atrophy especially on the RLE making it difficult for her to perform bridges and clams. She continues to be very particular about her stand pivot transfer. She only requires CGA for this but she does not perform this with the best posture. She was provided with an updated HEP today to allow her to perform exercises independently. PLAN: continue strengthening progressions, attempt safer transfers TREATMENT CODE/TIME: Ther Act (27986) x1, [id number] - 39min DISCHARGE RECOMMENDATION: PT
[2025-03-21 19:38] VITALS: BP 114/70; PULSE 76; RESP 19; TEMP 36.5; O2SAT 94
[2025-03-21] MEDS: Lidocaine 5% Patch 2 PATCH TP (20:28)
[2025-03-22] MEDS: ceFAZolin 2 GM/50 ML BAG IVPB ×2 (02:26→09:44)
[2025-03-22 07:21] VITALS: BP 117/67; PULSE 59; RESP 16; TEMP 36.6; O2SAT 92
--- NOTE | 2025-03-22 09:40 | CMDISCH_ITS ---
Date of service: 03/22/25 Time of Service: 09:41 LACE Index Scoring Tool Questions: Length of Stay (in days): 7 - 13 Was the patient admitted via the E.D.?: No E.D. Visits: 31 Answers: Total Score: 9 Risk of Readmission: Low Risk Care Management Discharge Plan Reason for Hospitalization: bacteremia Discharge Plan: Angeline will be discharged home today with new PT/OT/RN/INBOUND SALES MANAGER services. It is recommended that Angeline follow up with her community providers, and discharge plan of care. Angeline will be transported home via private car by her son this afternoon. New medications were sent to [facility] in [facility], cost of medication was presented to the patient; Patient expressed understanding of cost and is agreeable. Patient/Family Education Needs: review of discharge instructions, activity, limitations, and plan of care. Discuss ask me three. Services Needed at Discharge: Home Health Care Services
[2025-03-22] MEDS: Clotrimazole 1% 15 GM TUBE TP (09:43)
[2025-03-22] MEDS: Acetaminophen 325 MG TAB 650 MG PO ×2 (09:44→12:29)
[2025-03-22] MEDS: Normal Saline Flush 10 ML SYR IVP ×2 (09:44→10:23)
[2025-03-22] MEDS: Enoxaparin 40 MG/0.4 ML SYR SC (09:44)
[2025-03-22] MEDS: Celecoxib 100 MG CAP PO (09:44)
[2025-03-22] MEDS: Lidocaine Patch Removal 2 EACH TP (09:45)
--- NOTE | 2025-03-22 11:57 | PT.INTREAT ---
PT Notes Visit Reasons: Bacteemia Date: 03/22/25 PRECAUTIONS: fall precautions SUBJECTIVE: Pt in bed when approched for therapy this morning, pt reports she would like to decline OOB activity for now to conserve her energy in preparation for going home. agreed to bel level exercises. OBJECTIVE: ? PAIN: some pain noted in RLE today which she states is due to her edema Therapeutic procedures 43837 mins: Instruction in therapeutic exercises to develop strength and endurance, range of motion and flexibility. HEP instruction: Provided skilled instruction in proper exercise performance: Provided skilled manual cues to facilitate proper muscle recruitment and/or movement pattern: Supine SLR AROM LLE, AAROM RLE using belt [id number] Supine heel slides AROM LLE, AAROM RLE using belt [id number] Supine hip abduction AROM LLE, AAROM RLE using belt [id number] Supine glute sets Supine clamshells [id number] Supine ankle pumping Supine ankle circles Hooklying trunk rotation [id number] Log rolling using handrails Quadratus lumborum stretch in supine using handrail and hooklying trunk counter rotation ASSESSMENT:?pt did able to perform all exercise with good execution, able to reach end point using belt for stretch. PLAN: pt DC to home later in the afternoon. TREATMENT CODE/TIME: [id number] 25mins (11:20-11:45am) DISCHARGE RECOMMENDATION: PT
[2025-03-22] MEDS: Magnesium Chloride 64 MG TABCR PO (12:29)
--- NOTE | 2025-03-22 12:33 | DSE_ITS ---
Date of service: 03/22/25 Time of Service: 12:33 DS: Diagnosis Discharge Diagnosis (1) Bacteremia: Status: Acute (2) Large hiatal hernia: Status: Acute (3) Low back pain: Status: Acute (4) Osteoarthritis: Status: Chronic (5) Degenerative arthritis of hip: Status: Acute (6) Deficit in activities of daily living (ADL): Status: Acute (7) On deep vein thrombosis (DVT) prophylaxis: Status: Acute Discharge Plan Disposition Patient Disposition: Home W/Home Health Services Condition: Improving Discharge Details Reason For Visit: Bacteemia Admit Date/Time: 03/10/25 14:20 Admit Provider: Joan Larkin Attending Provider: Joan Larkin Primary Care Provider: Rambo Rg Hospital Course Hospital Course: This is a morbidly obese female with past medical history significant for osteoarthritis degenerative arthritis, cirrhosis, GERD, back pain who presented to the emergency department with complaints of general malaise back pain exacerbation. Workup in the emergency department was most concerning for bilateral lobe pneumonia she was unable to be safely ambulated and was admitted under hospitalist service for antibiotics and physical therapy. Blood cultures did grow positive for group B strep. Plan is for cefazolin for a 2- week course. Second set of blood cultures on March 08 remained negative with antibiotics completion due for 03/22/2025 via midline. Right hip pain treated by orthopedic services with steroid infiltration with ongoing pain control.The patient has significant deformity of both of her ankles with notable knee arthritis which will also hinder her rehabilitation. It is thought that she will be realistically reliant on wheelchair for mobility. The patient was transition to swing level status to continue working with physical therapy and to complete her course of IV antibiotics. She has remained medically stable. She has been weaned off oxygen. She is eating and drinking and bowels and bladder functioning. Pain has been managed on scheduled Tylenol and Celebrex. Dilaudid for breakthrough pain was barely needed. 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 Follow-up with PCP within 7 days of discharge please. Recommending referral to orthopedics for evaluation of need of steroids infiltration Recommendation for PCP follow-up: Needs and orthopedic referral with Dr. Arevalo at [facility] Recommending GI and pulmonary referrals for findings listed below Chest CT report: - Large retrocardiac hiatal hernia w/o other mediastinal masses; questioning to a somewhat ectatic SVC -Few lymph nodes in the right infrahilar region around the right main pulmonary vein. These correspond to a small right pericardiac density on chest x-ray. Discussed with Dr Durant [place] Meds and New Rx's Prescriptions: New celecoxib [Celebrex] 100 mg Capsule 100 mg PO BID Qty: 60 0RF lidocaine 5 % Adhesive Patch,Medicated 2 patch topical Q24H Qty: 60 0RF magnesium chloride [Mag 64] 64 mg Tablet,Delayed Release (Dr/Ec) 64 mg PO DAILY@1200 Qty: 30 0RF polyethylene glycol 3350 17 gram Powder In Packet 17 g PO DAILY PRN PRN (Reason: Constipation) Qty: 30 0RF Continued clotrimazole 1 % cream 1 applic topical BID cyclobenzaprine 5 mg tablet 5 mg PO TID PRN omeprazole 20 mg capsule,delayed release(DR/EC) 20 mg PO DAILY ursodiol 500 mg tablet 500 mg PO .COMPLEX Rx Instructions: 500 mg orally q am and 1000mg q pm; Discontinued ibuprofen [Advil] 200 mg tablet 400 mg PO Q6H PRN Discharge Instructions Referrals: Rambo Rg [Primary Care Provider, Medicine] Referral Note: Follow-up with PCP within 7 days of discharge Activity:: Activity as Tolerated Equipment/Supplies:: W/C Diet:: As Tolerated Discharge Orders Discharge Orders: Discharge Order (Routine); Ordered 03/22/25 Ordered By: Blanca San DS: Summary Time Spent with Patient providing and/or coordinating discharge services: Greater than 30 minutes Status at Discharge Functional status at discharge: wheelchair bound (walker for transfer ) Overall status at discharge: patient is progressing back to baseline Mental Status: mental status grossly normal Speech and Movement: speech and movement normal Mood: congruent mood Affect: normal affect Exam Narrative Exam Narrative: Frail elderly 80-year-old female patient without acute distress, neurologically intact ,clear lungs, S1-S2 regular heart, abdomen is nondistended soft nontender,ankles and feet deformities with chronic dark discoloration, pulses are positive palpable to all 4 extremities Psych Mental Status: mental status grossly normal Speech and Movement: speech and movement normal Mood: congruent mood Affect: normal affect DS: Data Vitals/I&O Vitals and I&O: Vital Signs Temperature 36.6 C 03/22/25 07:21 Temperature Source Temporal Artery Scan 03/22/25 07:21 Pulse 59 L 03/22/25 07:21 Respiratory Rate 16 03/22/25 07:21 Blood Pressure 117/67 03/22/25 07:21 Blood Pressure Mean 83 03/22/25 07:21 Pulse Oximetry 92 03/22/25 07:21 Oxygen Delivery Method Room Air 03/22/25 07:21 Oxygen Flow Rate 0 03/22/25 07:21 Pain Level 2 03/22/25 12:29 Intake & Output 03/21/25 03/22/25 03/22/25 23:59 11:59 23:59 Intake Total 50 / 390 336 / 336 Balance 50 / -10 336 / 336 Intake: IV 50 / 150 100 / 100 Oral 236 / 236 Other: Urine Color Yellow Urine Odor Normal Comment bed denton with mixed stool Stool Size Moderate Large Stool Characteristics Soft Soft Liquid PFSH All Active Problems (Updated 03/11/25 @ 00:01 by PREMA GONZALES) Bacteremia (Acute) Large hiatal hernia (Acute) On deep vein thrombosis (DVT) prophylaxis (Acute) Arthritis of right knee (Acute) Spondylosis of lumbar region without myelopathy or radiculopathy (Acute) Acquired pes planovalgus (Acute) Arthritis of right hip (Acute) Palliative care encounter (Acute) Deficit in activities of daily living (ADL) (Acute) ACP (advance care planning) (Acute) Degenerative arthritis of hip (Acute) Osteoarthritis (Chronic) Low back pain (Acute) Community acquired bilateral lower lobe pneumonia (Acute) Chills (Acute) Lung infiltrate (Acute) Lumbar back pain (Acute) Vitamin D deficiency (Acute) Senile cataract (Acute) Obesity (Chronic) GERD (gastroesophageal reflux disease) (Chronic) Biliary cirrhosis (Acute) Surgical History History of tonsillectomy History of hand surgery Left thumb tendon repair History of hysterectomy History of cholecystectomy History of appendectomy Social History Smoking/Tobacco Use Status: Former Tobacco Use Smoking risk assessment performed?: Yes Alcohol Intake: current Alcohol Intake frequency: a few times a week Alcohol type: beer, wine and hard liquor Drug use: Daily Substance use type: marijuana Housing: house Do you feel safe at home: Yes Do you feel safe in your relationship?: Yes Time Spent with Patient Time Spent with Patient: >85 minutes Time was spent: preparing to see the patient(eg.review tests), obtaining and/or reviewing separately otained hiistory, ordering medications,tests, procedures, referring, communicating with other health career and transition teacher, indepentently interpreting results, counseling the patient, care coordination and other
--- NOTE | 2025-03-22 12:34 | PDOC.HHF2F_ITS ---
Home Health Referral Home Health Orders Clinical synopsis of why skilled professionals are needed: This is a morbidly obese female with past medical history significant for osteoarthritis degenerative arthritis, cirrhosis, GERD, back pain who presented to the emergency department with complaints of general malaise back pain exacerbation. Workup in the emergency department was most concerning for bilateral lobe pneumonia she was unable to be safely ambulated and was admitted under hospitalist service for antibiotics and physical therapy. Blood cultures did grow positive for group B strep. Plan is for cefazolin for a 2- week course. Second set of blood cultures on March 08 remained negative with antibiotics completion due for 03/22/2025 via midline. Right hip pain treated by orthopedic services with steroid infiltration with ongoing pain control.The patient has significant deformity of both of her ankles with notable knee arthritis which will also hinder her rehabilitation. It is thought that she will be realistically reliant on wheelchair for mobility. The patient was transition to swing level status to continue working with physical therapy and to complete her course of IV antibiotics. She has remained medically stable. She has been weaned off oxygen. She is eating and drinking and bowels and bladder functioning. Pain has been managed on scheduled Tylenol and Celebrex. Dilaudid for breakthrough pain was barely needed. 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 Follow-up with PCP within 7 days of discharge please. Recommending referral to orthopedics for evaluation of need of steroids infiltration Recommendation for PCP follow-up: Needs and orthopedic referral with Dr. Arevalo at [facility] Recommending GI and pulmonary referrals for findings listed below Chest CT report: - Large retrocardiac hiatal hernia w/o other mediastinal masses; questioning to a somewhat ectatic SVC -Few lymph nodes in the right infrahilar region around the right main pulmonary vein. These correspond to a small right pericardiac density on chest x-ray. Discussed with Dr Durant Registered Nurse: Check all that apply Instruct on new or changed medication(s)/assess compliance: Ordered Assess for exacerbation of medical condition, instruct patient/caregivers on signs and symptoms to report for early detection: Ordered Physical Therapist: Check all that apply Increase strength & endurance for safe mobility at home: Ordered To design/establish home maintenance program: Ordered Fall reduction therapy program for patient with history of frequent falls: Ordered Home safety evaluation and teaching/gait training including stair management (if applicable): Ordered Occupational Therapist: Evaluate and treat for patient unable to perform ADL/IADL/self-care: Ordered Upper extremity strengthening, range and motion: Ordered Night Court Magistrate: Assist with community resources: Ordered Assist with meterman care planning: Ordered Home Bound Status Requires the aid of supportive device (check all that apply): Wheelchair Describe why leaving home would require a considerable and taxing effort: Requires frequent rest periods Encounter Date and Reason: I certify that a FTF encounter for this patient was performed on March 22, 2025 and that such encounter was related to the primary reason the patient requires home health services. The encounter was conducted in the following manner: * By me as the certifying physician, MOLDED GOODS EMBOSSING PRESS OPERATOR, PA or * By an inpatient physician, MOLDED GOODS EMBOSSING PRESS OPERATOR or PA during an inpatient stay who communicated findings to me, Certification And Authentication I certify that I composed the above information based on my clinical judgment relating to this patient's medical condition and, if applicable, clinical findings communicated to me by the NPP or inpatient physician who performed the FTF encounter. Name of Provider that will be monitoring home health services: Rambo Rg
== END 2025-03-22 17:10 | disposition home health service (06) | DRG 872 ==
PROVIDERS: Admitting Provider Nurse Practitioner Acute Care; PCP Registered Nurse; Responsible Provider Nurse Practitioner Acute Care; Visit Provider Nurse Practitioner Acute Care
DX: R78.81 Bacteremia (principal); Z79.2 Long term (current) use of antibiotics; K44.9 Diaphragmatic hernia without obstruction or gangrene; Z73.89 Other problems related to life management difficulty; E66.01 Morbid (severe) obesity due to excess calories; K74.60 Unspecified cirrhosis of liver; K21.9 Gastro-esophageal reflux disease without esophagitis; M25.551 Pain in right hip; M47.816 Spondylosis without myelopathy or radiculopathy, lumbar region; E55.9 Vitamin D deficiency, unspecified; K08.409 Partial loss of teeth, unspecified cause, unspecified class; I87.2 Venous insufficiency (chronic) (peripheral); B95.1 Streptococcus, group B, as the cause of diseases classified elsewhere; Z79.899 Other long term (current) drug therapy; Z99.3 Dependence on wheelchair; Z87.891 Personal history of nicotine dependence; F12.90 Cannabis use, unspecified, uncomplicated; M21.42 Flat foot [pes planus] (acquired), left foot; M21.41 Flat foot [pes planus] (acquired), right foot; R59.0 Localized enlarged lymph nodes; M16.11 Unilateral primary osteoarthritis, right hip; Z68.36 Body mass index [BMI] 36.0-36.9, adult; Z87.01 Personal history of pneumonia (recurrent)
CPT/HCPCS: 00123; 36415; 80048; 97110; 97162; 97166; 97530; 97535; 99306; 99316; J1650; 83735; 85025; 87070; 87205; 99310; J0690; J3475; J3490; J7620

== ENCOUNTER → 2025-06-26 15:36 | Outpatient (BNVA) | payer MEDICARE, SELFPAY | PROVIDERS: PCP Registered Nurse; Visit Provider Student in an Organized Health Care Education/Training Program ==